=== PATIENT | male | born 1955 | race Caucasian/White ===

== ENCOUNTER 2016-10-30 21:07 | Emergency (ER) | payer OTHER ==
[~2016-10-30] VITALS: Ht 180.3 cm; Wt 86.7 kg
[~2016-10-30 21:07] MED LIST: BLOOD PRESSURE PO; CIPR1TAB11 PO; CYAN100T PO; GABA1CAP4 PO; IBUP-1050 PO; NXM/40 PO; PROM25TA9 PO; XNX25 PO
[2016-10-30 21:10] VITALS: Ht 180.3 cm; Wt 86.7 kg
[2016-10-30] MEDS ORDERED: SODIUM CHLORIDE 0.9% 1000ML 1,000 ML IV STA ×2 (21:24)
[2016-10-30] MEDS ORDERED: PROMETHAZINE HCL INJ 25 MG in SODIUM CHLORIDE 0.9% 50ML 50 ML IV STA (21:24)
[2016-10-30 21:53] VITALS: O2SAT 98
[2016-10-30] MEDS ORDERED: NRV/5 PO (22:06)
[2016-10-30] MEDS ORDERED: METR1TAB4 PO (22:09)
[2016-10-30] MEDS ORDERED: ASCO-63 PO (22:11)
[2016-10-30] MEDS ORDERED: LACTTAB7 PO (22:11)
[2016-10-30 22:12] LABS: URINE APPEARANCE CLEAR (CLEAR); URINE BILIRUBIN NEG (NEG); URINE COLOR YELLOW; URINE NITRITE NEG (NEG); URINE PH 6.5 (4.5-7.5); URINE SPECIFIC GRAVITY 1.015 (1.000-1.030); UROBILINOGEN NEG (NEG); ZZUR CULT IF INDIC CLEAN CATCH NO
[2016-10-30 22:13] LABS: MANUAL MICROSCOPIC REQUIRED? NO; REVIEW REQ? NO
[2016-10-30 22:19] LABS: BASO % 1.1 %; BASO ABS # 0.11 K/uL (0-0.2); COMPLETE YES; HEMATOCRIT 42.2 % (42-52); IG% 0.3 %; LYMPH % 19.4 %; MEAN CELL VOLUME 90.6 fL (80-100); MEAN CORPUSCULAR HGB CONC 35.3 g/dl (32-36); MONO % 9.7 %; NEUT % 68.5 %; PLATELET COUNT 212 K/uL (130-400); RED BLOOD COUNT 4.66 M/uL (4.7-6.1); WHITE BLOOD COUNT 9.79 K/uL (4.8-10.8)
[2016-10-30 22:36] LABS: BUN/CREATININE RATIO 10.8 (10-20); CALCIUM 9.3 mg/dl (8.5-10.1); CREATININE 1.1 mg/dl (0.60-1.40); POTASSIUM 3.7 mmol/L (3.5-5.1)
[2016-10-30] MEDS ORDERED: CIPROFLOXACIN 400MG / 200ML D5W IV STA (22:51)
--- NOTE | 2016-10-30 23:33 | EMERGENCY ROOM VISIT NOTE ---
History First contact with patient: 21:21 Chief Complaint: HEMATURIA Stated Complaint: HEMATURIA History of Present Illness The patient is a 61 year old male who presents to the Emergency Room with complaints of hematuria for the past day has had urinary symptoms for the past week and bladder and flank discomfort. No history of UTIs. He's had kidney stones before but this does not feel the same. Patient smokes marijuana. No tobacco. Patient complains a subjective fever and chills. Patient denies chest pain, dyspnea, vomiting, diarrhea, testicular pain, penile pain, rectal pain. Patient also complains of some nausea. Review of Systems See HPI for pertinent positives & negatives. A total of 10 systems reviewed and were otherwise negative. Past Medical/Surgical History Medical Problems: (1) Diverticulitis (2) Hemorrhoids (3) Rectal fissure Surgical Problems: (1) History of bowel resection (2) S/P appendectomy (3) S/P cholecystectomy Family History Cancer Kidney disease Social History Smoking Status: Never Smoker Alcohol Use: occasionally Drug Use: marijuana Marital Status: Housing Status: lives with significant other Occupation Status: disabled Current/Historical Medications Scheduled Amlodipine Besylate (Amlodipine Besylate), 5 MG PO DAILY Ascorbic Acid (Vitamin C), 1 TAB PO DAILY Cyanocobalamin (Vitamin B-12), Unknown Dose PO DAILY Esomeprazole Magnesium (Nexium), 40 MG PO DAILY Lactobacillus (Acidophilus), 1 TAB PO DAILY Scheduled PRN Alprazolam (Alprazolam), 0.25 MG PO BID PRN for Anxiety Ciprofloxacin Tab (Cipro), 500 MG PO BID PRN for GI Upset Metronidazole (Flagyl), 250 MG PO BID PRN for GI Upset Promethazine Hcl (Phenergan), 25 MG PO Q4H PRN for Nausea Physical Exam Vital Signs Date Time Temp Pulse Resp B/P (MAP) Pulse Ox O2 Delivery O2 Flow Rate FiO2 10/30/16 22:07 61 18 96 10/30/16 22:04 58 10/30/16 22:02 160/79 10/30/16 22:02 59 20 160/79 97 Room Air 10/30/16 21:53 98 Room Air 10/30/16 21:10 36.7 74 20 159/96 98 Room Air Physical Exam VITALS: Vitals are noted on the nurse's note and reviewed by myself. Vital signs hypertensive GENERAL: Pleasant male, in no acute distress, nondiaphoretic appearing older than stated age SKIN: The skin was without rashes, erythema, edema, or bruising. There is no tenting of the skin. Capillary reflex less than 2 seconds. HEAD: Normocephalic atraumatic. EARS: External auditory canals clear, tympanic membranes pearly lópez without erythema or effusion bilaterally. EYES: Pupils equal round and reactive to light and accommodation. Conjunctivae without injection, sclerae without icterus. Extraocular movements intact. NOSE: Patent, turbinates without inflammation or discharge. MOUTH: Mucous membranes mildly dry. Pharynx without erythema or exudate. Uvula midline. Airway patent. Tongue does not deviate. NECK: Supple without nuchal rigidity. No lymphadenopathy. No thyromegaly. Cervical spine is nontender. No JVD. HEART: Regular rate and rhythm without murmurs gallops or rubs. LUNGS: Clear to auscultation bilaterally without wheezes, rales or rhonchi. No dullness to percussion. No retractions or accessory muscle use. ABDOMEN: Positive bowel sounds x 4. Normal tympanic percussion. Soft, minimal discomfort superpubic area, no CVA tenderness, without masses or organomegaly. Powers sign negative. No guarding or rebound tenderness. MUSCULOSKELETAL: No muscle atrophy, erythema, or edema noted. NEURO: Patient was alert and oriented to person place and time. Normal sensation to light and sharp touch. No focal neurological deficits. Medical Decision & Procedures Laboratory Results 10/30/16 22:10 Red Blood Count 4.66, Mean Corpuscular Volume 90.6, Mean Corpuscular Hemoglobin 32.0, Mean Corpuscular Hemoglobin Concent 35.3, Mean Platelet Volume 10.0, Neutrophils (%) (Auto) 68.5, Lymphocytes (%) (Auto) 19.4, Monocytes (%) (Auto) 9.7, Eosinophils (%) (Auto) 1.0, Basophils (%) (Auto) 1.1, Neutrophils # (Auto) 6.70, Lymphocytes # (Auto) 1.90, Monocytes # (Auto) 0.95, Eosinophils # (Auto) 0.10, Basophils # (Auto) 0.11 10/30/16 22:10 Test 10/30/16 22:00 10/30/16 22:10 Urine Color YELLOW Urine Appearance CLEAR (CLEAR) Urine pH 6.5 (4.5-7.5) Urine Specific [place] 1.015 (1.000-1.030) Urine Protein NEG (NEG) Urine Glucose (UA) NEG (NEG) Urine Ketones NEG (NEG) Urine Occult Blood 2+ (NEG) Urine Nitrite NEG (NEG) Urine Bilirubin NEG (NEG) Urine Urobilinogen NEG (NEG) Urine Leukocyte Esterase TRACE (NEG) Urine WBC (Auto) 1-5 /hpf (0-5) Urine RBC (Auto) >30 /hpf (0-4) Urine Hyaline Casts (Auto) 0 /lpf (0-5) Urine Epithelial Cells (Auto) 5-10 /lpf (0-5) Urine Bacteria (Auto) NEG (NEG) White Blood Count 9.79 K/uL (4.8-10.8) Red Blood Count 4.66 M/uL (4.7-6.1) Hemoglobin 14.9 g/dL (14.0-18.0) Hematocrit 42.2 % (42-52) Mean Corpuscular Volume 90.6 fL (80-100) Mean Corpuscular Hemoglobin 32.0 pg (25-34) Mean Corpuscular Hemoglobin Concent 35.3 g/dl (32-36) Platelet Count 212 K/uL (130-400) Mean Platelet Volume 10.0 fL (7.4-10.4) Neutrophils (%) (Auto) 68.5 % Lymphocytes (%) (Auto) 19.4 % Monocytes (%) (Auto) 9.7 % Eosinophils (%) (Auto) 1.0 % Basophils (%) (Auto) 1.1 % Neutrophils # (Auto) 6.70 K/uL (1.4-6.5) Lymphocytes # (Auto) 1.90 K/uL (1.2-3.4) Monocytes # (Auto) 0.95 K/uL (0.11-0.59) Eosinophils # (Auto) 0.10 K/uL (0-0.5) Basophils # (Auto) 0.11 K/uL (0-0.2) RDW Standard Deviation 42.6 fL (36.4-46.3) RDW Coefficient of Variation 12.8 % (11.5-14.5) Immature Granulocyte % (Auto) 0.3 % Immature Granulocyte # (Auto) 0.03 K/uL (0.00-0.02) Prothrombin Time 11.0 SECONDS (9.0-12.0) Prothromb Time International Ratio 1.0 (0.9-1.1) Activated Partial Thromboplast Time 26.2 SECONDS (21.0-31.0) Partial Thromboplastin Ratio 1.0 Anion Gap 6.0 mmol/L (3-11) Est Creatinine Clear Calc Drug Dose 75.1 ml/min Estimated GFR () 83.5 Estimated GFR (Non- 72.1 BUN/Creatinine Ratio 10.8 (10-20) Calcium Level 9.3 mg/dl (8.5-10.1) Total Bilirubin 0.7 mg/dl (0.2-1) Direct Bilirubin 0.2 mg/dl (0-0.2) Aspartate Amino Transf (AST/SGOT) 14 U/L (15-37) Alanine Aminotransferase (ALT/SGPT) 19 U/L (12-78) Alkaline Phosphatase 62 U/L (45-117) Total Creatine Kinase 80 U/L (39-308) Total Protein 6.8 gm/dl (6.4-8.2) Albumin 3.9 gm/dl (3.4-5.0) Lipase 162 U/L (73-393) Medications Administered Medications (Trade) Dose Ordered Sig/Jorge Route Start Time Stop Time Status Last Admin Dose Admin Sodium Chloride 1,000 ml @ 999 mls/hr Q1H1M STAT IV 10/30/16 21:24 10/30/16 22:24 DC 10/30/16 22:04 999 MLS/HR Sodium Chloride 1,000 ml @ 125 mls/hr Q8H STAT IV 10/30/16 21:24 10/31/16 05:23 10/30/16 22:04 125 MLS/HR Promethazine HCl 25 mg/Sodium Chloride 51 ml @ 204 mls/hr NOW STAT IV 10/30/16 21:24 10/30/16 21:38 DC 10/30/16 22:04 204 MLS/HR Ciprofloxacin/ Dextrose (Cipro / D5W) 400 mg NOW STAT IV 10/30/16 22:51 10/30/16 22:52 DC 10/30/16 23:32 400 MG ED Course Prior records/ancillary studies reviewed. Triage Nursing notes reviewed. Additional history obtained from family The patient's history was concerning for hematuria with lower discomfort to his abdominal. Differential diagnosis: Etiologies such as bladder polyps, diverticulitis, PUD, biliary pathology, UTI , pancreatitis, obstruction, mesenteric ischemia, aortic pathology, infections, inflammatory bowel disease, renal colic, as well as others were entertained. Physical examination findings: As above. ER treatment provided: NSS, Phenergan On reassessment the patient felt better. Diagnostics interpreted by me: The labs revealed stable H&H. Hematuria on urinalysis with white blood cells present and sent for culture Imaging studies: US RENAL: Nonobstructing within the right kidney. Simple cyst right kidney. Otherwise, the kidneys are unremarkable. No hydronephrosis. Bilateral ureteral jets are visualized. Radiologist: Milad Riggs MD Exam and history seem consistent with possible urine infection with hematuria. Patient was advised to take antibiotics as directed and follow-up urology in a few days or here in the ER sooner for back pain, fevers, abdominal pain, severe pain, worsening signs or symptoms or as needed. Patient did not have an acute abdomen on exam. He is well-appearing. No leukocytosis. Stable H&H. By the evaluation outlined above emergent etiologies such as diverticulitis, PUD, biliary pathology, pancreatitis, obstruction, mesenteric ischemia, aortic pathology, inflammatory bowel disease, renal colic, as well as others were deemed relatively unlikely. The pt informed about the findings as listed above. All questions were answered and pleased with the treatment. Return instructions were outlined and the patient was discharged in stable condition. Outpatient prescription management: Cipro Referral: The patient was referred back to their primary care physician and urology for follow-up in 2 to 3 days for a recheck of the current condition. case reviewed with my Attending. Medical Decision As above Medication Reconcilliation Current Medication List: was personally reviewed by me Blood Pressure Screening Patient's blood pressure: Elevated blood pressure Blood pressure disposition: Elevated BP felt to be situational Impression Primary Impression: UTI (urinary tract infection) Additional Impression: Hematuria Departure Information Dispostion Home / Self-Care Condition GOOD Referrals Chloe Flores C.R.N.P. (PCP) Patient Instructions My [facility] Additional Instructions Ciprofloxacin(Cipro) 500mg: Take one pill twice daily for 7 days for your urine infection. All antibiotics can cause diarrhea. If this occurs and you feel worse or it does not resolve in 1-2 days follow up with your doctor or return to the Emergency Department as this could be signs of serious underlying problems. If you experience any pain in your tendons or any tendon injury return to the ER for re-evaluation. Any medication can cause an allergic reaction, stop the pills immediately and return to the ER for rash, hives, breathing difficulties, or swelling. Acetaminophen(Tylenol) may be used for fever or pain. Use 1000mg every six hours as needed. Avoid using more than 3000mg in a 24 hour period. Rest and drink plenty of fluids as tolerated. Slow sips of water or sports drinks are recommended instead of large amounts all at once. Continue current medications. Once your stomach is settled start with a clear liquid diet (jello, soup broth, etc.) and then advance as tolerated. You should avoid full, heavy meals for about 24 hrs from the time your symptoms resolved. Return to the ER immediately for worsening or persistent abdominal/back pain, vomiting, fevers, worsening of your condition, or as needed. Follow up with urology within 2-3 days for a recheck of the current condition. Call for an appointment. Problem Qualifiers Primary Impression: UTI (urinary tract infection) Urinary tract infection type: acute cystitis Hematuria presence: with hematuria Qualified Codes: N30.01 - Acute cystitis with hematuria Additional Impression: Hematuria Hematuria type: unspecified type Qualified Codes: R31.9 - Hematuria, unspecified
[2016-10-30] MEDS ORDERED: CIPR1TAB10 PO (23:35)
--- NOTE | 2016-10-30 23:40 | EMERGENCY ROOM VISIT NOTE ---
ED Visit Note First contact with patient: 21:36 Agree with the physician or assistant's evaluation of this patient. Patient's ultrasound was negative, patient has hematuria will be treated with an antibiotic and referred to urology for further evaluation. We did discuss the findings with the patient at bedside at 2340 Problem List Medical Problems: (1) Diverticulitis Status: Resolved (2) Hemorrhoids Status: Resolved (3) Rectal fissure Status: Resolved Surgical Problems: (1) History of bowel resection Status: Resolved (2) S/P appendectomy Status: Resolved (3) S/P cholecystectomy Status: Resolved Current/Historical Medications Scheduled Amlodipine Besylate (Amlodipine Besylate), 5 MG PO DAILY Ascorbic Acid (Vitamin C), 1 TAB PO DAILY Ciprofloxacin Hcl (Cipro), 500 MG PO BID Cyanocobalamin (Vitamin B-12), Unknown Dose PO DAILY Esomeprazole Magnesium (Nexium), 40 MG PO DAILY Lactobacillus (Acidophilus), 1 TAB PO DAILY Scheduled PRN Alprazolam (Alprazolam), 0.25 MG PO BID PRN for Anxiety Ciprofloxacin Tab (Cipro), 500 MG PO BID PRN for GI Upset Metronidazole (Flagyl), 250 MG PO BID PRN for GI Upset Promethazine Hcl (Phenergan), 25 MG PO Q4H PRN for Nausea Allergies Coded Allergies: Latex1 -Allergic Contact Dermititis (Verified Allergy, Mild, REDNESS, ) Vital Signs Date Time Temp Pulse Resp B/P (MAP) Pulse Ox O2 Delivery O2 Flow Rate FiO2 10/30/16 22:07 61 18 96 10/30/16 22:04 58 10/30/16 22:02 160/79 10/30/16 22:02 59 20 160/79 97 Room Air 10/30/16 21:53 98 Room Air 10/30/16 21:10 36.7 74 20 159/96 98 Room Air Laboratory Results 10/30/16 22:10 Red Blood Count 4.66, Mean Corpuscular Volume 90.6, Mean Corpuscular Hemoglobin 32.0, Mean Corpuscular Hemoglobin Concent 35.3, Mean Platelet Volume 10.0, Neutrophils (%) (Auto) 68.5, Lymphocytes (%) (Auto) 19.4, Monocytes (%) (Auto) 9.7, Eosinophils (%) (Auto) 1.0, Basophils (%) (Auto) 1.1, Neutrophils # (Auto) 6.70, Lymphocytes # (Auto) 1.90, Monocytes # (Auto) 0.95, Eosinophils # (Auto) 0.10, Basophils # (Auto) 0.11 10/30/16 22:10 Test 10/30/16 22:00 10/30/16 22:10 Urine Color YELLOW Urine Appearance CLEAR (CLEAR) Urine pH 6.5 (4.5-7.5) Urine Specific [place] 1.015 (1.000-1.030) Urine Protein NEG (NEG) Urine Glucose (UA) NEG (NEG) Urine Ketones NEG (NEG) Urine Occult Blood 2+ (NEG) Urine Nitrite NEG (NEG) Urine Bilirubin NEG (NEG) Urine Urobilinogen NEG (NEG) Urine Leukocyte Esterase TRACE (NEG) Urine WBC (Auto) 1-5 /hpf (0-5) Urine RBC (Auto) >30 /hpf (0-4) Urine Hyaline Casts (Auto) 0 /lpf (0-5) Urine Epithelial Cells (Auto) 5-10 /lpf (0-5) Urine Bacteria (Auto) NEG (NEG) White Blood Count 9.79 K/uL (4.8-10.8) Red Blood Count 4.66 M/uL (4.7-6.1) Hemoglobin 14.9 g/dL (14.0-18.0) Hematocrit 42.2 % (42-52) Mean Corpuscular Volume 90.6 fL (80-100) Mean Corpuscular Hemoglobin 32.0 pg (25-34) Mean Corpuscular Hemoglobin Concent 35.3 g/dl (32-36) Platelet Count 212 K/uL (130-400) Mean Platelet Volume 10.0 fL (7.4-10.4) Neutrophils (%) (Auto) 68.5 % Lymphocytes (%) (Auto) 19.4 % Monocytes (%) (Auto) 9.7 % Eosinophils (%) (Auto) 1.0 % Basophils (%) (Auto) 1.1 % Neutrophils # (Auto) 6.70 K/uL (1.4-6.5) Lymphocytes # (Auto) 1.90 K/uL (1.2-3.4) Monocytes # (Auto) 0.95 K/uL (0.11-0.59) Eosinophils # (Auto) 0.10 K/uL (0-0.5) Basophils # (Auto) 0.11 K/uL (0-0.2) RDW Standard Deviation 42.6 fL (36.4-46.3) RDW Coefficient of Variation 12.8 % (11.5-14.5) Immature Granulocyte % (Auto) 0.3 % Immature Granulocyte # (Auto) 0.03 K/uL (0.00-0.02) Prothrombin Time 11.0 SECONDS (9.0-12.0) Prothromb Time International Ratio 1.0 (0.9-1.1) Activated Partial Thromboplast Time 26.2 SECONDS (21.0-31.0) Partial Thromboplastin Ratio 1.0 Anion Gap 6.0 mmol/L (3-11) Est Creatinine Clear Calc Drug Dose 75.1 ml/min Estimated GFR () 83.5 Estimated GFR (Non- 72.1 BUN/Creatinine Ratio 10.8 (10-20) Calcium Level 9.3 mg/dl (8.5-10.1) Total Bilirubin 0.7 mg/dl (0.2-1) Direct Bilirubin 0.2 mg/dl (0-0.2) Aspartate Amino Transf (AST/SGOT) 14 U/L (15-37) Alanine Aminotransferase (ALT/SGPT) 19 U/L (12-78) Alkaline Phosphatase 62 U/L (45-117) Total Creatine Kinase 80 U/L (39-308) Total Protein 6.8 gm/dl (6.4-8.2) Albumin 3.9 gm/dl (3.4-5.0) Lipase 162 U/L (73-393) Medications Administered Medications (Trade) Dose Ordered Sig/Jorge Route Start Time Stop Time Status Last Admin Dose Admin Sodium Chloride 1,000 ml @ 999 mls/hr Q1H1M STAT IV 10/30/16 21:24 10/30/16 22:24 DC 10/30/16 22:04 999 MLS/HR Sodium Chloride 1,000 ml @ 125 mls/hr Q8H STAT IV 10/30/16 21:24 10/31/16 05:23 10/30/16 22:04 125 MLS/HR Promethazine HCl 25 mg/Sodium Chloride 51 ml @ 204 mls/hr NOW STAT IV 10/30/16 21:24 10/30/16 21:38 DC 10/30/16 22:04 204 MLS/HR Ciprofloxacin/ Dextrose (Cipro / D5W) 400 mg NOW STAT IV 10/30/16 22:51 10/30/16 22:52 DC 10/30/16 23:32 400 MG Departure Information Impression Primary Impression: UTI (urinary tract infection) Additional Impression: Hematuria Dispostion Home / Self-Care Condition GOOD Prescriptions Ciprofloxacin Hcl (CIPRO) 500 Mg Tab 500 MG PO BID for 7 Days, #14 TAB Prov: Shruthi Sommers .DARLING 10/30/16 Referrals Chloe Flores C.R.N.P. (PCP) Aron Valenzuela MD Forms WORK / SCHOOL INSTRUCTIONS, HOME CARE DOCUMENTATION FORM, IMPORTANT VISIT INFORMATION Patient Instructions Hematuria, UTI, My [facility] Additional Instructions Ciprofloxacin(Cipro) 500mg: Take one pill twice daily for 7 days for your urine infection. All antibiotics can cause diarrhea. If this occurs and you feel worse or it does not resolve in 1-2 days follow up with your doctor or return to the Emergency Department as this could be signs of serious underlying problems. If you experience any pain in your tendons or any tendon injury return to the ER for re-evaluation. Any medication can cause an allergic reaction, stop the pills immediately and return to the ER for rash, hives, breathing difficulties, or swelling. Acetaminophen(Tylenol) may be used for fever or pain. Use 1000mg every six hours as needed. Avoid using more than 3000mg in a 24 hour period. Rest and drink plenty of fluids as tolerated. Slow sips of water or sports drinks are recommended instead of large amounts all at once. Continue current medications. Once your stomach is settled start with a clear liquid diet (jello, soup broth, etc.) and then advance as tolerated. You should avoid full, heavy meals for about 24 hrs from the time your symptoms resolved. Return to the ER immediately for worsening or persistent abdominal/back pain, vomiting, fevers, worsening of your condition, or as needed. Follow up with urology within 2-3 days for a recheck of the current condition. Call for an appointment. Problem Qualifiers
[2016-10-30] MEDS ORDERED: ONDANSETRON HOME PACK 4MG OD TAB PO ONE (23:45)
[2016-10-30] MEDS ORDERED: CIPROFLOXACIN 500MG HOME PACK PO ONE (23:45)
[2016-10-30 23:52] VITALS: BP 160/79; PULSE 61; TEMP 36.7; O2SAT 96
--- NOTE | 2016-10-31 07:10 | DIAGNOSTIC IMAGING REPORT ---
RENAL ULTRASOUND HISTORY: HEMATURIA, FLANK PAIN COMPARISON: Abdomen and pelvis CT 07/08/2015. FINDINGS: Right kidney: 10.6 cm. No hydronephrosis. Normal corticomedullary differentiation and cortical thickness. A 1.3 cm interpolar stone. A 1.5 cm lower pole cyst. A 1.1 cm interpolar cyst. Left kidney: 10.8 cm. No hydronephrosis. Normal corticomedullary differentiation and cortical thickness. Bladder: No bladder wall thickening. The bilateral ureteral jets were identified. IMPRESSION: Stable right-sided nephrolithiasis. No hydronephrosis. Stable right renal cysts. Electronically signed by: Gurvinder Dickey M.D. 10/31/2016 7:08 AM Dictated Date/Time: 10/31/2016 7:06 AM
== END 2016-10-30 23:52 | disposition home or self-care (01) ==
LOC: C.EDB 21:08 → C.EDC 23:52
DX: N39.0 Urinary tract infection, site not specified (principal); R31.9 Hematuria, unspecified; K57.92 Diverticulitis of intestine, part unspecified, without perforation or abscess without bleeding; Z90.49 Acquired absence of other specified parts of digestive tract; Z98.890 Other specified postprocedural states; Z80.9 Family history of malignant neoplasm, unspecified; Z84.1 Family history of disorders of kidney and ureter

== ENCOUNTER 2016-11-05 07:08 | Emergency (ER) | payer OTHER ==
[~2016-11-05] VITALS: Ht 180.3 cm; Wt 87.4 kg
[~2016-11-05 07:08] MED LIST changes: +ASCO-63 PO; -BLOOD PRESSURE PO; +CIPR1TAB10 PO; -GABA1CAP4 PO; -IBUP-1050 PO; +LACTTAB7 PO; +METR1TAB4 PO; +NRV/5 PO
[2016-11-05 07:12] VITALS: TEMP 36.4; Ht 180.3 cm; Wt 87.4 kg
[2016-11-05] MEDS ORDERED: MoRPHine SULFATE 4 MG/ML 1 ML CARP\\VIAL IV STA (07:37)
[2016-11-05] MEDS ORDERED: SODIUM CHLORIDE 0.9% 1000ML 1,000 ML IV STA (07:37)
[2016-11-05] MEDS ORDERED: ONDANSETRON INJ 2 MG/ML 2 ML VIAL IV STA (07:37)
[2016-11-05 07:57] LABS: BASO % 1.6 %; BASO ABS # 0.13 K/uL (0-0.2); COMPLETE YES; EOS % 2.1 %; HEMATOCRIT 43.9 % (42-52); IG% 0.2 %; LYMPH ABS # 2.27 K/uL (1.2-3.4); MEAN CELL VOLUME 87.5 fL (80-100); MEAN CORPUSCULAR HEMOGLOBIN 32.1 pg (25-34); MEAN CORPUSCULAR HGB CONC 36.7 g/dl (32-36); MEAN PLATELET VOLUME 10.4 fL (7.4-10.4); MONO % 14.9 %; NEUT % 53.2 %; PLATELET COUNT 248 K/uL (130-400); RED BLOOD COUNT 5.02 M/uL (4.7-6.1)
--- NOTE | 2016-11-05 08:21 | DIAGNOSTIC IMAGING REPORT ---
ABD/PELVIS WITHOUT FOR STONE CT DOSE: 1448.43 mGy.cm HISTORY: Pain 07/08/2015 TECHNIQUE: Multiaxial CT images of the abdomen and pelvis were performed without the use of intravenous and oral contrast according to the standard department stone protocol. A dose lowering technique was utilized adhering to the principles of ALARA. COMPARISON STUDY: 07/08/2015 FINDINGS: Lung bases are clear. Liver spleen and pancreas are unremarkable. Prior cholecystectomy. The adrenal glands are normal. 2 5 mm nonobstructing calcifications mid pole right kidney. Small cyst lower aspect right kidney unchanged in the prior study. No evidence for an obstructing urinary tract calculus. The bowel pattern is nonobstructive. Findings of chronic sigmoid diverticulosis. No evidence for acute diverticulitis. Lipoma anterior to the right hip unchanged in the prior study. This is considered a benign finding. IMPRESSION: 1. No acute process the abdomen or pelvis. 2. 2 nonobstructing right renal calcifications. 3. Chronic sigmoid diverticulosis. 4. No evidence for acute diverticulitis. The above report was generated using voice recognition software. It may contain grammatical, syntax or spelling errors. Electronically signed by: Eric Mendez M.D. 11/05/2016 8:20 AM Dictated Date/Time: 11/05/2016 8:14 AM
[2016-11-05 08:23] LABS: MANUAL MICROSCOPIC REQUIRED? NO; REVIEW REQ? NO; URINE APPEARANCE CLEAR (CLEAR); URINE BILIRUBIN NEG (NEG); URINE COLOR YELLOW; URINE EPITHELIAL CELL AUTO >30 /lpf (0-5); URINE NITRITE NEG (NEG); URINE SPECIFIC GRAVITY 1.015 (1.000-1.030); UROBILINOGEN NEG (NEG)
[2016-11-05 08:54] LABS: ALB/GLOB RATIO 1.3 (0.9-2); ALKALINE PHOSPHATASE 60 U/L (45-117); ALT/SGPT 29 U/L (12-78); AMYLASE 44 U/L (25-115); BLOOD UREA NITROGEN 7 mg/dl (7-18); BUN/CREATININE RATIO 5.8 (10-20); CALCIUM 9.3 mg/dl (8.5-10.1); CARBON DIOXIDE 19 mmol/L (21-32); CHLORIDE 108 mmol/L (98-107); GLUCOSE 98 mg/dl (70-99); SODIUM 139 mmol/L (136-145)
[2016-11-05] MEDS ORDERED: ONDA4TAB65 PO (09:15)
[2016-11-05 09:34] VITALS: BP 135/89; PULSE 67; O2SAT 97
--- NOTE | 2016-11-05 18:30 | EMERGENCY ROOM VISIT NOTE ---
History First contact with patient: 07:20 Chief Complaint: ABDOMINAL PAIN Stated Complaint: ABD PAIN Nursing Triage Summary: pt states,"I am very very sick. I was in on sunday for nausea and blood in my urine. they said I had a UTI and Tahmina been taking Cipro.." patient c/o increased nausea, bilateral flank pain that radiates to abdomen. History of Present Illness The patient is a 61 year old white male who presents to the Emergency Room with complaints of caused abdominal pain and bilateral flank pain as been present since Sunday. Patient was evaluated here on Sunday and thought to have a UTI. He was placed on Cipro and sent home. He states the pain has not improved. He did have hematuria on Sunday and this has resolved. He has been very nauseated but denies any vomiting. No fevers or chills. No diarrhea. Normal bowel movements. He does have a history of diverticulitis and is wondering if this has flared. No abdominal trauma. His accompanies him today. No other treatment. He states he has been trying to eat but really has lost his appetite. Review of Systems REVIEW OF SYSTEM: HEENT: No dizziness, visual problems, hearing loss, or tinnitus. There is no difficulty swallowing and no oral lesions are present. PULMONARY: No cough, shortness of breath, sputum production or hemoptysis. CARDIOVASCULAR: No chest pain, palpitations, shortness of breath or peripheral edema. GASTROINTESTINAL: No diarrhea, constipation or vomiting. Positive nausea and abdominal pain. GENITOURINARY: No dysuria, frequency, urgency or nocturia. NEUROLOGIC: No weakness, muscle tenderness, epilepsy or history of neurological problems. MUSCULOSKELETAL: No history of joint tenderness/swelling. No history of arthritis or arthralgias. SKIN: No rashes or lesions. PSYCHIATRIC: No history of depression or mental illness. ENDOCRINE: No history of diabetes, thyroid disorders, or abnormal hair growth. Past Medical/Surgical History Medical Problems: (1) Diverticulitis (2) Hemorrhoids (3) Rectal fissure Surgical Problems: (1) History of bowel resection (2) S/P appendectomy (3) S/P cholecystectomy Family History Cancer Kidney disease Social History Smoking Status: Never Smoker Smokeless Tobacco Use: No Alcohol Use: occasionally Drug Use: marijuana Marital Status: Housing Status: lives with significant other Occupation Status: disabled Current/Historical Medications Scheduled Amlodipine Besylate (Amlodipine Besylate), 5 MG PO DAILY Ascorbic Acid (Vitamin C), 1 TAB PO DAILY Ciprofloxacin Hcl (Cipro), 500 MG PO BID Cyanocobalamin (Vitamin B-12), 500 MCG PO DAILY Esomeprazole Magnesium (Nexium), 40 MG PO DAILY Lactobacillus (Acidophilus), 1 TAB PO DAILY Scheduled PRN Alprazolam (Alprazolam), 0.25 MG PO BID PRN for Anxiety Ciprofloxacin Tab (Cipro), 500 MG PO BID PRN for GI Upset Metronidazole (Flagyl), 250 MG PO BID PRN for GI Upset Ondansetron Hcl (Zofran), 1 TAB PO Q6H PRN for Nausea or Vomiting Promethazine Hcl (Phenergan), 25 MG PO Q4H PRN for Nausea Physical Exam Vital Signs Date Time Temp Pulse Resp B/P (MAP) Pulse Ox O2 Delivery O2 Flow Rate FiO2 11/05/16 09:34 67 18 135/89 97 11/05/16 08:43 64 16 93/73 99 Room Air 11/05/16 07:12 36.4 84 22 141/91 100 Room Air Physical Exam Gen.: Well developed, well-nourished, middle-aged white male, in obvious discomfort. No acute distress. Sitting on the bed. Alert and oriented. Skin:Warm and dry with good turgor. No rashes or lesions. No ecchymosis or erythema. The patient is not diaphoretic. No abrasions. Heart: Heart RRR. No MGR. Peripheral pulses are 2+. Lungs: Lungs are clear to auscultation. No crackles rhonchi or wheezing. Good air movement. The patient is able to take a deep breath. Abdomen: Abdomen was inspected, auscultated, and palpated. Multiple scars. Bowel sounds present x 4. Soft, diffuse tenderness to palpation. No hepato- splenomegaly. No masses noted. No rebound, negative Powers sign. No specific pain over McBurney's point. Bilateral CVA tenderness. Musculoskeletal: Gross motor function to the upper and lower extremities is intact and unremarkable. Medical Decision & Procedures ER Provider Diagnostic Interpretation: CT scan imaging of the abdomen and pelvis was obtained today to rule out ureterolithiasis. This was read by radiology as positive for nonobstructing right intrarenal stones. No ureterolithiasis. No hydronephrosis. Chronic sigmoid diverticulosis. No evidence for diverticulitis, obstruction, or intra- abdominal mass.. No acute process the abdomen or pelvis. Laboratory Results 11/05/16 07:45 Red Blood Count 5.02, Mean Corpuscular Volume 87.5, Mean Corpuscular Hemoglobin 32.1, Mean Corpuscular Hemoglobin Concent 36.7, Mean Platelet Volume 10.4, Neutrophils (%) (Auto) 53.2, Lymphocytes (%) (Auto) 28.0, Monocytes (%) (Auto) 14.9, Eosinophils (%) (Auto) 2.1, Basophils (%) (Auto) 1.6, Neutrophils # (Auto ) 4.30, Lymphocytes # (Auto) 2.27, Monocytes # (Auto) 1.21, Eosinophils # (Auto ) 0.17, Basophils # (Auto) 0.13 11/05/16 07:45 Test 11/05/16 07:45 White Blood Count 8.10 K/uL (4.8-10.8) Red Blood Count 5.02 M/uL (4.7-6.1) Hemoglobin 16.1 g/dL (14.0-18.0) Hematocrit 43.9 % (42-52) Mean Corpuscular Volume 87.5 fL (80-100) Mean Corpuscular Hemoglobin 32.1 pg (25-34) Mean Corpuscular Hemoglobin Concent 36.7 g/dl (32-36) Platelet Count 248 K/uL (130-400) Mean Platelet Volume 10.4 fL (7.4-10.4) Neutrophils (%) (Auto) 53.2 % Lymphocytes (%) (Auto) 28.0 % Monocytes (%) (Auto) 14.9 % Eosinophils (%) (Auto) 2.1 % Basophils (%) (Auto) 1.6 % Neutrophils # (Auto) 4.30 K/uL (1.4-6.5) Lymphocytes # (Auto) 2.27 K/uL (1.2-3.4) Monocytes # (Auto) 1.21 K/uL (0.11-0.59) Eosinophils # (Auto) 0.17 K/uL (0-0.5) Basophils # (Auto) 0.13 K/uL (0-0.2) RDW Standard Deviation 40.7 fL (36.4-46.3) RDW Coefficient of Variation 12.7 % (11.5-14.5) Immature Granulocyte % (Auto) 0.2 % Immature Granulocyte # (Auto) 0.02 K/uL (0.00-0.02) Urine Color YELLOW Urine Appearance CLEAR (CLEAR) Urine pH 6.0 (4.5-7.5) Urine Specific [place] 1.015 (1.000-1.030) Urine Protein NEG (NEG) Urine Glucose (UA) NEG (NEG) Urine Ketones 1+ (NEG) Urine Occult Blood NEG (NEG) Urine Nitrite NEG (NEG) Urine Bilirubin NEG (NEG) Urine Urobilinogen NEG (NEG) Urine Leukocyte Esterase TRACE (NEG) Urine WBC (Auto) 1-5 /hpf (0-5) Urine RBC (Auto) 0-4 /hpf (0-4) Urine Hyaline Casts (Auto) 10-30 /lpf (0-5) Urine Epithelial Cells (Auto) >30 /lpf (0-5) Urine Bacteria (Auto) NEG (NEG) Anion Gap 12.0 mmol/L (3-11) Est Creatinine Clear Calc Drug Dose 68.8 ml/min Estimated GFR () 75.2 Estimated GFR (Non- 64.9 BUN/Creatinine Ratio 5.8 (10-20) Calcium Level 9.3 mg/dl (8.5-10.1) Total Bilirubin 1.1 mg/dl (0.2-1) Aspartate Amino Transf (AST/SGOT) U/L (15-37) Alanine Aminotransferase (ALT/SGPT) 29 U/L (12-78) Alkaline Phosphatase 60 U/L (45-117) Total Protein 7.7 gm/dl (6.4-8.2) Albumin 4.3 gm/dl (3.4-5.0) Globulin 3.4 gm/dl (2.5-4.0) Albumin/Globulin Ratio 1.3 (0.9-2) Amylase Level 44 U/L (25-115) Lipase 212 U/L (73-393) CBC, chem panel, amylase, lipase, and UA were obtained. They're unremarkable. Urine was sent for culture and sensitivity. Medications Administered Medications (Trade) Dose Ordered Sig/Jorge Route Start Time Stop Time Status Last Admin Dose Admin Sodium Chloride 1,000 ml @ 999 mls/hr Q1H1M STAT IV 11/05/16 07:37 11/05/16 08:37 DC 11/05/16 07:59 999 MLS/HR Ondansetron HCl (Zofran Inj) 4 mg NOW STAT IV 11/05/16 07:37 11/05/16 07:39 DC 11/05/16 07:57 4 MG Morphine Sulfate (MoRPHine SULFATE INJ) 4 mg NOW STAT IV 11/05/16 07:37 11/05/16 07:39 DC 11/05/16 07:57 4 MG 4 mg IV, Zofran 4 mg IV, 1 L normal sterile saline IV bolus ED Course Patient and his were educated regarding today's findings. Conservative care measures were discussed. IV was established. Labs were obtained. He was hydrated with 1 L normal sterile saline. Patient was given morphine 4 mg IV and Zofran 4 mg IV his pain and nausea. These both improved. He was given a prescription for Zofran 4 mg to be used at home. He already has a prescription for Phenergan states it was not effective. Follow-up with his PCP to discuss any further evaluation. Maintain hydration. He was previously placed on Cipro and Flagyl due to a possible UTI. Cultures were negative. He may stop the Flagyl and Cipro. He'll be notified if his new urine cultures grow anything. The Flagyl may have been contributing to his nausea. Return to the ED for any other concerns. Medical Decision Possibility of kidney stone, nephritis, bowel obstruction, diverticulitis, and hernia were considered among others. Medication Reconcilliation Current Medication List: was personally reviewed by ak Blood Pressure Screening Patient's blood pressure: Normal blood pressure Impression Primary Impression: Abdominal pain in male Additional Impression: Bilateral flank pain Departure Information Prescriptions Ondansetron Hcl (ZOFRAN) 4 Mg Tab 1 TAB PO Q6H Y for Nausea or Vomiting, #12 TAB Prov: Chidi Yu,P.A. 11/05/16 Referrals Chloe Flores C.R.N.P. (PCP) Patient Instructions My [facility] Problem Qualifiers
== END 2016-11-05 09:35 | disposition home or self-care (01) ==
LOC: C.EDB 07:08
DX: R10.9 Unspecified abdominal pain (principal); K57.92 Diverticulitis of intestine, part unspecified, without perforation or abscess without bleeding; F12.90 Cannabis use, unspecified, uncomplicated

== ENCOUNTER 2016-11-08 18:01 | Emergency (ER) | payer OTHER ==
[~2016-11-08] VITALS: Ht 180.3 cm; Wt 93.0 kg
[~2016-11-08 18:01] MED LIST changes: -CIPR1TAB10 PO; +ONDA4TAB65 PO
[2016-11-08 18:09] VITALS: TEMP 36.7; Ht 180.3 cm; Wt 93.0 kg
[2016-11-08] MEDS ORDERED: ONDANSETRON INJ 2 MG/ML 2 ML VIAL IV STA (18:40)
[2016-11-08] MEDS ORDERED: SODIUM CHLORIDE 0.9% 1000ML 1,000 ML IV STA (18:40)
[2016-11-08] MEDS ORDERED: GI COCKTAIL PO STA (18:40)
[2016-11-08] MEDS ORDERED: SUCRALFATE 1 GM TAB PO STA (18:40)
[2016-11-08] MEDS ORDERED: FAMOTIDINE 20 MG TAB PO STA (18:40)
--- NOTE | 2016-11-08 18:40 | EMERGENCY ROOM VISIT NOTE ---
History Report prepared by Hannah: Rachele Oliveira Under the Supervision of: Dr. Juliocesar Perry M.D. First contact with patient: 18:26 Chief Complaint: NAUSEA Stated Complaint: NAUSEA Nursing Triage Summary: pt to the ED with c/o nausea and LLQ pain History of Present Illness The patient is a 61 year old male who presents to the Emergency Room with complaints of constant nausea beginning 9 days ago. The patient states that he has been seen here 3 times in the last 9 days for similar symptoms. The patient states that 9 days ago he had hematuria and was seen here and had an ultrasound that was normal. He reports that he was not feeling better and came back in a few days later and got a CT scan that was also normal. The patient notes that he has a history of diverticulitis and was started on Cipro and Flagyl but was told to stop taking it. He notes that he saw his PCP was given Zofran that has not relieved his symptoms. The patient complains of LLQ cramping, weight loss, and lack of appetite. He denies any bloody stool and diarrhea. He notes that he has a history of hypertension and colon resection. The patient states that he was feeling better this morning and did not take his Zofran but began feeling nauseous again this afternoon. Source of History: patient Onset: 9 days ago Position: other (global) Quality: other (nausea) Timing: constant Associated Symptoms: No diarrhea Note: The patient complains of LLQ cramping, weight loss, and lack of appetite. Review of Systems See HPI for pertinent positives & negatives. A total of 10 systems reviewed and were otherwise negative. Past Medical & Surgical Medical Problems: (1) Diverticulitis (2) Hemorrhoids (3) Rectal fissure Surgical Problems: (1) History of bowel resection (2) S/P appendectomy (3) S/P cholecystectomy Family History Cancer Kidney disease Social History Smoking Status: Never Smoker Smokeless Tobacco Use: No Alcohol Use: none Drug Use: marijuana Marital Status: Housing Status: lives with significant other Occupation Status: disabled Current/Historical Medications Scheduled Ascorbic Acid (Vitamin C), 1 TAB PO DAILY Cyanocobalamin (Vitamin B-12), 500 MCG PO DAILY Esomeprazole Magnesium (Nexium), 40 MG PO DAILY Lactobacillus (Acidophilus), 1 TAB PO DAILY Scheduled PRN Alprazolam (Alprazolam), 0.25 MG PO BID PRN for Anxiety Amlodipine Besylate (Amlodipine Besylate), 5 MG PO DAILY PRN for Ciprofloxacin Tab (Cipro), 500 MG PO BID PRN for GI Upset Metoclopramide (Reglan), 10 MG PO Q6H PRN for Nausea Metronidazole (Flagyl), 250 MG PO BID PRN for GI Upset Ondansetron Hcl (Zofran), 1 TAB PO Q6H PRN for Nausea or Vomiting Promethazine Hcl (Phenergan), 25 MG PO Q4H PRN for Nausea Allergies Coded Allergies: Latex1 -Allergic Contact Dermititis (Verified Allergy, Mild, REDNESS, 11/08) Physical Exam Vital Signs Date Time Temp Pulse Resp B/P (MAP) Pulse Ox O2 Delivery O2 Flow Rate FiO2 11/08/16 22:47 65 18 140/101 97 11/08/16 21:26 71 20 117/81 97 Room Air 11/08/16 19:39 61 16 144/89 98 Room Air 11/08/16 19:22 65 11/08/16 18:56 Room Air 11/08/16 18:56 96 Room Air 11/08/16 18:09 36.7 71 18 145/96 99 Room Air Physical Exam GENERAL: Patient is a healthy-appearing well-nourished male HEAD: Normocephalic atraumatic EYES: Ocular movements intact pupils equal and react to light OROPHARYNX mucous membranes are moist no exudates present no erythema or edema present NECK: Supple no nuchal rigidity CHEST: Good equal expansion LUNGS: Clear and equal to auscultation CARDIAC: Normal S1 and S2 ABDOMEN: Soft nontender no guarding, old surgical scar that has healed well BACK: No CVA tenderness EXTREMITIES: No pain upon palpation normal muscle strength in all groups no clubbing cyanosis or edema NEURO: Patient is following commands and answering questions appropriately. Alert and oriented x3 Cranial Nerves 2-12 grossly intact Medical Decision & Procedures ER Provider Diagnostic Interpretation: Radiology results as stated below per my review and radiologist interpretation: CHEST ONE VIEW PORTABLE FINDINGS: The bones soft tissues and hemidiaphragms are normal. The cardiomediastinal silhouette is normal. The lungs are clear. The pulmonary vasculature is normal. IMPRESSION: Negative chest. The above report was generated using voice recognition software. It may contain grammatical, syntax or spelling errors. Electronically signed by: Eric Mendez M.D. 11/08/2016 7:29 PM Dictated Date/Time: 11/08/2016 7:29 PM ABD/PELVIS IV AND ORAL CONT FINDINGS: Lung bases are clear. Patient status post cholecystectomy. Liver is uniform throughout. Spleen is unremarkable. Pancreas is within normal limits. There is nonobstructing right renal calcification. There is a small right renal cyst. There is no evidence for an obstructing urinary tract calculus. Mild bladder wall thickening. Findings of scattered colonic diverticulosis. There is no evidence for acute diverticulitis. Lipoma anterior to the right hip is unchanged. IMPRESSION: 1. Mild chronic colonic diverticulosis. Area 2. Mild fatty infiltration of liver. 3. No acute process the abdomen or pelvis. 4. Mild bladder wall thickening. The above report was generated using voice recognition software. It may contain grammatical, syntax or spelling errors. Electronically signed by: Eric Mendez M.D. 11/08/2016 9:30 PM Dictated Date/Time: 11/08/2016 9:25 PM Laboratory Results 11/08/16 19:08 Red Blood Count 4.68, Mean Corpuscular Volume 89.5, Mean Corpuscular Hemoglobin 31.2, Mean Corpuscular Hemoglobin Concent 34.8, Mean Platelet Volume 10.6, Neutrophils (%) (Auto) 57.3, Lymphocytes (%) (Auto) 28.9, Monocytes (%) (Auto) 10.6, Eosinophils (%) (Auto) 1.5, Basophils (%) (Auto) 1.4, Neutrophils # (Auto ) 5.49, Lymphocytes # (Auto) 2.77, Monocytes # (Auto) 1.01, Eosinophils # (Auto ) 0.14, Basophils # (Auto) 0.13 11/08/16 19:08 Test 11/08/16 19:05 11/08/16 19:08 Urine Color YELLOW Urine Appearance CLEAR (CLEAR) Urine pH 6.5 (4.5-7.5) Urine Specific [place] 1.012 (1.000-1.030) Urine Protein NEG (NEG) Urine Glucose (UA) NEG (NEG) Urine Ketones TRACE (NEG) Urine Occult Blood NEG (NEG) Urine Nitrite NEG (NEG) Urine Bilirubin NEG (NEG) Urine Urobilinogen NEG (NEG) Urine Leukocyte Esterase NEG (NEG) Lyme Disease IgG Antibody NEG (NEG) Lyme Disease IgM Antibody NEG (NEG) Monoscreen NEG (NEG) White Blood Count 9.57 K/uL (4.8-10.8) Red Blood Count 4.68 M/uL (4.7-6.1) Hemoglobin 14.6 g/dL (14.0-18.0) Hematocrit 41.9 % (42-52) Mean Corpuscular Volume 89.5 fL (80-100) Mean Corpuscular Hemoglobin 31.2 pg (25-34) Mean Corpuscular Hemoglobin Concent 34.8 g/dl (32-36) Platelet Count 273 K/uL (130-400) Mean Platelet Volume 10.6 fL (7.4-10.4) Neutrophils (%) (Auto) 57.3 % Lymphocytes (%) (Auto) 28.9 % Monocytes (%) (Auto) 10.6 % Eosinophils (%) (Auto) 1.5 % Basophils (%) (Auto) 1.4 % Neutrophils # (Auto) 5.49 K/uL (1.4-6.5) Lymphocytes # (Auto) 2.77 K/uL (1.2-3.4) Monocytes # (Auto) 1.01 K/uL (0.11-0.59) Eosinophils # (Auto) 0.14 K/uL (0-0.5) Basophils # (Auto) 0.13 K/uL (0-0.2) RDW Standard Deviation 40.9 fL (36.4-46.3) RDW Coefficient of Variation 12.7 % (11.5-14.5) Immature Granulocyte % (Auto) 0.3 % Immature Granulocyte # (Auto) 0.03 K/uL (0.00-0.02) Anion Gap 12.0 mmol/L (3-11) Est Creatinine Clear Calc Drug Dose 75.3 ml/min Estimated GFR () 75.2 Estimated GFR (Non- 64.9 BUN/Creatinine Ratio 6.8 (10-20) Calcium Level 9.4 mg/dl (8.5-10.1) Total Bilirubin 0.7 mg/dl (0.2-1) Direct Bilirubin 0.2 mg/dl (0-0.2) Aspartate Amino Transf (AST/SGOT) 21 U/L (15-37) Alanine Aminotransferase (ALT/SGPT) 30 U/L (12-78) Alkaline Phosphatase 57 U/L (45-117) Total Creatine Kinase 95 U/L (39-308) Creatine Kinase MB 1.0 ng/ml (0.5-3.6) Creatine Kinase MB Ratio 1.1 (0-3.0) Troponin I < 0.015 ng/ml (0-0.045) Total Protein 7.1 gm/dl (6.4-8.2) Albumin 4.1 gm/dl (3.4-5.0) Lipase 261 U/L (73-393) Labs reviewed by ED physician. Medications Administered Medications (Trade) Dose Ordered Sig/Jorge Route Start Time Stop Time Status Last Admin Dose Admin Miscellaneous Medication (Gi Cocktail) 24 ml NOW STAT PO 11/08/16 18:40 11/08/16 18:43 DC 11/08/16 19:34 24 ML Famotidine (Pepcid Tab) 20 mg NOW STAT PO 11/08/16 18:40 11/08/16 18:43 DC 11/08/16 19:33 20 MG Sucralfate (Carafate Tab) 1 gm NOW STAT PO 11/08/16 18:40 11/08/16 18:43 DC 11/08/16 19:33 1 GM Sodium Chloride 1,000 ml @ 999 mls/hr Q1H1M STAT IV 11/08/16 18:40 11/08/16 19:40 DC 11/08/16 19:33 999 MLS/HR Ondansetron HCl (Zofran Inj) 4 mg NOW STAT IV 11/08/16 18:40 11/08/16 18:43 DC 11/08/16 19:33 4 MG Lidocaine HCl (Viscous Lidocaine 2% Soln) 20 ml STK-MED ONCE .ROUTE 11/08/16 19:28 11/08/16 19:29 DC 11/08/16 19:34 10 ML Al Hydroxide/Mg Hydroxide (Maalox Susp) 30 ml STK-MED ONCE .ROUTE 11/08/16 19:28 11/08/16 19:29 DC 11/08/16 19:34 30 ML Potassium Chloride (Klor-Con M10) 40 meq NOW STAT PO 11/08/16 20:12 11/08/16 20:13 DC 11/08/16 20:12 40 MEQ Metoclopramide HCl (Reglan Inj) 10 mg NOW STAT IV 11/08/16 20:44 11/08/16 20:45 DC 11/08/16 21:08 10 MG Potassium Chloride (Klor-Con M10) 40 meq NOW STAT PO 11/08/16 20:44 11/08/16 20:45 DC 11/08/16 21:31 40 MEQ ECG Indication: nausea Rate (beats per minute): 57 Rhythm: sinus bradycardia Findings: no acute ischemic change, no ectopy ED Course 1825: Past medical records reviewed. The patient was evaluated in room C10. A complete history and physical examination was performed. 1839: Zofran Inj 4mg IV, Sodium Chloride 1000 ml @ 999 mls/hr IV, Carafate Tab 1gm PO, Pepcid Tab 20mg PO, GI Cocktail 24ml PO. 2011: Potassium Chloride 40meq PO. 2043: Potassium Chloride 40meq PO, Reglan Inj 10mg IV. 2213: I reevaluated the patient. He notes that he got a scope done in 2009 and 2014 for very similar symptoms. 6: Upon reexamination the patient is doing well. I discussed results and treatment plan with the patient. He verbalizes agreement and understanding. The patient is ready for discharge. Medical Decision Differential diagnosis: Etiologies such as appendicitis, diverticulitis, PUD, biliary pathology, UTI, pancreatitis, obstruction, mesenteric ischemia, aortic pathology, infections, inflammatory bowel disease, renal colic, as well as others were entertained. This is a 61-year-old male who presents emergency department complaining of epigastric nausea. The patient has been seen twice in the emergency department over the past several days for hematuria as well as continued abdominal pain. He has a benign abdominal examination. Serial abdominal examinations were performed on the patient while he was in the emergency department and at no time the patient exhibited a surgical abdomen. In addition the patient was also given a GI cocktail Pepcid and Carafate with much improvement in his symptoms. The patient was sent for CAT scan abdomen and pelvis with contrast however he has a normal CBC normal renal profile normal liver profile normal lipase. In addition the patient also has a normal CAT scan of the abdomen and pelvis. Upon further talking with the patient he has had 2 episodes like this in the past that resulted in him being scoped. For this I recommended that the patient have a clear liquid diet as well as 5 mL some Maalox before every meal and at bedtime. I also recommended that the fall outpatient follow-up with Dr. mi his medical coding auditor. Patient was in agreement with the treatment plan. Medication Reconcilliation Current Medication List: was personally reviewed by me Blood Pressure Screening Patient's blood pressure: Elevated blood pressure Blood pressure disposition: Elevated BP felt to be situational Impression Primary Impression: Hypokalemia Additional Impression: Nausea Scribe Attestation The scribe's documentation has been prepared under my direction and personally reviewed by me in its entirety. I confirm that the note above accurately reflects all work, treatment, procedures, and medical decision making performed by me. Departure Information Dispostion Home / Self-Care Prescriptions Metoclopramide (Reglan) 10 Mg Tab 10 MG PO Q6H Y for Nausea, #6 TAB Prov: Juliocesar Perry MD 11/08/16 Referrals Chloe Flores C.R.N.P. (PCP) Forms HOME CARE DOCUMENTATION FORM, IMPORTANT VISIT INFORMATION Patient Instructions Diet Clear Liquid Dc, ED Nausea Vomiting, Hypokalemia Dc, My [facility] Additional Instructions Follow up with DR Mi's office Take 5 ml Maalox before every meal and at bedtime Clear liquid diet next 48 hours You have been examined and treated today on an emergency basis only. This is not a substitute for, or an effort to provide, complete comprehensive medical care. It is impossible to recognize and treat all injuries or illnesses in a single emergency department visit. It is therefore important that you follow up closely with Dr Flores. Call as soon as possible for an appointment. Thank you for your time and consideration. I look forward to speaking with you again soon. Please don't hesitate to call us if you have any questions. Problem Qualifiers
[2016-11-08] MEDS ORDERED: OPTIRAY 320 IV PRN (18:45)
[2016-11-08 18:56] VITALS: O2SAT 96
[2016-11-08] MEDS ORDERED: LIDOCAINE HCL 2% VISC SOLN 20 ML UDC ONE (19:28)
[2016-11-08] MEDS ORDERED: ALUMINUM/MAGNESIUM SUSP 30 ML UDC ONE (19:28)
--- NOTE | 2016-11-08 19:31 | DIAGNOSTIC IMAGING REPORT ---
CHEST ONE VIEW PORTABLE CLINICAL HISTORY: CHEST PAIN dyspnea COMPARISON STUDY: 05/19/2014 FINDINGS: The bones soft tissues and hemidiaphragms are normal. The cardiomediastinal silhouette is normal. The lungs are clear. The pulmonary vasculature is normal. IMPRESSION: Negative chest. The above report was generated using voice recognition software. It may contain grammatical, syntax or spelling errors. Electronically signed by: Eric Mendez M.D. 11/08/2016 7:29 PM Dictated Date/Time: 11/08/2016 7:29 PM
[2016-11-08 19:34] LABS: URINE APPEARANCE CLEAR (CLEAR); URINE BILIRUBIN NEG (NEG); URINE COLOR YELLOW; URINE NITRITE NEG (NEG); URINE PH 6.5 (4.5-7.5); URINE SPECIFIC GRAVITY 1.012 (1.000-1.030); UROBILINOGEN NEG (NEG); ZZUR CULT IF INDIC CLEAN CATCH NO
[2016-11-08 19:34] LABS: BASO % 1.4 %; BASO ABS # 0.13 K/uL (0-0.2); COMPLETE YES; EOS % 1.5 %; HEMATOCRIT 41.9 % (42-52); IG% 0.3 %; LYMPH % 28.9 %; LYMPH ABS # 2.77 K/uL (1.2-3.4); MEAN CELL VOLUME 89.5 fL (80-100); MEAN CORPUSCULAR HEMOGLOBIN 31.2 pg (25-34); MEAN CORPUSCULAR HGB CONC 34.8 g/dl (32-36); MEAN PLATELET VOLUME 10.6 fL (7.4-10.4); MONO % 10.6 %; NEUT % 57.3 %; PLATELET COUNT 273 K/uL (130-400); RED BLOOD COUNT 4.68 M/uL (4.7-6.1); WHITE BLOOD COUNT 9.57 K/uL (4.8-10.8)
[2016-11-08 20:02] LABS: ALT/SGPT 30 U/L (12-78); BLOOD UREA NITROGEN 8 mg/dl (7-18); BUN/CREATININE RATIO 6.8 (10-20); CALCIUM 9.4 mg/dl (8.5-10.1); CARBON DIOXIDE 23 mmol/L (21-32); CHLORIDE 106 mmol/L (98-107); GLUCOSE 82 mg/dl (70-99); SODIUM 141 mmol/L (136-145)
[2016-11-08 20:07] LABS: ALKALINE PHOSPHATASE 57 U/L (45-117); AST/SGOT 21 U/L (15-37); CKMB/CK RATIO 1.1 (0-3.0)
[2016-11-08] MEDS ORDERED: POTASSIUM CHLORIDE 10 MEQ TABCR PO STA ×2 (20:12→20:44)
[2016-11-08 20:24] LABS: MANUAL MICROSCOPIC REQUIRED? NO; REVIEW REQ? NO
[2016-11-08] MEDS ORDERED: METOCLOPRAMIDE HCL INJ 5 MG/ML 2 ML VIAL IV STA (20:44)
--- NOTE | 2016-11-08 21:31 | DIAGNOSTIC IMAGING REPORT ---
ABD/PELVIS IV AND ORAL CONT CT DOSE: 536.96 mGy.cm HISTORY: Pain Pt c/o diffuse abd pain, hx of diverticulitis TECHNIQUE: Multiaxial CT images of the abdomen and pelvis were performed following the use of intravenous and oral contrast. A dose lowering technique was utilized adhering to the principles of ALARA. COMPARISON STUDY: 11/05/2016 FINDINGS: Lung bases are clear. Patient status post cholecystectomy. Liver is uniform throughout. Spleen is unremarkable. Pancreas is within normal limits. There is nonobstructing right renal calcification. There is a small right renal cyst. There is no evidence for an obstructing urinary tract calculus. Mild bladder wall thickening. Findings of scattered colonic diverticulosis. There is no evidence for acute diverticulitis. Lipoma anterior to the right hip is unchanged. IMPRESSION: 1. Mild chronic colonic diverticulosis. Area 2. Mild fatty infiltration of liver. 3. No acute process the abdomen or pelvis. 4. Mild bladder wall thickening. The above report was generated using voice recognition software. It may contain grammatical, syntax or spelling errors. Electronically signed by: Eric Mendez M.D. 11/08/2016 9:30 PM Dictated Date/Time: 11/08/2016 9:25 PM
[2016-11-08 22:03] LABS: LYME DISEASE AB IGG NEG (NEG); LYME DISEASE AB IGM NEG (NEG)
[2016-11-08] MEDS ORDERED: METO-157 PO (22:23)
[2016-11-08 22:47] VITALS: BP 140/101; PULSE 65; O2SAT 97
[2016-11-12 17:33] LABS: EBV EARLY ANTIGEN AB <9.00 U/ML
== END 2016-11-08 22:48 | disposition home or self-care (01) ==
LOC: C.EDB 18:02 → C.EDC 22:48
DX: E87.6 Hypokalemia (principal); R11.0 Nausea; K57.92 Diverticulitis of intestine, part unspecified, without perforation or abscess without bleeding; F12.90 Cannabis use, unspecified, uncomplicated

== ENCOUNTER → 2016-11-15 | Day surgery (SDC) | payer OTHER ==
[~2016-11-15] VITALS: Ht 180.3 cm; Wt 90.0 kg
[~2016-11-15] MED LIST changes: +ATROPINE SULFATE 0.1 MG/ML 5ML SYR IV PRN; +EpHEDrine SULFATE INJ 50 MG/ML AMP IV PRN; +LIDOCAINE HCL 2% 2 ML VIAL (20MG/ML) ONE; +METO-157 PO; +PROPOFOL IV EMULSION 10 MG/ML 20 ML VIAL IV ONE
[2016-11-15 15:13] VITALS: Ht 180.3 cm; Wt 90.0 kg
--- NOTE | 2016-11-15 15:17 | Endo History and Physical ---
History & Physical Date of Service: Nov 15, 2016. Chief Complaint: Abdominal pain and weight loss Referring Physician: Chloe Flores History of Present Illness 61 yo CM who presents for EGD and Colonoscopy secondary to abdominal pain and weight loss. Past Medical History Atrial Fibrillation, Anxiety, Other Past Surgical History Hx Cardiac Surgery: No Hx Internal Defibrillator: No Hx Pacemaker: No Hx Abdominal Surgery: Yes (Colon resection, Appendectomy, colycystectomy, Rectal fissure surgery, hemm) Hx Post-Op Nausea and Vomiting: No Hx Cancer Surgery: No Hx Thoracic Surgery: No Hx Orthopedic: No Hx Urinary Tract Surgery: No Social History Smoking Status: Never Smoker Hx Substance Use: No Hx Alcohol Use: Yes (Occassionally) Allergies Coded Allergies: Latex1 -Allergic Contact Dermititis (Verified Allergy, Mild, REDNESS, 11/08) Current Medications Reported Home Medications Medications Dose Route/Sig Max Daily Dose Days Date Category Reglan (Metoclopramide HCl) 10 Mg Tab 10 Mg PO Q6H PRN 11/08/16 Rx Zofran (Ondansetron Hcl) 4 Mg Tab 1 Tab PO Q6H PRN 11/05/16 Rx Acidophilus (Lactobacillus) 1 Tab Tab 1 Tab PO DAILY 10/30/16 Reported Vitamin C (Ascorbic Acid) 500 Mg Tab 1 Tab PO DAILY 10/30/16 Reported Flagyl (Metronidazole) 250 Mg Tab 250 Mg PO BID PRN 10/30/16 Reported Amlodipine Besylate 5 Mg Tab 5 Mg PO DAILY PRN 10/30/16 Reported Phenergan (Promethazine HCl) 25 Mg Tab 25 Mg PO Q4H PRN 07/08/15 Reported Nexium (Esomeprazole Magnesium) 40 Mg Capcr 40 Mg PO DAILY 05/11/15 Reported Vitamin B-12 (Cyanocobalamin) 100 Mcg Tab 500 Mcg PO DAILY 05/11/15 Reported Cipro (Ciprofloxacin) 250 Mg Tab 500 Mg PO BID PRN 05/26/14 Reported Alprazolam 0.25 Mg Tab 0.25 Mg PO BID PRN 05/19/14 Reported Vital Signs Weight (Kilograms): 90 Height (Feet): 5 Height (Inches): 11 Physical Exam General Appearance: WD/WN, no apparent distress Respiratory/Chest: Auscultation: breath sounds normal Cardiovascular: Heart Auscultation: RRR Abdomen: Bowel Sounds: normal Inspection & Palpation: soft, non-distended, no tenderness, guarding & rebound Assessment and Plan Assessment: 61 yo CM who presents for EGD and Colonoscopy secondary to abdominal pain and weight loss. Plan: Proceed with colonoscopy.
--- NOTE | 2016-11-15 16:39 | Anesthesiology Progress Note ---
Anesthesia Post Op Note Date & Time Nov 15, 2016 at 16:39 Vital Signs Pain Intensity: 7 Vital Signs Past 12 Hours Date Time Temp Pulse Resp B/P (MAP) Pulse Ox O2 Delivery O2 Flow Rate FiO2 11/15/16 15:18 36.6 100 20 140/94 (109) 97 Room Air Notes Mental Status: alert / awake / arousable, participated in evaluation Pt Amnestic to Procedure: Yes Nausea / Vomiting: adequately controlled Pain: adequately controlled Airway Patency, RR, SpO2: stable & adequate BP & HR: stable & adequate Hydration State: stable & adequate Anesthetic Complications: no major complications apparent
--- NOTE | 2016-11-15 16:52 | GI REPORT ---
Procedure Date: 11/15/2016 3:55 PM Procedure: Upper GI endoscopy Indications: Generalized abdominal pain, Weight loss Medicines: Monitored Anesthesia Care Complications: No immediate complications. Estimated Blood Loss: Estimated blood loss: none. Procedure: Pre-Anesthesia Assessment: - Prior to the procedure, a History and Physical was performed, and patient medications and allergies were reviewed. The patient's tolerance of previous anesthesia was also reviewed. The risks and benefits of the procedure and the sedation options and risks were discussed with the patient. All questions were answered, and informed consent was obtained. Prior Anticoagulants: The patient has taken no previous anticoagulant or antiplatelet agents. ASA Grade Assessment: III - A patient with severe systemic disease. After reviewing the risks and benefits, the patient was deemed in satisfactory condition to undergo the procedure. After obtaining informed consent, the endoscope was passed under direct vision. Throughout the procedure, the patient's blood pressure, pulse, and oxygen saturations were monitored continuously. The On-site loaner was introduced through the mouth, and advanced to the second part of duodenum. The upper GI endoscopy was accomplished without difficulty. The patient tolerated the procedure well. Findings: The esophagus was normal. A small hiatus hernia was present. Biopsies were taken with a cold forceps in the gastric antrum for Helicobacter pylori testing. The examined duodenum was normal. Biopsies for histology were taken with a cold forceps for evaluation of celiac disease. Impression: - Normal esophagus. - Small hiatus hernia. - Normal examined duodenum. Biopsied. - Biopsies were taken with a cold forceps for Helicobacter pylori testing. Recommendation: - Resume previous diet. - Continue present medications. - Await pathology results. - Return to GI office as previously scheduled. Saqib Henao DO 11/15/2016 4:51:33 PM This report has been signed electronically. Note Initiated On: 11/15/2016 3:55 PM I attest to the content of the Intraoperative Record and orders documented therein, exceptions below
--- NOTE | 2016-11-15 16:59 | GI REPORT ---
Procedure Date: 11/15/2016 4:00 PM Procedure: Colonoscopy Indications: Generalized abdominal pain, Weight loss Medicines: Monitored Anesthesia Care Complications: No immediate complications. Estimated Blood Loss: Estimated blood loss: none. Procedure: Pre-Anesthesia Assessment: - Prior to the procedure, a History and Physical was performed, and patient medications and allergies were reviewed. The patient's tolerance of previous anesthesia was also reviewed. The risks and benefits of the procedure and the sedation options and risks were discussed with the patient. All questions were answered, and informed consent was obtained. Prior Anticoagulants: The patient has taken no previous anticoagulant or antiplatelet agents. ASA Grade Assessment: III - A patient with severe systemic disease. After reviewing the risks and benefits, the patient was deemed in satisfactory condition to undergo the procedure. After I obtained informed consent, the scope was passed under direct vision. Throughout the procedure, the patient's blood pressure, pulse, and oxygen saturations were monitored continuously. The scope was introduced through the anus and advanced to the terminal ileum. The colonoscopy was performed without difficulty. The patient tolerated the procedure well. The quality of the bowel preparation was good. The terminal ileum, ileocecal valve, appendiceal orifice, and rectum were photographed. Findings: Multiple small-mouthed diverticula were found in the sigmoid colon. Two sessile polyps were found in the rectum. The polyps were 3 to 7 mm in size. These polyps were removed with a hot snare. Resection and retrieval were complete. Non-bleeding internal hemorrhoids were found during retroflexion. The hemorrhoids were small. Several random biopsies were obtained with cold forceps for histology in the entire colon. Impression: - Diverticulosis in the sigmoid colon. - Two 3 to 7 mm polyps in the rectum, removed with a hot snare. Resected and retrieved. - Non-bleeding internal hemorrhoids. - Several random biopsies were obtained in the entire colon. Recommendation: - Resume previous diet. - Continue present medications. - Repeat colonoscopy for surveillance based on pathology results. - Return to primary care physician as previously scheduled. Saqib Henao DO 11/15/2016 4:58:26 PM This report has been signed electronically. Note Initiated On: 11/15/2016 4:00 PM I attest to the content of the Intraoperative Record and orders documented therein, exceptions below
[2016-11-15 17:09] VITALS: BP 131/96; PULSE 84; O2SAT 99
--- NOTE | 2016-11-15 17:11 | Discharge Instructions ---
Endoscopy Patient Instructions Date / Procedure(s) Performed Nov 15, 2016. Colonoscopy, EGD Allergy Information Coded Allergies: Latex1 -Allergic Contact Dermititis (Verified Allergy, Mild, REDNESS, 11/08) Discharge Date / Findings Nov 15, 2016. EGD: Biopsies of stomach, Biopsies of Duodenum, Hiatal hernia Colonoscopy: Colon polyps, Diverticulosis, Internal hemorrhoids, and Random colon biopsies Medication Instructions OK to resume all medications today as prescribed Reported Home Medications Medications Dose Route/Sig Max Daily Dose Days Date Category Reglan (Metoclopramide HCl) 10 Mg Tab 10 Mg PO Q6H PRN 11/08/16 Rx Zofran (Ondansetron Hcl) 4 Mg Tab 1 Tab PO Q6H PRN 11/05/16 Rx Acidophilus (Lactobacillus) 1 Tab Tab 1 Tab PO DAILY 10/30/16 Reported Vitamin C (Ascorbic Acid) 500 Mg Tab 1 Tab PO DAILY 10/30/16 Reported Flagyl (Metronidazole) 250 Mg Tab 250 Mg PO BID PRN 10/30/16 Reported Amlodipine Besylate 5 Mg Tab 5 Mg PO DAILY PRN 10/30/16 Reported Phenergan (Promethazine HCl) 25 Mg Tab 25 Mg PO Q4H PRN 07/08/15 Reported Nexium (Esomeprazole Magnesium) 40 Mg Capcr 40 Mg PO DAILY 05/11/15 Reported Vitamin B-12 (Cyanocobalamin) 100 Mcg Tab 500 Mcg PO DAILY 05/11/15 Reported Cipro (Ciprofloxacin) 250 Mg Tab 500 Mg PO BID PRN 05/26/14 Reported Alprazolam 0.25 Mg Tab 0.25 Mg PO BID PRN 05/19/14 Reported Provider Instructions Activity Restrictions - No exercising or heavy lifting for 24 hours. - Do not drink alcohol the day of the procedure. - Do not drive a car or operate machinery until the day after the procedure. - Do not make any important decisions or sign important papers in 24 hours after the procedure. Following Day: - Return to full activity which may include returning to work/school. Diet Start your diet with liquids and light foods (jello, soup, juice, toast). Then eat your usual diet if not nauseated. Treatment For Common After Affects For mild abdominal pain, bloating, or excessive gas: - Rest - Eat lightly - Lie on right side Follow-Up Information Follow-up with Chloe COATES as scheduled Anesthesia Information What You Should Know You have had a procedure that required some medicine to reduce anxiety and discomfort. This treatment is called moderate sedation. After receiving the treatment, you may be sleepy, but you will be able to breathe on your own. The effects of the treatment may last for several hours. Follow these instructions along with Activity/Diet recommendations noted above: * Do NOT do anything where dizziness or clumsiness would be dangerous. * Rest quietly at home today, then you can be up and about tomorrow. * Have a responsible person stay with you the rest of today. * You may have had an I.V. today. If so, you may take the dressing off later today. Recommendations Call your doctor if: * Trouble breathing * Continuous vomiting for more than 24 hours * Temperature above 101 degrees * Severe abdominal pain or bloating * Pain not relieved by pain medicine ordered * There is increased drainage or redness from any incision * A large amount of rectal bleeding greater than 2-3 tablespoons. (If you had a polyp/s removed or have hemorrhoids, a small amount of blood - from the rectum is to be expected.) * You have any unanswered questions or concerns. IN THE EVENT OF A SERIOUS EMERGENCY, GO TO THE NEAREST EMERGENCY ROOM Your discharge instructions were prepared by provider Saqib Henao. Patient Instructions Signature Page Eric Scanlon Patient (or Guardian) Signature/Date: I have read and understand the instructions given to me by my caregivers. Caregiver/RN/Doctor Signature/Date: The above-named patient and/or guardian has received patient instructions on this date. + Original Patient Signature Page (only) stays with chart. Please make copy for patient.
== END | disposition home or self-care (01) ==
LOC: C.GI 14:51
PROVIDERS: ATTEND Internal Medicine
DX: D12.8 Benign neoplasm of rectum (principal); K57.30 Diverticulosis of large intestine without perforation or abscess without bleeding; K64.8 Other hemorrhoids; K44.9 Diaphragmatic hernia without obstruction or gangrene; R63.4 Abnormal weight loss; R10.84 Generalized abdominal pain; I48.91 Unspecified atrial fibrillation; F41.9 Anxiety disorder, unspecified; Z79.899 Other long term (current) drug therapy

== ENCOUNTER → 2017-03-21 | Outpatient (CLI) | payer OTHER ==
[~2017-03-21] MED LIST changes: -ATROPINE SULFATE 0.1 MG/ML 5ML SYR IV PRN; -EpHEDrine SULFATE INJ 50 MG/ML AMP IV PRN; -LIDOCAINE HCL 2% 2 ML VIAL (20MG/ML) ONE; -ONDA4TAB65 PO; -PROPOFOL IV EMULSION 10 MG/ML 20 ML VIAL IV ONE
--- NOTE | 2017-03-21 12:59 | DIAGNOSTIC IMAGING REPORT ---
GASTRIC EMPTYING HISTORY: Nausea. Bloating. R11.0 [id number] COMPARISON: None. TECHNIQUE: Following the oral administration of 1.1 mCi of technetium 99m sulfur colloid in egg sandwich and 8 ounces of water, static abdominal images are obtained anteriorly and posteriorly at 0 minutes, 1 hour, 2 hour, and 4 hour time intervals. Gastric emptying was calculated utilizing the geometric mean method. FINDINGS: There is approximately 55 % activity remaining at the 1 hour time interval (normal is less than 90%), 3 % remaining at the 2 hour time interval (normal is less than 60%), and 0 % activity remaining at the 4 hour time interval (normal is less than 10%). IMPRESSION: No evidence for delayed gastric emptying. Normal study The above report was generated using voice recognition software. It may contain grammatical, syntax or spelling errors. Electronically signed by: Eric Mendez M.D. 03/21/2017 12:58 PM Dictated Date/Time: 03/21/2017 12:57 PM
== END | disposition home or self-care (01) ==
LOC: C.NUCL 08:05
PROVIDERS: ATTEND Registered Nurse
DX: R11.0 Nausea (principal)

== ENCOUNTER → 2017-04-17 | Outpatient (CLI) | payer OTHER ==
[2017-04-17 12:36] LABS: BASO % 2.1 %; BASO ABS # 0.14 K/uL (0-0.2); EOS % 2.5 %; EOS ABS # 0.17 K/uL (0-0.5); HEMATOCRIT 40.9 % (42-52); HEMOGLOBIN 13.8 g/dL (14.0-18.0); IG# 0.02 K/uL (0.00-0.02); LYMPH % 22.7 %; LYMPH ABS # 1.54 K/uL (1.2-3.4); MEAN CELL VOLUME 93.2 fL (80-100); MEAN CORPUSCULAR HEMOGLOBIN 31.4 pg (25-34); MEAN CORPUSCULAR HGB CONC 33.7 g/dl (32-36); MEAN PLATELET VOLUME 10.7 fL (7.4-10.4); MONO % 11.5 %; MONO ABS # 0.78 K/uL (0.11-0.59); NEUT % 60.9 %; NEUT ABS # 4.12 K/uL (1.4-6.5); PLATELET COUNT 258 K/uL (130-400); RED CELL DISTRIBUTION WIDTH CV 13.4 % (11.5-14.5); RED CELL DISTRIBUTION WIDTH SD 45.9 fL (36.4-46.3); WHITE BLOOD COUNT 6.77 K/uL (4.8-10.8)
[2017-04-17 14:48] LABS: BLOOD UREA NITROGEN 13 mg/dl (7-18); CARBON DIOXIDE 29 mmol/L (21-32); GLUCOSE 83 mg/dl (70-99); POTASSIUM 4.2 mmol/L (3.5-5.1); SODIUM 141 mmol/L (136-145)
[2017-04-17 14:49] LABS: TRANSFERRIN 245 mg/dl (200-360)
== END | disposition home or self-care (01) ==
LOC: C.LABMFLN 09:02
PROVIDERS: ATTEND Family Medicine
DX: D64.9 Anemia, unspecified (principal); I10 Essential (primary) hypertension

== ENCOUNTER → 2017-04-23 | Outpatient (CLI) | payer OTHER ==
[~2017-04-23] MED LIST changes: +GADAVIST IV PRN
--- NOTE | 2017-04-23 09:11 | DIAGNOSTIC IMAGING REPORT ---
BRAIN COMBO HISTORY: 62 years-old Male R11.0 [id number] Hypertension. Chronic nodular with hypertension COMPARISON: None available TECHNIQUE: Multiplanar multisequence MRI of the brain was obtained both with and without the use of 9.5 mL Gadavist FINDINGS: The large boeyl-bi-uhip cyber threat analyst localizer images demonstrate no gross abnormality. The midline structures including the corpus callosum, brainstem, optic chiasm, infundibulum, pituitary and pineal glands are unremarkable on the sagittal T1 series. 13 mm T1 and T2 hyperintense lesion of the frontal calvarium at the midline as seen on image 12 series 3 suggests an arachnoid granulation. There is no evidence of restricted diffusion to suggest acute infarction. There are a few scattered punctate nonspecific foci of T2/FLAIR prolongation within the subcortical white matter of the cerebral hemispheres bilaterally, notably within the frontal and parietal lobes suggesting sequela of chronic microvascular ischemic changes. No acute intracranial hemorrhage, midline shift, abnormal extra-axial collections, hydrocephalus or intracranial mass. There is no abnormal intra-axial or extra-axial enhancement identified. The major flow voids at the level of the skull base appear to be patent. Orbits are symmetric and within normal limits. Mild ethmoid sinus disease. Mastoid air cells are clear. Scalp and soft tissues are within normal limits. IMPRESSION: 1. No acute intracranial abnormality identified. No abnormal enhancement. 2. Probable mild chronic microvascular ischemic changes. 3. Mild ethmoid sinus disease. The above report was generated using voice recognition software. It may contain grammatical, syntax or spelling errors. Electronically signed by: Asif Moreira M.D. 04/23/2017 9:09 AM Dictated Date/Time: 04/23/2017 8:55 AM
== END | disposition home or self-care (01) ==
LOC: C.MRI 08:00
PROVIDERS: ATTEND Family Medicine
DX: I10 Essential (primary) hypertension (principal); R11.0 Nausea; J32.2 Chronic ethmoidal sinusitis

== ENCOUNTER 2017-05-10 09:17 | Emergency (ER) | payer OTHER ==
[~2017-05-10] VITALS: Ht 180.3 cm; Wt 89.4 kg
[~2017-05-10 09:17] MED LIST changes: -GADAVIST IV PRN
[2017-05-10 09:20] VITALS: TEMP 36.5; Ht 180.3 cm; Wt 89.4 kg
[2017-05-10] MEDS ORDERED: SODIUM CHLORIDE 0.9% 1000ML 2,000 ML IV STA (09:55)
[2017-05-10] MEDS ORDERED: GUAIFENESIN 600 MG TABCR PO STA (09:55)
[2017-05-10] MEDS ORDERED: METOCLOPRAMIDE HCL INJ 5 MG/ML 2 ML VIAL IV STA (09:55)
[2017-05-10] MEDS ORDERED: FAMOTIDINE 20 MG TAB PO ONE (10:15)
[2017-05-10 10:27] LABS: BASO % 1.7 %; BASO ABS # 0.13 K/uL (0-0.2); EOS % 1.2 %; EOS ABS # 0.09 K/uL (0-0.5); HEMOGLOBIN 15.8 g/dL (14.0-18.0); IG# 0.01 K/uL (0.00-0.02); LYMPH % 20.6 %; LYMPH ABS # 1.61 K/uL (1.2-3.4); MEAN CELL VOLUME 90.1 fL (80-100); MEAN CORPUSCULAR HEMOGLOBIN 33.1 pg (25-34); MEAN CORPUSCULAR HGB CONC 36.7 g/dl (32-36); MEAN PLATELET VOLUME 10.5 fL (7.4-10.4); MONO % 9.5 %; MONO ABS # 0.74 K/uL (0.11-0.59); NEUT % 66.9 %; NEUT ABS # 5.23 K/uL (1.4-6.5); PLATELET COUNT 269 K/uL (130-400); RED CELL DISTRIBUTION WIDTH CV 12.8 % (11.5-14.5); RED CELL DISTRIBUTION WIDTH SD 41.9 fL (36.4-46.3); WHITE BLOOD COUNT 7.81 K/uL (4.8-10.8)
--- NOTE | 2017-05-10 10:43 | EMERGENCY ROOM VISIT NOTE ---
History Report prepared by Hannah: Yessenia Velasquez Under the Supervision of: Dr. Issac Bolden M.D. First contact with patient: 09:50 Chief Complaint: NAUSEA Stated Complaint: NAUSEA HEADACHE Nursing Triage Summary: Nausea and headaches. Runny stools. Takes xanax at night to help with sleeping and nausea. History of Present Illness The patient is a 62 year old male who presents to the Emergency Room with complaints of constant nausea starting several months ago. The patient has been through testing which has all been negative. He does not have gastroparesis and a recent brain MRI was not concerning for stroke. The patient was started on Augmentin for a sinus infection recently. He stopped taking the Augmentin because it was making him more nauseous. He has had some central headaches for which he has been taking Tylenol. His stools have been loose. He has had some blood at the end of his stools which he attributes to his hemorrhoids. He has been unable to eat well and has lost some weight. He denies any fever. He notes that he takes Xanax at night to help him sleep. He takes Nexium in the morning which does not help his symptoms. He does not smoke or drink. He has not been taking decongestants. He has a history of appendectomy, cholecystectomy, and colon resection for diverticulitis. Source of History: patient Onset: several months ago Position: other (constitutional) Quality: other (nausea) Timing: constant Associated Symptoms: + headache, No fevers Note: Pt reports loose stool. Review of Systems See HPI for pertinent positives and negatives. A total of ten systems were reviewed and were otherwise negative. Past Medical & Surgical Medical Problems: (1) Diverticulitis (2) Hemorrhoids (3) Rectal fissure Surgical Problems: (1) History of bowel resection (2) S/P appendectomy (3) S/P cholecystectomy Family History Cancer Kidney disease Social History Smoking Status: Never Smoker Alcohol Use: none Marital Status: Housing Status: lives with significant other Occupation Status: disabled Current/Historical Medications Scheduled Amlodipine Besylate (Amlodipine Besylate), 5 MG PO DAILY Ascorbic Acid (Vitamin C), 1 TAB PO DAILY Cyanocobalamin (Vitamin B-12), 500 MCG PO DAILY Esomeprazole Magnesium (Nexium), 40 MG PO DAILY Lactobacillus (Acidophilus), 1 TAB PO DAILY Scheduled PRN Alprazolam (Alprazolam), 0.25 MG PO BID PRN for Anxiety Ciprofloxacin Tab (Cipro), 500 MG PO BID PRN for GI Upset Metronidazole (Flagyl), 250 MG PO BID PRN for GI Upset Promethazine Hcl (Phenergan), 25 MG PO Q4H PRN for Nausea Allergies Coded Allergies: Latex1 -Allergic Contact Dermititis (Verified Allergy, Mild, REDNESS, 05/10) Physical Exam Vital Signs Date Time Temp Pulse Resp B/P (MAP) Pulse Ox O2 Delivery O2 Flow Rate FiO2 05/10/17 13:17 72 20 132/72 98 05/10/17 12:15 74 16 140/84 96 Room Air 05/10/17 09:20 36.5 89 17 156/93 98 Room Air Physical Exam GENERAL: Awake, alert, fatigued-appearing but otherwise well appearing, in no distress HENT: Normocephalic, atraumatic. Dry mucous membranes. EYES: Normal conjunctiva. Sclera non-icteric. NECK: Supple. No nuchal rigidity. FROM. No JVD. RESPIRATORY: Clear to auscultation. CARDIAC: Regular rate, normal rhythm. Extremities warm and well perfused. Pulses equal. ABDOMEN: Soft, non-distended. No tenderness to palpation. No rebound or guarding. No masses. RECTAL: Deferred. MUSCULOSKELETAL: Chest examination reveals no tenderness. The back is symmetrical on inspection without obvious abnormality. There is no CVA tenderness to palpation. No joint edema. LOWER EXTREMITIES: Calves are equal size bilaterally and non-tender. No edema. No discoloration. NEURO: Normal sensorium. No sensory or motor deficits noted. SKIN: No rash or jaundice noted. Medical Decision & Procedures ER Provider Diagnostic Interpretation: Radiology results as stated below per my review and radiologist interpretation: CHEST ONE VIEW PORTABLE CLINICAL HISTORY: Abdominal pain. Nausea. COMPARISON STUDY: Chest radiograph November 09, 2015. FINDINGS: Lung volumes are normal. No pneumothorax or pleural effusion is noted. There is no consolidation or evidence for pulmonary edema. Cardiomediastinal silhouette is unremarkable. IMPRESSION: No acute cardiopulmonary findings. Electronically signed by: Oscar Alberts M.D. 05/10/2017 10:46 AM Dictated Date/Time: 05/10/2017 10:45 AM Laboratory Results 05/10/17 10:15 Red Blood Count 4.77, Mean Corpuscular Volume 90.1, Mean Corpuscular Hemoglobin 33.1, Mean Corpuscular Hemoglobin Concent 36.7, Mean Platelet Volume 10.5, Neutrophils (%) (Auto) 66.9, Lymphocytes (%) (Auto) 20.6, Monocytes (%) (Auto) 9.5, Eosinophils (%) (Auto) 1.2, Basophils (%) (Auto) 1.7, Neutrophils # (Auto) 5.23, Lymphocytes # (Auto) 1.61, Monocytes # (Auto) 0.74, Eosinophils # (Auto) 0.09, Basophils # (Auto) 0.13 05/10/17 10:15 Test 05/10/17 10:15 05/10/17 11:00 White Blood Count 7.81 K/uL (4.8-10.8) Red Blood Count 4.77 M/uL (4.7-6.1) Hemoglobin 15.8 g/dL (14.0-18.0) Hematocrit 43.0 % (42-52) Mean Corpuscular Volume 90.1 fL (80-100) Mean Corpuscular Hemoglobin 33.1 pg (25-34) Mean Corpuscular Hemoglobin Concent 36.7 g/dl (32-36) Platelet Count 269 K/uL (130-400) Mean Platelet Volume 10.5 fL (7.4-10.4) Neutrophils (%) (Auto) 66.9 % Lymphocytes (%) (Auto) 20.6 % Monocytes (%) (Auto) 9.5 % Eosinophils (%) (Auto) 1.2 % Basophils (%) (Auto) 1.7 % Neutrophils # (Auto) 5.23 K/uL (1.4-6.5) Lymphocytes # (Auto) 1.61 K/uL (1.2-3.4) Monocytes # (Auto) 0.74 K/uL (0.11-0.59) Eosinophils # (Auto) 0.09 K/uL (0-0.5) Basophils # (Auto) 0.13 K/uL (0-0.2) RDW Standard Deviation 41.9 fL (36.4-46.3) RDW Coefficient of Variation 12.8 % (11.5-14.5) Immature Granulocyte % (Auto) 0.1 % Immature Granulocyte # (Auto) 0.01 K/uL (0.00-0.02) Anion Gap 7.0 mmol/L (3-11) Est Creatinine Clear Calc Drug Dose 57.8 ml/min Estimated GFR () 61.4 Estimated GFR (Non- 53.0 BUN/Creatinine Ratio 7.7 (10-20) Calcium Level 9.3 mg/dl (8.5-10.1) Magnesium Level 2.1 mg/dl (1.8-2.4) Total Bilirubin 0.8 mg/dl (0.2-1) Direct Bilirubin 0.2 mg/dl (0-0.2) Aspartate Amino Transf (AST/SGOT) 13 U/L (15-37) Alanine Aminotransferase (ALT/SGPT) 22 U/L (12-78) Alkaline Phosphatase 73 U/L (45-117) Total Protein 7.7 gm/dl (6.4-8.2) Albumin 4.3 gm/dl (3.4-5.0) Lipase 203 U/L (73-393) Urine Color YELLOW Urine Appearance CLEAR (CLEAR) Urine pH 7.0 (4.5-7.5) Urine Specific [place] 1.006 (1.000-1.030) Urine Protein NEG (NEG) Urine Glucose (UA) NEG (NEG) Urine Ketones NEG (NEG) Urine Occult Blood NEG (NEG) Urine Nitrite NEG (NEG) Urine Bilirubin NEG (NEG) Urine Urobilinogen NEG (NEG) Urine Leukocyte Esterase NEG (NEG) Influenza Type A Antigen Neg for Influ A (NEG) Influenza Type B Antigen Neg for Influ B (NEG) Laboratory results reviewed by me Medications Administered Medications (Trade) Dose Ordered Sig/Jorge Route Start Time Stop Time Status Last Admin Dose Admin Sodium Chloride 2,000 ml @ 999 mls/hr Q2H1M STAT IV 05/10/17 09:55 05/10/17 11:55 DC 05/10/17 10:30 999 MLS/HR Metoclopramide HCl (Reglan Inj) 10 mg NOW STAT IV 05/10/17 09:55 05/10/17 10:02 DC 05/10/17 10:30 10 MG Guaifenesin (Mucinex Contr Rel Tab) 600 mg NOW STAT PO 05/10/17 09:55 05/10/17 10:02 DC 05/10/17 10:30 600 MG Famotidine (Pepcid Tab) 20 mg NOW ONCE PO 05/10/17 10:15 05/10/17 10:16 DC 05/10/17 10:30 20 MG ECG Per My Interpretation Indication: nausea Rate (beats per minute): 67 Rhythm: normal sinus Findings: no acute ischemic change, left axis deviation ED Course 0953: The patient was evaluated in room B12B. A complete history and physical exam was performed. 1234: I reevaluated the patient. Discussed results and discharge instructions: He verbalized understanding and agreement. The patient is ready for discharge. Medical Decision I reviewed the patient's past medical history, medications, and the nursing notes as described above. Differential diagnosis: Etiologies such as appendicitis, diverticulitis, PUD, biliary pathology, UTI, pancreatitis, obstruction, mesenteric ischemia, aortic pathology, infections, inflammatory bowel disease, renal colic, as well as others were entertained. The patient is a 62-year-old gentleman with a long-standing history over the past 6 months of persistent nausea of unclear etiology status post numerous to diagnostic testing including gastric emptying study followed by GI who presents emergency department with a persistence of his nausea per hpi. Arrival the patient is fatigued appearing but otherwise well-appearing, no acute distress, afebrile stable vital signs. Abdomen soft nontender nondistended. Cr 1.4 up from 1.2 c/w mild dehydration. Labs otherwise unremarkable. Patient feeling improved after IVF, Reglan, and Pepcid although still with mild residual nausea. Given that this has been ongoing for the past 6 months with multiple negative w/us unlikely to have emergent process at this time. Findings and plan for follow-up reviewed with patient. Patient agreeable and d/c'd per discharge instructions. Medication Reconcilliation Current Medication List: was personally reviewed by me Blood Pressure Screening Patient's blood pressure: Elevated blood pressure Blood pressure disposition: Elevated BP felt to be situational Impression Primary Impression: Nausea Additional Impression: Dehydration Scribe Attestation The scribe's documentation has been prepared under my direction and personally reviewed by me in its entirety. I confirm that the note above accurately reflects all work, treatment, procedures, and medical decision making performed by me. Departure Information Dispostion Home / Self-Care Referrals Fuad Mace M.D. (PCP) Patient Instructions ED Dehydration, ED Nausea Vomiting, My [facility] Additional Instructions Please follow up with your primary care physician in the next 1-3 days for re- evaluation. The cause of your chronic nausea continues to be unclear at this time. Your also found to be slightly dehydrated. Otherwise, your exam, EKG, chest xray, and lab results did not show signs of an emergent condition at this time. Continue your current medications. [place] of Nexium twice daily per your doctors recommendations. Drink plenty of fluids to ensure hydration. Return to the emergency department for worsening symptoms as described in the accompanying instructions. Problem Qualifiers
[2017-05-10 10:44] LABS: ALBUMIN 4.3 gm/dl (3.4-5.0); CALCIUM 9.3 mg/dl (8.5-10.1); CREATININE 1.41 mg/dl (0.60-1.40); POTASSIUM 3.9 mmol/L (3.5-5.1)
[2017-05-10 10:46] LABS: TOTAL PROTEIN 7.7 gm/dl (6.4-8.2)
--- NOTE | 2017-05-10 10:47 | DIAGNOSTIC IMAGING REPORT ---
CHEST ONE VIEW PORTABLE CLINICAL HISTORY: Abdominal pain. Nausea. COMPARISON STUDY: Chest radiograph November 09, 2015. FINDINGS: Lung volumes are normal. No pneumothorax or pleural effusion is noted. There is no consolidation or evidence for pulmonary edema. Cardiomediastinal silhouette is unremarkable. IMPRESSION: No acute cardiopulmonary findings. Electronically signed by: Oscar Alberts M.D. 05/10/2017 10:46 AM Dictated Date/Time: 05/10/2017 10:45 AM
[2017-05-10 11:43] LABS: INFLUENZA B ANTIGEN Neg for Influ B (NEG)
[2017-05-10 13:17] VITALS: BP 132/72; PULSE 72; O2SAT 98
== END 2017-05-10 13:20 | disposition home or self-care (01) ==
LOC: C.EDB 09:18
DX: R11.0 Nausea (principal); E86.0 Dehydration; Z90.49 Acquired absence of other specified parts of digestive tract; Z87.19 Personal history of other diseases of the digestive system; Z84.1 Family history of disorders of kidney and ureter; Z91.040 Latex allergy status

== ENCOUNTER 2017-05-23 09:52 | Emergency (ER) | payer OTHER ==
[~2017-05-23] VITALS: Ht 177.8 cm; Wt 87.5 kg
[~2017-05-23 09:52] MED LIST changes: -METO-157 PO
[2017-05-23 09:59] VITALS: TEMP 36.6; Ht 177.8 cm; Wt 87.5 kg
--- NOTE | 2017-05-23 10:30 | EMERGENCY ROOM VISIT NOTE ---
History Report prepared by Hannah: Ag Blas Under the Supervision of: Dr. Rain Robbins D.O. First contact with patient: 10:15 Chief Complaint: NAUSEA Stated Complaint: NAUSEA, BLOODY STOOLS History of Present Illness The patient is a 62 year old male with a history of diverticulitis and a colon resection who presents to the Emergency Room with complaints of persistent nausea that started 6 months ago. He states that the nausea has pretty much been constant, but may "loosen up a bit" with his Phenergan. The patient notes that he has been here "so many times" for this, and has been seeing many specialists. The patient states that he has "every test possible", and had an MRI of his brain recently. He says that he was told that he may have problems with acute sinusitis, so he has an appointment to see a specialist for that. He adds that he has been seen by Dr. Henao of gastroenterology, and has had all the gastric testing done. The patient says that he had an endoscopy done a couple months ago which was negative. He states that he has been starting to get some headaches recently, which is new. The patient says he has been trying many medications, including Pantoprazole and acid reducers, with no relief. He adds that he has had to take Xanax to sleep but it has not been working as well as usual, so he was prescribed Ambien 2 days ago, which has made him more nauseous. The patient says that for the past 3 days, his stools have been loose. He states that it has been bloody "at the end", and there has been blood on the toilet paper after he wipe. He notes a history of hemorrhoids, and thinks that is what he has been having. He notes no notable family history of gastric issues. Pt seen here last week and had nml labs and xrays. Pt with multiple prior CT's. Source of History: patient, spouse/significant other Onset: 6 months ago Position: other (global) Symptom Intensity: has had "every test possible", all have been negative Quality: other (nausea) Timing: constant, other (persistent) Associated Symptoms: + headache Note: Associated symptoms: Loose stools. Blood at end of bowel movements. Review of Systems See HPI for pertinent positives & negatives. A total of 10 systems reviewed and were otherwise negative. Past Medical & Surgical Medical Problems: (1) Diverticulitis (2) Hemorrhoids (3) Rectal fissure Surgical Problems: (1) History of bowel resection (2) S/P appendectomy (3) S/P cholecystectomy Family History Cancer Kidney disease Social History Smoking Status: Never Smoker Alcohol Use: none Marital Status: Housing Status: lives with significant other Occupation Status: disabled Current/Historical Medications Scheduled Alprazolam (Xanax), 0.5 MG PO DAILY Amlodipine Besylate (Amlodipine Besylate), 5 MG PO DAILY Ascorbic Acid (Vitamin C), 1 TAB PO DAILY Cyanocobalamin (Vitamin B-12), 500 MCG PO DAILY Lactobacillus (Acidophilus), 1 TAB PO DAILY Zolpidem Tartrate (Zolpidem Tartrate), 5 MG PO HS Scheduled PRN Ciprofloxacin Tab (Cipro), 500 MG PO BID PRN for GI Upset Metronidazole (Flagyl), 250 MG PO BID PRN for GI Upset Promethazine Hcl (Phenergan), 25 MG PO Q4H PRN for Nausea Allergies Coded Allergies: Latex1 -Allergic Contact Dermititis (Verified Allergy, Mild, REDNESS, 05/10) Physical Exam Vital Signs Date Time Temp Pulse Resp B/P (MAP) Pulse Ox O2 Delivery O2 Flow Rate FiO2 05/23/17 11:55 64 20 120/74 98 05/23/17 09:59 36.6 74 20 134/88 100 Room Air Physical Exam GENERAL: alert, anxious appearing, well nourished, no distress, non-toxic EYE EXAM: normal conjunctiva, PERRL and EOM's grossly intact OROPHARYNX: no exudate, no erythema, lips, buccal mucosa, and tongue normal and mucous membranes are moist NECK: supple, no nuchal rigidity, no adenopathy, non-tender LUNGS: Clear to auscultation. Normal chest wall mechanics HEART: no murmurs, S1 normal and S2 normal ABDOMEN: abdomen soft, some mild central abdominal tenderness, normo-active bowel sounds, no masses, no rebound or guarding. BACK: Back is symmetrical on inspection and there is no deformity, no midline tenderness, no CVA tenderness. SKIN: no rashes and no bruising UPPER EXTREMITIES: upper extremities are grossly normal. LOWER EXTREMITIES: No pitting edema. RECTAL: Hemorrhoids on exam. Guaiac negative. No obvious bleeding. No anal fissure. NEURO EXAM: Normal sensorium, cranial nerves II-XII grossly intact, normal speech, no gross weakness of arms, no gross weakness of legs. Medical Decision & Procedures Laboratory Results 05/23/17 10:45 Red Blood Count 4.73, Mean Corpuscular Volume 90.3, Mean Corpuscular Hemoglobin 31.7, Mean Corpuscular Hemoglobin Concent 35.1, Mean Platelet Volume 10.3, Neutrophils (%) (Auto) 56.8, Lymphocytes (%) (Auto) 26.2, Monocytes (%) (Auto) 13.4, Eosinophils (%) (Auto) 1.7, Basophils (%) (Auto) 1.7, Neutrophils # (Auto ) 3.27, Lymphocytes # (Auto) 1.51, Monocytes # (Auto) 0.77, Eosinophils # (Auto ) 0.10, Basophils # (Auto) 0.10 05/23/17 10:45 Test 05/23/17 10:45 05/23/17 10:55 White Blood Count 5.76 K/uL (4.8-10.8) Red Blood Count 4.73 M/uL (4.7-6.1) Hemoglobin 15.0 g/dL (14.0-18.0) Hematocrit 42.7 % (42-52) Mean Corpuscular Volume 90.3 fL (80-100) Mean Corpuscular Hemoglobin 31.7 pg (25-34) Mean Corpuscular Hemoglobin Concent 35.1 g/dl (32-36) Platelet Count 250 K/uL (130-400) Mean Platelet Volume 10.3 fL (7.4-10.4) Neutrophils (%) (Auto) 56.8 % Lymphocytes (%) (Auto) 26.2 % Monocytes (%) (Auto) 13.4 % Eosinophils (%) (Auto) 1.7 % Basophils (%) (Auto) 1.7 % Neutrophils # (Auto) 3.27 K/uL (1.4-6.5) Lymphocytes # (Auto) 1.51 K/uL (1.2-3.4) Monocytes # (Auto) 0.77 K/uL (0.11-0.59) Eosinophils # (Auto) 0.10 K/uL (0-0.5) Basophils # (Auto) 0.10 K/uL (0-0.2) RDW Standard Deviation 42.9 fL (36.4-46.3) RDW Coefficient of Variation 13.0 % (11.5-14.5) Immature Granulocyte % (Auto) 0.2 % Immature Granulocyte # (Auto) 0.01 K/uL (0.00-0.02) Prothrombin Time 10.7 SECONDS (9.0-12.0) Prothromb Time International Ratio 1.0 (0.9-1.1) Anion Gap 7.0 mmol/L (3-11) Est Creatinine Clear Calc Drug Dose 62.8 ml/min Estimated GFR () 70.4 Estimated GFR (Non- 60.7 BUN/Creatinine Ratio 7.4 (10-20) Calcium Level 9.1 mg/dl (8.5-10.1) Magnesium Level 2.3 mg/dl (1.8-2.4) Total Bilirubin 0.9 mg/dl (0.2-1) Aspartate Amino Transf (AST/SGOT) 13 U/L (15-37) Alanine Aminotransferase (ALT/SGPT) 23 U/L (12-78) Alkaline Phosphatase 67 U/L (45-117) Troponin I < 0.015 ng/ml (0-0.045) Total Protein 7.3 gm/dl (6.4-8.2) Albumin 4.1 gm/dl (3.4-5.0) Globulin 3.2 gm/dl (2.5-4.0) Albumin/Globulin Ratio 1.3 (0.9-2) Lipase 270 U/L (73-393) Lactic Acid Level 1.5 mmol/L (0.4-2.0) Laboratory results per my review. ECG Per My Interpretation Indication: nausea Rate (beats per minute): 67 Rhythm: normal sinus Findings: RBBB (appearance of), no acute ischemic change, left axis deviation ED Course 1017: The patient was evaluated in room C11B. A complete history and physical exam was performed. 1146: Upon reevaluation, the patient is resting. I discussed the findings and the treatment plan with the patient. He verbalizes agreement and understanding. He was discharged home. Medical Decision Differential diagnoses includes but is not limited to gastritis, peptic ulcer disease, GERD, gallbladder disease, pancreatitis, small bowel obstruction, acute coronary syndrome, pericarditis, ischemic bowel, irritable bowel disease, irritable bowel syndrome, appendicitis, diverticulitis, malignancy, hernia, urinary tract infection, torsion, perforation, trauma, infectious. Extensive bedside discussion regarding pt's chronic condition and prior extensive work up. On review of EMR, pt with recent CT a/p, swallow study, egd/ colo. Pt already seeing GI and has PCP appt scheduled to discuss additional GI evaluation or further specialist referral again. Pt offered nausea and pain medication, he declined. States he is comfortable using his phenergan at home. Discussed close monitoring of his diet. Discussed sx to watch/return for, f/ u with GI, he verbalized understanding and was agreeable with plan. Pt without any obvious distress, VS stable throughout, I do not suspect new acute pathology. Pt with frustration regarding his ongoing condition, and likely component of underlying anxiety. Medication Reconcilliation Current Medication List: was personally reviewed by me Blood Pressure Screening Patient's blood pressure: Elevated blood pressure Blood pressure disposition: Elevated BP felt to be situational Impression Primary Impression: Nausea Scribe Attestation The scribe's documentation has been prepared under my direction and personally reviewed by me in its entirety. I confirm that the note above accurately reflects all work, treatment, procedures, and medical decision making performed by me. Departure Information Dispostion Home / Self-Care Referrals Fuad Mace M.D. (PCP) Patient Instructions My [facility] Additional Instructions Please call and follow-up with your family doctor and discuss with him continued follow-up with your GI specialist. You may continue your nausea medication at home as prescribed. Please try to stay well-hydrated. Please avoid acidic food and drink in your diet. If you have any worsening pain, vomiting, develop fevers, increased blood in your stools beyond what you have previously experience with hemorrhoids, noticed black stools, jer diarrhea, difficulty urinating, or you have any other concerns, please return the emergency room. Please discuss with your family doctor other medications to help you sleep. In the interim you may try [id number] agents such as melatonin or valerian root. These take according to the bottle instructions.
[2017-05-23] MEDS ORDERED: ZOLP5TAB6 PO (10:35)
[2017-05-23] MEDS ORDERED: ALPR-411 PO (10:35)
[2017-05-23 11:07] LABS: BASO % 1.7 %; EOS % 1.7 %; HEMATOCRIT 42.7 % (42-52); IG# 0.01 K/uL (0.00-0.02); LYMPH % 26.2 %; LYMPH ABS # 1.51 K/uL (1.2-3.4); MEAN CELL VOLUME 90.3 fL (80-100); MEAN CORPUSCULAR HEMOGLOBIN 31.7 pg (25-34); MEAN CORPUSCULAR HGB CONC 35.1 g/dl (32-36); MEAN PLATELET VOLUME 10.3 fL (7.4-10.4); MONO % 13.4 %; MONO ABS # 0.77 K/uL (0.11-0.59); NEUT % 56.8 %; NEUT ABS # 3.27 K/uL (1.4-6.5); PLATELET COUNT 250 K/uL (130-400); RED CELL DISTRIBUTION WIDTH SD 42.9 fL (36.4-46.3); WHITE BLOOD COUNT 5.76 K/uL (4.8-10.8)
[2017-05-23 11:24] LABS: ALBUMIN 4.1 gm/dl (3.4-5.0); ALT/SGPT 23 U/L (12-78); AST/SGOT 13 U/L (15-37); BLOOD UREA NITROGEN 9 mg/dl (7-18); CALCIUM 9.1 mg/dl (8.5-10.1); CARBON DIOXIDE 26 mmol/L (21-32); CREATININE 1.26 mg/dl (0.60-1.40); GLUCOSE 92 mg/dl (70-99); LIPASE 270 U/L (73-393); POTASSIUM 4.3 mmol/L (3.5-5.1); SODIUM 140 mmol/L (136-145)
[2017-05-23 11:29] LABS: ALKALINE PHOSPHATASE 67 U/L (45-117); TOTAL PROTEIN 7.3 gm/dl (6.4-8.2)
[2017-05-23 11:55] VITALS: BP 120/74; PULSE 64; O2SAT 98
== END 2017-05-23 12:18 | disposition home or self-care (01) ==
LOC: C.EDB 09:53 → C.EDC 12:18
DX: R11.0 Nausea (principal); K57.92 Diverticulitis of intestine, part unspecified, without perforation or abscess without bleeding; K64.9 Unspecified hemorrhoids; Z80.9 Family history of malignant neoplasm, unspecified; Z84.1 Family history of disorders of kidney and ureter; Z79.899 Other long term (current) drug therapy; Z91.048 Other nonmedicinal substance allergy status

== ENCOUNTER 2017-05-31 12:17 | Emergency (ER) | payer OTHER ==
[~2017-05-31] VITALS: Ht 180.3 cm; Wt 87.1 kg
[~2017-05-31 12:17] MED LIST changes: +ALPR-411 PO; -NXM/40 PO; -XNX25 PO; +ZOLP5TAB6 PO
[2017-05-31 12:26] VITALS: TEMP 36.6; Ht 180.3 cm; Wt 87.1 kg
[2017-05-31] MEDS ORDERED: SODIUM CHLORIDE 0.9% 1000ML 1,000 ML IV STA (12:41)
[2017-05-31] MEDS ORDERED: PROCHLORPERAZINE 5 MG/ML 2 ML VIAL IV STA (12:41)
[2017-05-31] MEDS ORDERED: KETOROLAC TROMETHAMINE 30 MG/ML VIAL IV STA (12:41)
[2017-05-31] MEDS ORDERED: DICYCLOMINE HCL 10 MG/ML 2 ML AMP IM ONE (12:45)
--- NOTE | 2017-05-31 12:53 | EMERGENCY ROOM VISIT NOTE ---
History Report prepared by Hannah: Cm Hill Under the Supervision of: Dr. Milton Harman M.D. First contact with patient: 12:29 Chief Complaint: DIARRHEA Stated Complaint: NAUSEA,HEADACHES,DIARRHEA FOR 6 DAYS Nursing Triage Summary: triage note: pt reports nausea and diarrhea x 6 days. pt reports "i have had this problem and i can't take it anymore they are trying to get me to see a specialist in [place]." History of Present Illness The patient is a 62 year old white male with a past medical history of diverticulitis, hemorrhoids, rectal fissure, bowel resection, appendectomy, and cholecystectomy who presents to the Emergency Room with complaints of worsening diarrhea and abdominal pain that he has been experiencing 6 months. The patient states that his symptoms have acutely worsened in the past 5 days. Over the past 5 days his diarrhea worsened from loose stool to water. He notes that his abdominal pain is causing him to loose sleep, and he notes that he is nauseated all day. The patient has taken Phenergan, which minimally improves his symptoms. Recently he has developed persistent headaches. He has not vomited, and he denies any associated cough, fevers, or chills. The patient did use Amoxicillin recently for a sinus infection. Source of History: patient Onset: 6 months, worsening for 5 days Position: abdomen Quality: other (diarrhea) Timing: worsening Associated Symptoms: + headache, + nausea, No vomiting Review of Systems See HPI for pertinent positives and negatives. A total of ten systems were reviewed and were otherwise negative. Past Medical & Surgical Medical Problems: (1) Diverticulitis (2) Hemorrhoids (3) Rectal fissure Surgical Problems: (1) History of bowel resection (2) S/P appendectomy (3) S/P cholecystectomy Family History Cancer Kidney disease Social History Smoking Status: Never Smoker Alcohol Use: none Marital Status: Housing Status: lives with significant other Occupation Status: disabled Current/Historical Medications Scheduled Alprazolam (Xanax), 0.5 MG PO DAILY Amlodipine Besylate (Amlodipine Besylate), 5 MG PO DAILY Ascorbic Acid (Vitamin C), 1 TAB PO DAILY Cyanocobalamin (Vitamin B-12), 500 MCG PO DAILY Lactobacillus (Acidophilus), 1 TAB PO DAILY Zolpidem Tartrate (Zolpidem Tartrate), 5 MG PO HS Scheduled PRN Ciprofloxacin Tab (Cipro), 500 MG PO BID PRN for GI Upset Metronidazole (Flagyl), 250 MG PO BID PRN for GI Upset Promethazine Hcl (Phenergan), 25 MG PO Q4H PRN for Nausea Allergies Coded Allergies: Latex1 -Allergic Contact Dermititis (Verified Allergy, Mild, REDNESS, ) Physical Exam Vital Signs Date Time Temp Pulse Resp B/P (MAP) Pulse Ox O2 Delivery O2 Flow Rate FiO2 05/31/17 15:59 67 18 137/85 98 Room Air 05/31/17 14:25 66 18 128/71 98 Room Air 05/31/17 12:26 36.6 79 18 138/95 98 Room Air Physical Exam GENERAL: Awake, alert, well-appearing, NAD HENT: Normocephalic, atraumatic. EYES: Normal conjunctiva. Sclera non-icteric. NECK: Supple. No nuchal rigidity. FROM. RESPIRATORY: CTAB, no rhonchi, wheezing, crackles CARDIAC: RRR, no MRG ABDOMEN: Soft, NTND, Hyperactive bowel sounds. Mild diffuse discomfort, non- surgical abdomen. MSK: No chest wall TTP, no LE edema NEURO: GCS 15, CN 2-12 intact, moves all 4s on command SKIN: No rash or jaundice noted. Medical Decision & Procedures ER Provider Diagnostic Interpretation: Radiology results as stated below per my review and radiologist interpretation: CT SCAN OF THE ABDOMEN AND PELVIS WITH IV CONTRAST CLINICAL HISTORY: Generalized abdominal pain. Nausea and diarrhea. COMPARISON STUDY: Abdominal CT dated 11/08/2016. TECHNIQUE: Following the IV administration of 93 cc of Optiray 320, CT scan of the abdomen and pelvis is performed from the lung bases to the proximal femora. Images are reviewed in the axial, sagittal, and coronal planes. IV contrast was administered without complication. A dose lowering technique was utilized adhering to the principles of ALARA. CT DOSE: 487.34 mGy.cm FINDINGS: Lung bases: The heart is normal in size and without pericardial effusion. Coronary artery calcifications are suggested. A small left-sided pericardial cyst is noted and measures approximately 4.5 x 1.5 cm. The lung bases are clear. Liver: The contrast-enhanced liver is normal in size, contour, and attenuation. There is mild central intrahepatic biliary ductal dilatation. The hepatic veins and portal veins are patent. Gallbladder: Surgically absent noting clips in the gallbladder fossa. Spleen: Normal in size and attenuation. Pancreas: Unremarkable. Adrenal glands: Unremarkable. Kidneys: The contrast enhanced kidneys demonstrate mild cortical atrophy and are without hydronephrosis. The kidneys enhance symmetrically. A 1.9 cm cyst is noted in the right lower pole. An additional subcentimeter cortical hypodensity in the right kidney also likely represents a cyst but is too small for definitive characterization. There are least 2 nonobstructing calculi in the interpolar right kidney measuring up to 8 mm. Abdominal vasculature: The abdominal aorta is normal in course and caliber noting moderate atherosclerotic calcification. Bowel: There is mild to moderate colonic diverticulosis without CT evidence of acute diverticulitis. No bowel obstruction is seen. The appendix is not identified and reported surgically absent. Peritoneum: There is no intraperitoneal free air or abdominal ascites. There is a small fat-containing umbilical hernia. Lymphadenopathy: None. Pelvic viscera: The prostate gland is enlarged and heterogeneous, measuring 5.4 cm in transverse diameter. There is median lobe hypertrophy. The bladder wall is thickened and trabeculated consistent with chronic outlet obstruction. Tiny bladder diverticula are noted. A large lipoma is noted in the right anterior thigh musculature. Skeletal structures: There is mild lumbosacral spondylosis, greatest at L5-S1. No lytic or blastic lesions are seen. IMPRESSION: 1. There are no acute infectious or inflammatory findings in the abdomen or pelvis. 2. Mild to moderate colonic diverticulosis without CT evidence of acute diverticulitis. 3. Nonobstructing right renal calculi. 4. Prostatomegaly with evidence of chronic bladder outlet obstruction. 5. Additional findings as above. Electronically signed by: Geovany Mcknight M.D. 05/31/2017 4:00 PM Dictated Date/Time: 05/31/2017 3:54 PM Laboratory Results 05/31/17 13:00 Red Blood Count 4.92, Mean Corpuscular Volume 89.0, Mean Corpuscular Hemoglobin 31.7, Mean Corpuscular Hemoglobin Concent 35.6, Mean Platelet Volume 10.4, Neutrophils (%) (Auto) 66.0, Lymphocytes (%) (Auto) 19.7, Monocytes (%) (Auto) 11.3, Eosinophils (%) (Auto) 1.5, Basophils (%) (Auto) 1.2, Neutrophils # (Auto ) 5.81, Lymphocytes # (Auto) 1.74, Monocytes # (Auto) 1.00, Eosinophils # (Auto ) 0.13, Basophils # (Auto) 0.11 05/31/17 13:00 Test 05/31/17 13:00 White Blood Count 8.82 K/uL (4.8-10.8) Red Blood Count 4.92 M/uL (4.7-6.1) Hemoglobin 15.6 g/dL (14.0-18.0) Hematocrit 43.8 % (42-52) Mean Corpuscular Volume 89.0 fL (80-100) Mean Corpuscular Hemoglobin 31.7 pg (25-34) Mean Corpuscular Hemoglobin Concent 35.6 g/dl (32-36) Platelet Count 281 K/uL (130-400) Mean Platelet Volume 10.4 fL (7.4-10.4) Neutrophils (%) (Auto) 66.0 % Lymphocytes (%) (Auto) 19.7 % Monocytes (%) (Auto) 11.3 % Eosinophils (%) (Auto) 1.5 % Basophils (%) (Auto) 1.2 % Neutrophils # (Auto) 5.81 K/uL (1.4-6.5) Lymphocytes # (Auto) 1.74 K/uL (1.2-3.4) Monocytes # (Auto) 1.00 K/uL (0.11-0.59) Eosinophils # (Auto) 0.13 K/uL (0-0.5) Basophils # (Auto) 0.11 K/uL (0-0.2) RDW Standard Deviation 41.4 fL (36.4-46.3) RDW Coefficient of Variation 12.8 % (11.5-14.5) Immature Granulocyte % (Auto) 0.3 % Immature Granulocyte # (Auto) 0.03 K/uL (0.00-0.02) Urine Color YELLOW Urine Appearance CLEAR (CLEAR) Urine pH 6.0 (4.5-7.5) Urine Specific Gilbert 1.009 (1.000-1.030) Urine Protein NEG (NEG) Urine Glucose (UA) NEG (NEG) Urine Ketones NEG (NEG) Urine Occult Blood NEG (NEG) Urine Nitrite NEG (NEG) Urine Bilirubin NEG (NEG) Urine Urobilinogen NEG (NEG) Urine Leukocyte Esterase NEG (NEG) Anion Gap 8.0 mmol/L (3-11) Est Creatinine Clear Calc Drug Dose 59.5 ml/min Estimated GFR () 63.6 Estimated GFR (Non- 54.9 BUN/Creatinine Ratio 10.7 (10-20) Calcium Level 9.2 mg/dl (8.5-10.1) Phosphorus Level 3.2 mg/dl (2.5-4.9) Magnesium Level 2.1 mg/dl (1.8-2.4) Total Bilirubin 0.8 mg/dl (0.2-1) Direct Bilirubin 0.2 mg/dl (0-0.2) Aspartate Amino Transf (AST/SGOT) 13 U/L (15-37) Alanine Aminotransferase (ALT/SGPT) 24 U/L (12-78) Alkaline Phosphatase 68 U/L (45-117) Total Protein 7.4 gm/dl (6.4-8.2) Albumin 4.2 gm/dl (3.4-5.0) Lipase 1324 U/L (73-393) Laboratory results reviewed by me Medications Administered Medications (Trade) Dose Ordered Sig/Jorge Route Start Time Stop Time Status Last Admin Dose Admin Sodium Chloride 1,000 ml @ 999 mls/hr Q1H1M STAT IV 05/31/17 12:41 05/31/17 13:41 DC 05/31/17 13:01 999 MLS/HR Dicyclomine HCl (Bentyl Inj) 20 mg NOW ONCE IM 05/31/17 12:45 05/31/17 12:46 DC 05/31/17 13:01 20 MG Ketorolac Tromethamine (Toradol Inj) 30 mg NOW STAT IV 05/31/17 12:41 05/31/17 12:45 DC 05/31/17 13:02 30 MG Prochlorperazine Edisylate (Compazine Inj) 10 mg NOW STAT IV 05/31/17 12:41 05/31/17 12:45 DC 05/31/17 13:02 10 MG ED Course 1232: The patient was evaluated in room B4B. A complete history and physical exam was performed. 1241: Ordered Compazine 10 mg IV, Toradol 30 mg IV, Sodium Chloride 1000 mL @ 999 mL/hr IV. 1245: Ordered Bentyl 20 mg IM. 1413: I checked on the patient at this time. He is not having any abdominal discomfort. 1640: I reevaluated the patient. Discussed results and discharge instructions: He verbalized understanding and agreement. The patient is ready for discharge. Medical Decision Nursing notes reviewed. Ancillary studies and prior records reviewed. The patient is a 62 year old white male with a past medical history of diverticulitis, hemorrhoids, rectal fissure, bowel resection, appendectomy, and cholecystectomy who presents to the Emergency Room with complaints of worsening diarrhea and abdominal pain that he has been experiencing 6 months. Differential diagnosis: Etiologies such as diverticulitis, PUD, biliary pathology, UTI, pancreatitis, obstruction, mesenteric ischemia, aortic pathology, infections, inflammatory bowel disease, renal colic, as well as others were entertained. Patient was seen and evaluated the bedside. Patient does have a known history of prior diverticulosis and diverticulitis status post colonic resection. Patient has had a prior cholecystectomy and appendectomy. Patient has complained of some worsening nausea with associated loose watery stools. Patient denies any recent travel or sick contacts. Patient did recently take a course of amoxicillin for sinusitis. Patient states that this is been ongoing since October. The patient has not had a CT scan since October. Patient has had a fairly recent colonoscopy he states with Dr. Henao which did not show any overt abnormalities. Patient otherwise is fairly well-appearing does have questionably hyperactive bowel sounds on exam. Patient has a nonfocal abdominal exam only mild discomfort but is nonsurgical. Patient did have blood work completed stool studies, IV fluids pain medications and antiemetics, and a CT of the abdomen pelvis with IV and oral contrast for further evaluation. Patient's blood work showed normal white blood cell count. No anemia noted. Patient had no elevations in LFTs. Kidney function normal. Patient did have elevated lipase greater than 3 times the normal limit. However, the patient really does not have any epigastric or abdominal pain. The patient has been able tolerate p.o. Patient denies any heavy drinking, hyperlipidemia, recent trauma or instrumentation. Patient was told that he may just need to have this checked in the future but do not believe he needs to stay especially as there are no notable findings on the CT scan. Patient was feeling improved and was given the same medications which he was given here as an outpatient. Patient was told also to follow-up as he does have a concerning skin growth on his lower lip which may be melanoma. Patient was given strict follow-up, discharge, and return precautions. All questions were answered. Patient was deemed suitable for outpatient follow-up at this time. Patient agreed with the plan of care and was safely discharged home. Medication Reconcilliation Current Medication List: was personally reviewed by me Blood Pressure Screening Patient's blood pressure: Normal blood pressure Impression Primary Impression: Abdominal pain Additional Impressions: Nausea Elevated lipase Skin growth Scribe Attestation The scribe's documentation has been prepared under my direction and personally reviewed by me in its entirety. I confirm that the note above accurately reflects all work, treatment, procedures, and medical decision making performed by me. Departure Information Dispostion Home / Self-Care Prescriptions Prochlorperazine Maleate (COMPAZINE) 10 Mg Tab 1 TAB PO Q6 for Nausea for 7 Days, #30 TAB 3 Refills Prov: Milton Harman M.D. 05/31/17 Dicyclomine Hcl (BENTYL) 10 Mg Cap 10 MG PO TID for 7 Days, #21 CAP Prov: Milton Harman M.D. 05/31/17 Referrals Fuad Mace M.D. (PCP) Patient Instructions My [facility], Nausea Vomit Control Additional Instructions Please return to the emergency department if you have worsening or recurrent symptoms not amenable to at-home treatment. Please call for a follow-up appointment with her primary care physician. Please take your medications as prescribed. If you have other concerns and/or complaints please feel free to also call your primary care physician's office or return the ED for further evaluation, management, and treatment. You may take 600 mg Ibuprofen every 6 hours as needed for pain with food for no more than 2 consecutive days. You may take tylenol 1000 mg every 6 hours as needed for pain. You may take motrin and tylenol separately or at the same time. Take your medications as prescribed. Do not take the compazine and phenergan at the same time. Please make sure to have the growth on your lip examined by your PCP and a possible dermatology referral if needed. You have been examined and treated today on an emergency basis only. This is not a substitute for, or an effort to provide, complete comprehensive medical care. It is impossible to recognize and treat all injuries or illnesses in a single emergency department visit. It is therefore important that you follow up closely with [facility], your PCP, and/or your specialist(s). Call as soon as possible for an appointment. Thank you for your time and consideration. I look forward to speaking with you again soon. Please don't hesitate to call us if you have any questions. Problem Qualifiers Primary Impression: Abdominal pain Abdominal location: unspecified location Qualified Codes: R10.9 - Unspecified abdominal pain
[2017-05-31] MEDS ORDERED: OPTIRAY 320 IV PRN (13:00)
[2017-05-31 13:22] LABS: BASO % 1.2 %; BASO ABS # 0.11 K/uL (0-0.2); EOS % 1.5 %; EOS ABS # 0.13 K/uL (0-0.5); HEMATOCRIT 43.8 % (42-52); HEMOGLOBIN 15.6 g/dL (14.0-18.0); IG# 0.03 K/uL (0.00-0.02); LYMPH % 19.7 %; LYMPH ABS # 1.74 K/uL (1.2-3.4); MEAN CORPUSCULAR HEMOGLOBIN 31.7 pg (25-34); MEAN CORPUSCULAR HGB CONC 35.6 g/dl (32-36); MEAN PLATELET VOLUME 10.4 fL (7.4-10.4); MONO % 11.3 %; NEUT ABS # 5.81 K/uL (1.4-6.5); PLATELET COUNT 281 K/uL (130-400); RED CELL DISTRIBUTION WIDTH CV 12.8 % (11.5-14.5); RED CELL DISTRIBUTION WIDTH SD 41.4 fL (36.4-46.3); WHITE BLOOD COUNT 8.82 K/uL (4.8-10.8)
[2017-05-31 13:39] LABS: ALBUMIN 4.2 gm/dl (3.4-5.0); CALCIUM 9.2 mg/dl (8.5-10.1); CREATININE 1.37 mg/dl (0.60-1.40); POTASSIUM 3.8 mmol/L (3.5-5.1)
[2017-05-31 13:42] LABS: PHOSPHORUS 3.2 mg/dl (2.5-4.9); TOTAL PROTEIN 7.4 gm/dl (6.4-8.2)
--- NOTE | 2017-05-31 16:01 | DIAGNOSTIC IMAGING REPORT ---
CT SCAN OF THE ABDOMEN AND PELVIS WITH IV CONTRAST CLINICAL HISTORY: Generalized abdominal pain. Nausea and diarrhea. COMPARISON STUDY: Abdominal CT dated 11/08/2016. TECHNIQUE: Following the IV administration of 93 cc of Optiray 320, CT scan of the abdomen and pelvis is performed from the lung bases to the proximal femora. Images are reviewed in the axial, sagittal, and coronal planes. IV contrast was administered without complication. A dose lowering technique was utilized adhering to the principles of ALARA. CT DOSE: 487.34 mGy.cm FINDINGS: Lung bases: The heart is normal in size and without pericardial effusion. Coronary artery calcifications are suggested. A small left-sided pericardial cyst is noted and measures approximately 4.5 x 1.5 cm. The lung bases are clear. Liver: The contrast-enhanced liver is normal in size, contour, and attenuation. There is mild central intrahepatic biliary ductal dilatation. The hepatic veins and portal veins are patent. Gallbladder: Surgically absent noting clips in the gallbladder fossa. Spleen: Normal in size and attenuation. Pancreas: Unremarkable. Adrenal glands: Unremarkable. Kidneys: The contrast enhanced kidneys demonstrate mild cortical atrophy and are without hydronephrosis. The kidneys enhance symmetrically. A 1.9 cm cyst is noted in the right lower pole. An additional subcentimeter cortical hypodensity in the right kidney also likely represents a cyst but is too small for definitive characterization. There are least 2 nonobstructing calculi in the interpolar right kidney measuring up to 8 mm. Abdominal vasculature: The abdominal aorta is normal in course and caliber noting moderate atherosclerotic calcification. Bowel: There is mild to moderate colonic diverticulosis without CT evidence of acute diverticulitis. No bowel obstruction is seen. The appendix is not identified and reported surgically absent. Peritoneum: There is no intraperitoneal free air or abdominal ascites. There is a small fat-containing umbilical hernia. Lymphadenopathy: None. Pelvic viscera: The prostate gland is enlarged and heterogeneous, measuring 5.4 cm in transverse diameter. There is median lobe hypertrophy. The bladder wall is thickened and trabeculated consistent with chronic outlet obstruction. Tiny bladder diverticula are noted. A large lipoma is noted in the right anterior thigh musculature. Skeletal structures: There is mild lumbosacral spondylosis, greatest at L5-S1. No lytic or blastic lesions are seen. IMPRESSION: 1. There are no acute infectious or inflammatory findings in the abdomen or pelvis. 2. Mild to moderate colonic diverticulosis without CT evidence of acute diverticulitis. 3. Nonobstructing right renal calculi. 4. Prostatomegaly with evidence of chronic bladder outlet obstruction. 5. Additional findings as above. Electronically signed by: Geovany Mcknight M.D. 05/31/2017 4:00 PM Dictated Date/Time: 05/31/2017 3:54 PM
[2017-05-31] MEDS ORDERED: DICY10CA55 PO (16:53)
[2017-05-31] MEDS ORDERED: PROC1TAB5 PO (16:53)
[2017-05-31 17:04] VITALS: BP 119/70; PULSE 67; O2SAT 98
== END 2017-05-31 17:15 | disposition home or self-care (01) ==
LOC: C.EDB 12:19
DX: R10.84 Generalized abdominal pain (principal); R11.0 Nausea; R74.8 Abnormal levels of other serum enzymes; D37.01 Neoplasm of uncertain behavior of lip; R19.7 Diarrhea, unspecified; K57.92 Diverticulitis of intestine, part unspecified, without perforation or abscess without bleeding; K64.9 Unspecified hemorrhoids; K60.2 Anal fissure, unspecified; Z90.49 Acquired absence of other specified parts of digestive tract; Z90.89 Acquired absence of other organs; Z91.040 Latex allergy status; Z84.1 Family history of disorders of kidney and ureter

== ENCOUNTER → 2017-07-19 | Day surgery (SDC) | payer OTHER ==
[2017-07-18 10:16] VITALS: BMI 26.0
[~2017-07-19] VITALS: Ht 180.3 cm; Wt 86.4 kg
[~2017-07-19] MED LIST changes: -ASCO-63 PO; -CIPR1TAB11 PO; -CYAN100T PO; +FLUT0.15 NAE; -LACTTAB7 PO; +LIDOCAINE HCL 2% 2 ML VIAL (20MG/ML) ONE; -METR1TAB4 PO; +PROPOFOL IV EMULSION 10 MG/ML 20 ML VIAL ONE; +SODIUM CHLORIDE 0.9% 500ML 500 ML IV ONE; -ZOLP5TAB6 PO
[2017-07-19 13:45] VITALS: Ht 180.3 cm; Wt 86.4 kg
[2017-07-19 13:47] VITALS: TEMP 37
--- NOTE | 2017-07-19 14:01 | Endo History and Physical ---
History & Physical Date of Service: July 19, 2017. Chief Complaint: DYSHAGIA, ABD PAIN Referring Physician: DR. PRADO History of Present Illness dysphagia Past Medical History Atrial Fibrillation, Anxiety, Other Past Surgical History Hx Cardiac Surgery: No Hx Internal Defibrillator: No Hx Pacemaker: No Hx Abdominal Surgery: Yes (APPY, ALIREZA, COLON RESECTION) Hx of Implantable Prosthesis: No Hx Post-Op Nausea and Vomiting: No Hx Cancer Surgery: No Hx Thoracic Surgery: No Hx Orthopedic: No Hx Urinary Tract Surgery: No Family History None Social History Smoking Status: Never Smoker Hx Substance Use: No Hx Alcohol Use: No Allergies Coded Allergies: Latex1 -Allergic Contact Dermititis (Verified Allergy, Mild, REDNESS, 07/18) NO KNOWN DRUG ALLERGIES (Verified Allergy, Unknown, ., 07/18/17) Current Medications Reported Home Medications Medications Dose Route/Sig Max Daily Dose Days Date Category Flonase Allergy Relief (Fluticasone Propionate (Nasal)) 50 Mcg/Act Spr 1 [place] BEULAH DIRECTED 07/18/17 Reported Phenergan (Promethazine HCl) 25 Mg Tab 25 Mg PO Q4H PRN 07/18/17 Reported Xanax (Alprazolam) 0.5 Mg Tab 1-2 Tab PO HS 05/23/17 Reported Amlodipine Besylate 5 Mg Tab 5 Mg PO QAM 10/30/16 Reported Vital Signs Weight (Kilograms): 86.36 Height (Feet): 5 Height (Inches): 11 Date Time Temp Pulse Resp B/P (MAP) Pulse Ox O2 Delivery O2 Flow Rate FiO2 07/19/17 13:47 37.0 72 16 129/86 (100) 98 Room Air Physical Exam General Appearance: WD/WN, no apparent distress Respiratory/Chest: Auscultation: breath sounds normal Cardiovascular: Heart Auscultation: RRR Abdomen: Bowel Sounds: normal Inspection & Palpation: soft, non-distended, no tenderness, guarding & rebound Assessment and Plan EGD with possible bx/dilation
--- NOTE | 2017-07-19 15:00 | Anesthesiology Progress Note ---
Anesthesia Post Op Note Date & Time July 19, 2017 at 14:59 Vital Signs Pain Intensity: 0 Vital Signs Past 12 Hours Date Time Temp Pulse Resp B/P (MAP) Pulse Ox O2 Delivery O2 Flow Rate FiO2 07/19/17 14:52 73 18 109/72 (84) 97 Room Air 07/19/17 14:37 77 18 89/63 (72) 96 Room Air 07/19/17 13:47 37.0 72 16 129/86 (100) 98 Room Air Notes Mental Status: alert / awake / arousable, participated in evaluation Pt Amnestic to Procedure: Yes Nausea / Vomiting: adequately controlled Pain: adequately controlled Airway Patency, RR, SpO2: stable & adequate BP & HR: stable & adequate Hydration State: stable & adequate Anesthetic Complications: no major complications apparent
[2017-07-19 15:07] VITALS: BP 112/67; PULSE 72; O2SAT 98
--- NOTE | 2017-07-19 15:12 | Discharge Instructions ---
Endoscopy Patient Instructions Date / Procedure(s) Performed July 19, 2017. EGD Allergy Information Coded Allergies: Latex1 -Allergic Contact Dermititis (Verified Allergy, Mild, REDNESS, 07/19) NO KNOWN DRUG ALLERGIES (Verified Allergy, Unknown, ., 07/19/17) Discharge Date / Findings July 19, 2017. duodenitis; esophagitis Medication Instructions Restart Stopped Medication(s): Reported Home Medications Medications Dose Route/Sig Max Daily Dose Days Date Category Flonase Allergy Relief (Fluticasone Propionate (Nasal)) 50 Mcg/Act Spr 1 [place] BEULAH DIRECTED 07/18/17 Reported Phenergan (Promethazine HCl) 25 Mg Tab 25 Mg PO Q4H PRN 07/18/17 Reported Xanax (Alprazolam) 0.5 Mg Tab 1-2 Tab PO HS 05/23/17 Reported Amlodipine Besylate 5 Mg Tab 5 Mg PO QAM 10/30/16 Reported Prilosec 40mg daily Reported Home Medications Medications Dose Route/Sig Max Daily Dose Days Date Category Flonase Allergy Relief (Fluticasone Propionate (Nasal)) 50 Mcg/Act Spr 1 [place] BEULAH DIRECTED 07/18/17 Reported Phenergan (Promethazine HCl) 25 Mg Tab 25 Mg PO Q4H PRN 07/18/17 Reported Xanax (Alprazolam) 0.5 Mg Tab 1-2 Tab PO HS 05/23/17 Reported Amlodipine Besylate 5 Mg Tab 5 Mg PO QAM 10/30/16 Reported Prilosec 40mg daily Provider Instructions Activity Restrictions - No exercising or heavy lifting for 24 hours. - Do not drink alcohol the day of the procedure. - Do not drive a car or operate machinery until the day after the procedure. - Do not make any important decisions or sign important papers in 24 hours after the procedure. Following Day: - Return to full activity which may include returning to work/school. Diet Start your diet with liquids and light foods (jello, soup, juice, toast). Then eat your usual diet if not nauseated. Treatment For Common After Affects For mild abdominal pain, bloating, or excessive gas: - Rest - Eat lightly - Lie on right side Follow-Up Information Follow-up with DR. PRADO as scheduled Anesthesia Information What You Should Know You have had a procedure that required some medicine to reduce anxiety and discomfort. This treatment is called moderate sedation. After receiving the treatment, you may be sleepy, but you will be able to breathe on your own. The effects of the treatment may last for several hours. Follow these instructions along with Activity/Diet recommendations noted above: * Do NOT do anything where dizziness or clumsiness would be dangerous. * Rest quietly at home today, then you can be up and about tomorrow. * Have a responsible person stay with you the rest of today. * You may have had an I.V. today. If so, you may take the dressing off later today. Recommendations Call your doctor if: * Trouble breathing * Continuous vomiting for more than 24 hours * Temperature above 101 degrees * Severe abdominal pain or bloating * Pain not relieved by pain medicine ordered * There is increased drainage or redness from any incision * A large amount of rectal bleeding greater than 2-3 tablespoons. (If you had a polyp/s removed or have hemorrhoids, a small amount of blood - from the rectum is to be expected.) * You have any unanswered questions or concerns. IN THE EVENT OF A SERIOUS EMERGENCY, GO TO THE NEAREST EMERGENCY ROOM Your discharge instructions were prepared by provider Loki Kim. Patient Instructions Signature Page Eric Scanlon Patient (or Guardian) Signature/Date: I have read and understand the instructions given to me by my caregivers. Caregiver/RN/Doctor Signature/Date: The above-named patient and/or guardian has received patient instructions on this date. + Original Patient Signature Page (only) stays with chart. Please make copy for patient.
--- NOTE | 2017-07-19 17:52 | GI REPORT ---
Patient Name: Eric Scanlon Procedure Date: 07/19/2017 2:11 PM Date of : 1955 Admit Type: Outpatient Age: 62 Gender: Male Attending MD: Loki Kim MD Procedure: Upper GI endoscopy Providers: Loki Kim MD Referring MD: Js Colindres MD, Fuad Mace MD Indications: Esophageal dysphagia, Nausea Medicines: Propofol per Anesthesia Complications: No immediate complications. Estimated blood loss: Minimal. Estimated Blood Loss: Estimated blood loss was minimal. Procedure: Pre-Anesthesia Assessment: - Prior to the procedure, a History and Physical was performed, and patient medications and allergies were reviewed. The patient's tolerance of previous anesthesia was also reviewed. The risks and benefits of the procedure and the sedation options and risks were discussed with the patient. All questions were answered, and informed consent was obtained. Prior Anticoagulants: The patient has taken no previous anticoagulant or antiplatelet agents. ASA Grade Assessment: II - A patient with mild systemic disease. After reviewing the risks and benefits, the patient was deemed in satisfactory condition to undergo the procedure. After obtaining informed consent, the endoscope was passed under direct vision. Throughout the procedure, the patient's blood pressure, pulse, and oxygen saturations were monitored continuously. The scope was introduced through the mouth, and advanced to the second part of duodenum. The upper GI endoscopy was accomplished without difficulty. The patient tolerated the procedure well. Findings: The upper third of the esophagus and middle third of the esophagus were normal. Biopsies were taken with a cold forceps for histology. Verification of patient identification for the specimen was done by the physician and crystal growing technician using the patient's name and medical record number. LA Grade B (one or more mucosal breaks greater than 5 mm, not extending between the tops of two mucosal folds) esophagitis with no bleeding was found 38 to 40 cm from the incisors. Patchy mildly erythematous mucosa without bleeding was found in the gastric antrum. Biopsies were taken with a cold forceps for histology. Estimated blood loss was minimal. Verification of patient identification for the specimen was done by the physician and crystal growing technician using the patient's name and medical record number. Patchy moderate inflammation characterized by congestion (edema), erosions and erythema was found in the duodenal bulb and in the second portion of the duodenum. Biopsies were taken with a cold forceps for histology. Estimated blood loss was minimal. Verification of patient identification for the specimen was done by the physician and crystal growing technician using the patient's name and medical record number. The cardia and gastric fundus were normal on retroflexion. Retained gastric contents are not identified on this exam. The Z-line was regular and was found 40 cm from the incisors. Impression: - Normal upper third of esophagus and middle third of esophagus. Biopsied. - LA Grade B reflux esophagitis. - Erythematous mucosa in the antrum. Biopsied. - Duodenitis. Biopsied. - Z-line regular, 40 cm from the incisors. Recommendation: - Discharge patient to home (ambulatory). - Resume regular diet. - Use Prilosec (omeprazole) 40 mg PO daily. - No aspirin, ibuprofen, naproxen, or other non-steroidal anti-inflammatory drugs. - Return to GI clinic with Dr colindres as previously scheduled. MD Loki Lynne MD 07/19/2017 5:51:28 PM This report has been signed electronically. Note Initiated On: 07/19/2017 2:11 PM Number of Addenda: 0 I attest to the content of the Intraoperative Record and orders documented therein, exceptions below {[id number]}
== END | disposition home or self-care (01) ==
LOC: C.GI 13:24
PROVIDERS: ATTEND Internal Medicine Gastroenterology
DX: R13.10 Dysphagia, unspecified (principal); K29.80 Duodenitis without bleeding; K21.0 Gastro-esophageal reflux disease with esophagitis; K31.89 Other diseases of stomach and duodenum; I48.91 Unspecified atrial fibrillation; I10 Essential (primary) hypertension; Z90.89 Acquired absence of other organs; Z90.49 Acquired absence of other specified parts of digestive tract; Z91.040 Latex allergy status; Z79.899 Other long term (current) drug therapy

== ENCOUNTER 2021-12-01 06:53 | Inpatient (IN) ==
--- NOTE | 2021-11-29 08:24 | Anesthesiology Consultation ---
Date of Service November 29, 2021 Assessment & Plan (1) Encounter for pre-operative examination: Chart Review Chart Review: Acceptable Risk for Surgery and Patient NOT seen in Pre Admission Testing Consults Requested none History Surgery Operation Date: 12/01/21 11:45 Proposed Procedures p Robotic Possible Hand Assisted Laparoscopic Nephrectomy, Partial Left - Shemar Castillo DO Height/Weight Height: 5 ft 11 in Weight: 81.647 kg Allergies Allergy/AdvReac Type Severity Reaction Status Date / Time latex Allergy Mild REDNESS Verified 11/28/21 10:44 Medications Home Medications Medication Instructions Recorded Confirmed Last Taken acetaminophen 500 mg tablet 1,000 mg PO Q6H PRN Pain 03/07/20 11/28/21 04/08/20 doxepin 10 mg capsule 10 mg PO .COMPLEX #60 caps 12/14/20 11/28/21 Unknown duloxetine 20 mg capsule,delayed 20 mg PO DAILY #30 caps 06/02/21 11/28/21 Unknown release (Cymbalta) promethazine 25 mg tablet 25 mg PO Q6H PRN Nausea #30 tabs 09/16/21 11/28/21 Unknown tamsulosin 0.4 mg capsule (Flomax) 0.4 mg PO DAILY #30 caps 11/21/21 11/28/21 Unknown amlodipine 5 mg tablet (Norvasc) 5 mg PO QAM 11/28/21 11/28/21 Unknown dexlansoprazole 60 mg 60 mg PO QAM 11/28/21 11/28/21 Unknown capsule,biphase delayed release (Dexilant) famotidine 20 mg tablet (Pepcid) 20 mg PO DAILY PRN Acid Reflux 11/28/21 11/28/21 Unknown oxybutynin chloride 5 mg 5 mg PO QAM 11/28/21 11/28/21 Unknown tablet,extended release 24 hr Past Medical History Medical History Acid reflux Actinic keratosis Anemia BPH with obstruction/lower urinary tract symptoms Depression with anxiety Diverticular disease Duodenitis Elevated PSA Hiatal hernia History of anesthesia reaction r/t airway - awaking-"DIFFICULTY REMOVING AIRWAY" X 1 History of COVID-14 June 2021 > not hospitalized > had stomach issues Hypertension Insomnia Irritable bowel syndrome Kidney stone at present Nausea CHRONIC Nephrolithiasis Panic disorder without agoraphobia Pericardial cyst just monitoring Peripheral neuropathy Vitamin B12 deficiency Past Family History Family History Grandmother (Paternal) Family history of diabetes mellitus Uncle Family history of diabetes mellitus Other No family history of adverse response to anesthesia Past Surgical History Surgical History History of arthroscopic knee surgery right History of bowel resection d/t diverticulitis - [facility] - 2002 History of colonoscopy History of esophagogastroduodenoscopy (EGD) History of hemorrhoidectomy History of rectal fissure X 2 REPAIR Hx of appendectomy Hx of cholecystectomy Social History Smoking Status: Never smoker Do You Dip or Chew Tobacco: No (quit several yrs ago) Hx Alcohol Use: No Hx Substance Use: Yes substance use type: marijuana Substance Use Type Other:: marijuana use few times per week > advised npo status Testing Electrocardiogram Date: 11/25/21 DICTATED BY:Aristeo Diamond MD Test Reason : Blood Pressure : / mmHG Vent. Rate : 058 BPM Atrial Rate : 058 BPM P-R Int : 156 ms QRS Dur : 100 ms QT Int : 418 ms P-R-T Axes : 076 -26 054 degrees QTc Int : 410 ms Sinus bradycardia Otherwise normal ECG When compared with ECG of 23-NOV-2021 06:42, Nonspecific T wave abnormality no longer evident in Anterior leads Confirmed by Aristeo Diamond ([id number]) on 11/25/2021 10:35:44 PM Referred By: Shemar Castillo Confirmed By:Aristeo Diamond Signed By: 11/25/21 [id number] Dictated:11/25/21 1518 Transcribed: Compensation Intern: The status of this report isSigned. Chest X-Ray Date: 11/25/21 TWO VIEW CHEST CLINICAL HISTORY: Preoperative examination. Nephrolithiasis. FINDINGS: PA and lateral chest radiographs are compared to study dated 05/10/2017 and correlated with chest CT dated 09/27/2015. The cardiomediastinal silhouette is unremarkable. The lungs and pleural spaces are clear. There is no pneumothorax. The bony thorax appears intact. Cholecystectomy clips are noted in the right upper quadrant. IMPRESSION: No active disease in the chest. ACT 112: Negative or not required by law. Electronically signed by: Geovany Mcknight M.D. 11/25/2021 3:29 PM Dictated:11/25/21 1528 Echocardiogram Date: 04/22/20 EF: 70 LV Function: normal Valvular Disease: + no significant valvular disease
[~2021-12-01 06:53] MED LIST changes: -ALPR-411 PO; -FLUT0.15 NAE; -LIDOCAINE HCL 2% 2 ML VIAL (20MG/ML) ONE; +LR 15ML/HR IV SCH; -NRV/5 PO; -PROM25TA9 PO; -PROPOFOL IV EMULSION 10 MG/ML 20 ML VIAL ONE; -SODIUM CHLORIDE 0.9% 500ML 500 ML IV ONE; +ceFAZolin 2000MG 2,000 MG/15 ML SYR IV SCH
[2021-12-01] MEDS ORDERED: fentaNYL citrate 100 MCG/2 ML VIAL ONE (07:07)
[2021-12-01] MEDS ORDERED: MIDAZOLAM HCL 1 MG/ML 2ML VIAL ONE (07:07)
--- NOTE | 2021-12-01 07:15 | History & Physical Bridge Note ---
Date of Service December 01, 2021 History & Physical Bridge Note I have examined the patient, reviewed the History & Physical and in the interval since the performance of the History & Physical I have noted the following changes of clinical significance: no changes noted Patient still dealing with exacerbation of chronic nausea. Small right sided stone with right flank and abdominal pain. 1.7 cm enhancing mass of left kidney with suspicion for malignancy. Plan for Left Partial Nephrectomy Robot assisted laparoscopic with possible hand assist.
[2021-12-01] MEDS ORDERED: HYDROmorphone INJ 2 MG/ML SYR/VIAL IV PRN (07:59)
[2021-12-01] MEDS ORDERED: ePHEDrine sulfate 50 MG/ML AMP IV PRN (07:59)
[2021-12-01] MEDS ORDERED: ONDANSETRON INJ 2 MG/ML 2 ML VIAL IV PRN (07:59)
[2021-12-01] MEDS ORDERED: ATROPINE SULFATE 0.1 MG/ML 10ML SYR IV PRN (07:59)
[2021-12-01] MEDS ORDERED: BUPIVACAINE 0.5 % 5 MG/1 ML MPF 30ML VIAL ONE (08:04)
[2021-12-01] MEDS ORDERED: HYDROmorphone INJ 2 MG/ML SYR/VIAL ONE (09:21)
[2021-12-01] MEDS ORDERED: ePHEDrine sulfate 50 MG/ML SYR ONE (09:25)
[2021-12-01] MEDS ORDERED: ONDANSETRON INJ 2 MG/ML 2 ML VIAL ONE ×2 (09:25→11:59)
[2021-12-01] MEDS ORDERED: PHENYLEPHRINE 100MCG/ML 5ML SYR ONE (09:25)
[2021-12-01] MEDS ORDERED: NEOSTIGMINE METHYLSULFATE 1 MG/ML 10ML VIAL ONE (09:25)
[2021-12-01] MEDS ORDERED: GLYCOPYRROLATE 0.2 MG/ML VIAL ONE (09:25)
[2021-12-01] MEDS ORDERED: DEXAMETHASONE SOD INJ 4 MG/ML VIAL ONE (09:25)
[2021-12-01] MEDS ORDERED: ROCURONIUM BROMIDE 10 MG/ML 5 ML VIAL IV ONE ×6 (09:25→11:44)
[2021-12-01] MEDS ORDERED: LARYING-O-JET KIT (LTA) ONE (09:25)
[2021-12-01] MEDS ORDERED: PROPOFOL IV EMULSION 10 MG/ML 20 ML VIAL IV ONE (09:25)
[2021-12-01] MEDS ORDERED: LIDOCAINE 2% MPF LOCAL 5 ML VIAL INFIL ONE (09:25)
[2021-12-01] MEDS ORDERED: LABETALOL HCL IV 5 MG/ML 20ML IV ONE (09:49)
[2021-12-01] MEDS ORDERED: FLOSEAL HEMOSTATIC MATRIX 10ML TOP ONE (11:21)
[2021-12-01] MEDS ORDERED: SURGICEL ABSORB HEMOSTAT 2IN X 14IN TOP ONE (11:22)
[2021-12-01] MEDS ORDERED: TISSEEL FIBRIN SEALANT 4ML TOP ONE (11:23)
--- NOTE | 2021-12-01 11:25 | Operative Report ---
PG Post Operative Report Pre & Post Diagnosis Operation Date: 12/01/21 08:15 Pre-Op Diagnosis: Left renal mass Post-Op Diagnosis: Left renal mass I identified the patient and participated in the time-out.: Yes Procedure Operation Date: 12/01/21 08:15 Actual Procedures p Robotic Assisted Laparoscopic Partial Nephrectomy, Left. Extensive lysis of adhesions.(Left) - Shemar Castillo, Surgeon Shemar Castillo, II, DO Media Analyst Tata Palencia. Pieter Welch MD Estimated Blood Loss 50 Findings Consistent with Post-Op Diagnosis Upper pole renal mass on left with enhancement on CT. Severe adhesions from midline and left lateral side wall. Specimens Renal mass. Drains 18 Fr Hampton catheter. Anesthesia Type General Complications none Disposition Disposition: Recovery Room Indications Patient with enhancing left renal mass. Risk and benefits were discussed at length. Patient elected to undergo robotic assisted laparoscopic partial nephrectomy. Description of Procedure The patient was brought to the operative suite and placed under general endotracheal intubation anesthesia in the supine position. The patient was transferred to the lateral position with the operative side up. At this point, the patient prepped and draped in the usual sterile fashion and a timeout was completed. Preoperative antibiotics of Ancef 2 grams had been given. ILIANA's and SCD's were placed on the patient's lower extremities. A catheter was placed using sterile technique. With the time out completed the patient was flexed and the skin was marked. The lateral camera port site was anesthetized. A small incision was made into the skin and subcutaneous tissues. A Varess needle was selected and placed. The needle was easily moved and it was irrigated and aspirated without any issues or concerns for placement. Insufflation commenced. Once insufflated, A camera port was placed. The cavity was insufflated to 12-15 mmHG. A laparoscopic camera was placed and the abdominal cavity inspected. No bleeding, injury, or other concerning features were noted. At this point, the skin was marked for port placement and 8mm working ports were placed. The skin was anesthetized down to fascia and an approx 1cm incision was made to place the 2 x 8mm ports. Two senior office support assistant sosa ports were also placed in similar fashion under direct visualization. The robot was positioned and docked. The camera was placed and all trocars were positioned under direct visualization. Patient will have been noted to have numerous scars on the abdomen. A large amount of adhesions were noted along the anterior wall as well as a number of adhesions along the lateral wall on the left. In order to place the majority of the ports a lysis of adhesion was completed. During each individual port placement care was taken to first clear the area for the port to be placed. Extensive lysis of adhesion was completed using mainly blunt dissection as well as some occasional sharp dissection and limited cautery as much as possible. In the pelvic region there was a massive amount of adhesions with largely omentum. A small area of the colon did appear to be somewhat adhered to the abdominal wall. Care was taken to slowly dissect through this area with care taken to monitor the bowel throughout the entire process. No areas of major issues or problems. Adhesions were largely able to be removed without major issue and no considerable bleeding. Greater than 30 minutes was spent in the dissection and lysis of adhesions through this process. JAXON Dodd was integral in port placement, camera utilization, and docking procedure. She remained in sterile attire and then proceeded to assist the remainder of the case. Dr. Welch was readily available for assistance during barrera portions of the proceeding procedure. Dr. Welch assumed the video production assistant role for the major portion of mass removal, vessel clamping, and closure of the kidney. At this point, I transitioned to the robotic console. The colon was mobilized medially to expose the retroperitoneum and the area assessed. Adhesions were freed to allow mobilization. A small amount of additional adhesions were noted from the colon and were freed. These were dissected with blunt technique. Cautery was used to assist dissection and control bleeding. The retroperitoneal fat was assessed. The ureter and gonadal vein were identified. The ureter was isolated and dissection was taken superiorly. This was followed to the renal pelvis. The Renal Artery and Vein were then cleaned and exposed. Clamp placement was assessed and good access was achieved. The perirenal fat anterior to the kidney was then dissected. The mass and surrounding tissues were exposed. The kidney was then further mobilized. The ultrasound probe was placed and the mass further examined. The edges were marked. The Vessels were assessed a final time. 2 x Bulldog clamps were placed on the artery and 1 x Bulldog clamp on the vein. The kidney appropriately blanched. The previously marked margins were used to start the incision into the kidney. The mass was completely excised without evidence of penetrating into the capsule of the mass. The base of resection bed was assessed and small vessels were cauterized. The collecting system did appear to be opened in a small area. A barbed suture was selected and the nephrotomy closed. Care was taken to close the collecting system opening. 3-0 Vicryl sutures were then used to close the edges of the elliptical opening. A total of 3 vicryl sutures were used to close and bolster the edges. At this point, the bulldog clamps were removed. Warm ischemia time, in total, was 12 minutes and 5 seconds. The kidney was full assessed after removal of clamps. No bleeding or other major areas of concern. Weck and Hemolock clips were used to bolster and tightened to approximate the edges. Surgicel hemostatic agent sheets were placed under the liver and on the incised edge. Hemostatic agents were also placed. Hemostatic agent was also placed on the vessels. No major bleeding or other issues. Gerota's tissues were replaced utilizing clips to cover the area. The excised mass was placed in an endocatch bag for removal. The entire dissection space was inspected one final time. No bleeding or injuries or areas of concern were noted. No tumor or other concerning features were noted. At this point, the robot was undocked and moved away from the patient. The port sites were all assessed laparoscopically. The endoscopic bag was moved into the lower senior office support assistant sosa port. The 12 mm port sites were closed with a 1-0 Vicryl suture on a URS needle. The other ports were assessed and no issues observed. The senior office support assistant sosa port incision was opened further exposing fascia which was then opened in order to removed the mass within the bag. A running 1-0 PDS suture was used to close fascia. The skin at each site was closed with a stapler. The area was cleaned and bandages placed on each incision. The patient was cleaned and bandaged. The patient was moved back into the supine position The patient was cleaned, aroused from anesthesia, and transferred to the pacu in stable condition having tolerated the procedure well with no complications. I was present and participated in all aspects of the procedure. Pieter Welch MD was integral in the major portion of the procedure as above. JAXON Dodd was critical in the portions as mentioned above. Will plan to observe postoperatively and monitor. Hampton to be removed in the morning. Plan to monitor patient with followup for staple removal likely in 1-2 weeks with pathology at same time. I attest to the content of the Intraoperative Record and any orders documented therein. Any exceptions are noted below.
[2021-12-01] MEDS: fentaNYL citrate 100 MCG/2 ML VIAL IV PRN ×3 (12:32→13:10)
--- NOTE | 2021-12-01 12:59 | Anesthesiology Progress Note ---
Date of Service December 01, 2021 Anesthesia Post Procedure Vital Signs Vital Signs: Temp Pulse Pulse Resp BP Pulse Ox O2 Del Method 12/01/21 12:50 66 13 145/84 H 96 Nasal Cannula 12/01/21 12:40 72 12 140/85 94 Nasal Cannula 12/01/21 12:30 83 14 136/83 99 Oxymask 12/01/21 12:24 36.1 C L 94 H 18 165/95 H 94 Oxymask 12/01/21 07:29 36.6 C 71 18 143/96 H 100 Room Air O2 Flow Rate 12/01/21 12:50 4 12/01/21 12:40 4 12/01/21 12:30 6 12/01/21 12:24 6 12/01/21 07:29 Pain Intensity Abdomen: Pain Intensity: 6 Transfer of Care Handoff Completed per policy Notes Mental Status: alert / awake / arousable and participated in evaluation Patient Amnestic to Procedure: Yes Nausea / Vomiting: adequately controlled Pain: adequately controlled Airway Patency, RR, SpO2: stable & adequate BP & HR: stable & adequate Hydration State: stable & adequate Anesthetic Complications: no major complications apparent and Pt Satisfied with anesthetic care
[2021-12-01 13:08] LABS: Basophils # (auto) 0.09 K/uL (0-0.2); Basophils % (auto) 0.5 %; Eosinophils # (auto) 0.01 K/uL (0-0.50); Eosinophils % (auto) 0.1 %; Hematocrit (blood only) 37.9 % (40.1-51.0); Hemoglobin 13.3 g/dl (14.0-18.0); Immature Granulocytes # (auto) 0.13 K/uL (0.00-0.02); Immature Granulocytes % (auto) 0.7 %; Lymphocytes % (auto) 5.4 %; Mean Corpuscular Hemoglobin 31.9 pg (25.0-34.0); Mean Corpuscular Hgb Conc 35.1 g/dL (32.0-36.0); Mean Corpuscular Volume 90.9 fL (80.0-100.0); Mean Platelet Volume 10.5 fL (9.4-12.4); Monocytes # (auto) 0.86 K/uL (0.24-0.82); Monocytes % (auto) 4.6 %; Neutrophils # (auto) 16.46 K/uL (1.4-6.5); Neutrophils % (auto) 88.7 %; Platelet Count 262 K/uL (130-400); RDW Coefficient of Variation 12.5 % (11.5-14.5); RDW Standard Deviation 41.2 fL (36.4-46.3); Red Blood Count 4.17 M/uL (4.63-6.08); White Blood Count 18.55 K/ul (4.8-10.8)
[2021-12-01] MEDS ORDERED: DROPERIDOL 5 MG/2 ML VIAL IV STA (13:25)
[2021-12-01 13:30] LABS: BUN Creatinine Ratio 11.6 (10-20); Calcium 8.7 mg/dl (8.5-10.1); Creatinine Clr Calc Pharmacy 56.1 ml/min; Est GFR (African American) 61.3 ml/min; Est GFR (Non-African American) 52.9 ml/min; Potassium 3.9 mmol/L (3.5-5.1)
[2021-12-01] MEDS ORDERED: FAMOTIDINE 20 MG TAB PO PRN (14:51)
[2021-12-01] MEDS ORDERED: oxyCODONE HCL IR 5 MG TAB (IMMEDIATE RELEASE) PO PRN (14:51)
[2021-12-01] MEDS ORDERED: DOXEPIN HCL 10 MG CAPSULE PO PRN (14:51)
[2021-12-01] MEDS ORDERED: MoRPHine SULFATE 2 MG/ML CARP IV PRN ×2 (14:51→14:58)
[2021-12-01] MEDS ORDERED: ACETAMINOPHEN 325 MG TAB PO PRN (14:51)
[2021-12-01] MEDS: ONDANSETRON INJ 2 MG/ML 2 ML VIAL IV PRN (15:05)
[2021-12-01] MEDS: LACTATED RINGER'S 1,000 ML IV SCH (16:53)
[2021-12-01] MEDS: ceFAZolin 2000MG 2,000 MG/15 ML SYR IV SCH ×2 (16:53→23:34)
--- NOTE | 2021-12-01 19:50 | Hospitalist Consultation ---
Date of Consultation December 01, 2021 Assessment & Plan (1) Status post nephrectomy: -Post-op day #0 for left partial nephrectomy and left adhesion lysis with Dr. Castillo today -Currently afebrile, hemodynamically stable, and stable on room air -No reported complications, EBL of 50 cc, general anesthesia -Pain control, periop abx, IV fluids, and DVT PPX per primary team -FU with CBC and BMP in the am to monitor Hgb, renal function, and electrolytes -Ordered prn Narcan in case of narcotic overdose (2) Gastritis: -Continue famotidine and pantoprazole (3) Depression: -Continue Cymbalta (4) Hypertension: -Agree with holding amlodipine until tomorrow to avoid hypotension (5) BPH with obstruction/lower urinary tract symptoms: -Patient currently with lin in place as per Urology's plan and management -Continue Tamsulosin (6) Anxiety: -See depression Plan The patient was discussed with Dr. Vivas at the time of the consult Supervising Physician Co-Signing Physician Notes Patient seen and examined at bedside. During face to face encounter obtained a history and physical examination. I reviewed above note and agree with it. Plan of care discussed with patient and APC Peno. Consult placed for post op management of nephrectomy. Patient having nausea, will add oral Phenergan continue cymbalta for depression History of Present Illness Reason for Consultation: Post-op medical management Requesting Physician: Shemar Castillo, II, DO Attending Physician: Dr. Duc Vivas History of Present Illness Eric Scanlon is a 66 year old male with a PMH significant for recurrent C. diff colitis, Depression, anxiety, hx of bowel resection, panic disorder, HTN, BPH, and left renal mass is presented to the [facility] OR today and is S/P Robotic Assisted Laparoscopic Partial Nephrectomy, Left and Extensive lysis of adhesions with Dr. Shemar Castillo. Per the post-op report, there were no reported intraoperative complications, he received general anesthesia, and EBL was approximately 50 mL. At the time of the exam the patient was sitting on the side of his bed due to his post-anesthesia nausea. He states that he always gets severe nausea after anesthesia, he also has chronic nausea. He denies recent fevers, chills, chest pain, SOB, hematuria and diarrhea. He states that the pain medication is starting to wear off and his procedure site pain is currently an 8/10. He confirms that he does not have a history of diabetes or ADITYA. Allergies Allergy/AdvReac Type Severity Reaction Status Date / Time latex Allergy Mild REDNESS Verified 12/01/21 07:21 Home Medications Medication Instructions Recorded Confirmed Type acetaminophen 500 mg tablet 1,000 mg PO Q6H PRN Pain 03/07/20 12/01/21 History doxepin 10 mg capsule 10 mg PO .COMPLEX #60 caps 12/14/20 12/01/21 Rx duloxetine 20 mg capsule,delayed 20 mg PO DAILY #30 caps 06/02/21 12/01/21 Rx release (Cymbalta) promethazine 25 mg tablet 25 mg PO Q6H PRN Nausea #30 tabs 09/16/21 12/01/21 Rx tamsulosin 0.4 mg capsule (Flomax) 0.4 mg PO DAILY #30 caps 11/21/21 12/01/21 Rx amlodipine 5 mg tablet (Norvasc) 5 mg PO QAM 11/28/21 12/01/21 History dexlansoprazole 60 mg 60 mg PO QAM 11/28/21 12/01/21 History capsule,biphase delayed release (Dexilant) famotidine 20 mg tablet (Pepcid) 20 mg PO DAILY PRN Acid Reflux 11/28/21 12/01/21 History oxybutynin chloride 5 mg 5 mg PO QAM 11/28/21 12/01/21 History tablet,extended release 24 hr Patient History Medical History Acid reflux Actinic keratosis Anemia BPH with obstruction/lower urinary tract symptoms Depression with anxiety Diverticular disease Duodenitis Elevated PSA Hiatal hernia History of anesthesia reaction r/t airway - awaking-"DIFFICULTY REMOVING AIRWAY" X 1 History of COVID-14 June 2021 > not hospitalized > had stomach issues Hypertension Insomnia Irritable bowel syndrome Kidney stone at present Nausea CHRONIC Nephrolithiasis Panic disorder without agoraphobia Pericardial cyst just monitoring Peripheral neuropathy Vitamin B12 deficiency Surgical History History of arthroscopic knee surgery right History of bowel resection d/t diverticulitis - [place] - 2002 History of colonoscopy History of esophagogastroduodenoscopy (EGD) History of hemorrhoidectomy History of rectal fissure X 2 REPAIR Hx of appendectomy Hx of cholecystectomy Family History Grandmother (Paternal) Family history of diabetes mellitus Uncle Family history of diabetes mellitus Other No family history of adverse response to anesthesia Social History Smoking Status: Never smoker Second Hand Exposure: No; Do You Dip or Chew Tobacco: No (quit several yrs ago); Tobacco Cessation Education Requested by Patient: No Hx Alcohol Use: No Hx Substance Use: Yes Substance Use Type Other:: marijuana use few times per week > advised npo status Preferred Language: Malay Communication Ability: Effective Revenue Tax Specialist Required: No Beliefs That Will Affect Care: None Current Living Situation: Spouse Current Living Situation Comment: Lives with and son Other Information That Helps Us Care for You: No Feels Safe at Home: Yes Safety Concerns: Feels Safe At This Time Assistive Devices: None Assistive Devices Comment: partial to top Review of Systems Review of Systems: Denies current fever, chills, headache, changes in vision, hearing, taste, and smell, chest pain, SOB, cough,diarrhea, hematemesis, melena, dysuria, hematuria, and recent falls. All systems have been reviewed and are otherwise negative. Physical Exam Physical Exam: Physical Exam: General: In mild distress due to nausea, stated age, well-nourished, good hygiene, non-toxic appearing HEENT: Normocephalic, atraumatic, no scleral icterus, pupils around round, symmetrical, and reactive to light, moist mucus membranes, trachea midline, no thyromegaly Chest/Pulm: No respiratory distress, symmetrical chest expansion, clear breath sounds throughout Cardiac: tachycardic rate, regular rhythm, no murmurs noted Abdomen: Patient with procedure site currently bandaged and without signs of bleeding, Negative for ascites and bruising, normoactive bowel sounds, soft, tender to palpation over the surgical site : Currently with Lin in place, draining clear, yellow urine Musculoskeletal: Symmetrical and without signs of acute trauma, upper and lower extremities with full ROM, no atrophy, spasticity, or flaccidity Extremities: Radial, dorsalis pedis, and posterior tibial pulses are intact and symmetrical, no edema noted in the BL LE's Skin: Warm, dry, no rashes , lesions, or scars noted Neuro: Alert and oriented to person, place, month, year, and president, no focal defects, CN II-XII tested and intact, finger to nose test negative, no tremors noted Psych: No acute distress, calm and cooperative during the exam Results & Data Results & Data ([facility]) Vital Signs (Past 12 Hours) Vital Signs Temp Pulse Pulse Resp BP Pulse Ox O2 Del Method 12/01/21 18:08 95 Room Air 12/01/21 17:32 36.7 C 92 H 16 138/83 97 12/01/21 14:45 86 18 157/88 H 97 Nasal Cannula 12/01/21 15:35 72 18 143/80 H 95 12/01/21 14:30 73 24 128/75 97 Nasal Cannula 12/01/21 14:00 87 14 156/92 H 97 Nasal Cannula 12/01/21 13:30 36.0 C L 79 19 148/86 H 98 Nasal Cannula 12/01/21 13:10 68 13 143/83 H 100 Nasal Cannula 12/01/21 13:20 77 14 152/95 H 97 Nasal Cannula 12/01/21 13:00 61 12 133/83 96 Nasal Cannula 12/01/21 12:50 66 13 145/84 H 96 Nasal Cannula 12/01/21 12:40 72 12 140/85 94 Nasal Cannula 12/01/21 12:30 83 14 136/83 99 Oxymask 12/01/21 12:24 36.1 C L 94 H 18 165/95 H 94 Oxymask O2 Flow Rate 12/01/21 18:08 12/01/21 17:32 12/01/21 14:45 2 12/01/21 15:35 2 12/01/21 14:30 2 12/01/21 14:00 2 12/01/21 13:30 4 12/01/21 13:10 4 12/01/21 13:20 4 12/01/21 13:00 4 12/01/21 12:50 4 12/01/21 12:40 4 12/01/21 12:30 6 12/01/21 12:24 6 Laboratory Results Abnormal lab results 12/01/21 12/01/21 Range/Units 12:46 12:46 WBC 18.55 H (4.8-10.8) K/ul RBC 4.17 L (4.63-6.08) M/uL Hgb 13.3 L (14.0-18.0) g/dl Hct 37.9 L (40.1-51.0) % Neut # (Auto) 16.46 H (1.4-6.5) K/uL Lymph # (Auto) 1.00 L (1.2-3.4) K/uL [place] # (Auto) 0.86 H (0.24-0.82) K/uL Immature Gran # (Auto) 0.13 H (0.00-0.02) K/uL Glucose 183 H (70-99(Fasting)) mg/dl ECG Additional Comments: NO ECG available for this visit. PG Care Time/CCT Total # of Minutes Spent Total Time Spent with Patient: Total time spent is greater than 50% in coordination of care (as documented) at patient's floor/unit and/or counseling patient: C[place] [address] Inpt Consult Level 5 Patient Type Established Medical Decision Making Moderate Complexity Diagnoses Status post nephrectomy Z90.5 Gastritis K29.70 Depression F32.9 Hypertension I10 BPH with obstruction/lower urinary tract symptoms N40.1; N13.8 Anxiety F41.9
[2021-12-01] MEDS ORDERED: NALOXONE HCL 0.4 MG/1 ML VIAL/CARP IV PRN (20:22)
[2021-12-01] MEDS: PROMETHAZINE HCL 25 MG TAB PO PRN (20:54)
[2021-12-01] MEDS: oxyCODONE HCL IR 5 MG TAB (IMMEDIATE RELEASE) PO PRN (22:02)
[2021-12-01] MEDS: DOCUSATE SODIUM 100 MG CAP PO SCH (22:02)
[2021-12-01] MEDS: HEPARIN SOD 5,000 UNIT/0.5 ML VIAL SQ SCH (22:02)
[2021-12-02] MEDS: ONDANSETRON INJ 2 MG/ML 2 ML VIAL IV PRN ×2 (00:38→11:23)
[2021-12-02] MEDS: LACTATED RINGER'S 1,000 ML IV SCH ×3 (02:12→20:14)
[2021-12-02] MEDS: oxyCODONE HCL IR 5 MG TAB (IMMEDIATE RELEASE) PO PRN ×3 (05:09→20:14)
[2021-12-02] MEDS: PROMETHAZINE HCL 25 MG TAB PO PRN (05:11)
[2021-12-02 08:00] LABS: Basophils # (auto) 0.12 K/uL (0-0.2); Basophils % (auto) 0.9 %; Eosinophils # (auto) 0.05 K/uL (0-0.50); Eosinophils % (auto) 0.4 %; Hematocrit (blood only) 32.6 % (40.1-51.0); Hemoglobin 11.7 g/dl (14.0-18.0); Immature Granulocytes # (auto) 0.07 K/uL (0.00-0.02); Immature Granulocytes % (auto) 0.5 %; Lymphocytes # (auto) 1.04 K/uL (1.2-3.4); Lymphocytes % (auto) 8.1 %; Mean Corpuscular Hgb Conc 35.9 g/dL (32.0-36.0); Mean Corpuscular Volume 89.1 fL (80.0-100.0); Monocytes # (auto) 1.73 K/uL (0.24-0.82); Monocytes % (auto) 13.4 %; Neutrophils # (auto) 9.87 K/uL (1.4-6.5); Neutrophils % (auto) 76.7 %; Platelet Count 227 K/uL (130-400); RDW Coefficient of Variation 12.7 % (11.5-14.5); RDW Standard Deviation 41.3 fL (36.4-46.3); Red Blood Count 3.66 M/uL (4.63-6.08); White Blood Count 12.88 K/ul (4.8-10.8)
[2021-12-02 08:32] LABS: BUN Creatinine Ratio 11.3 (10-20); Calcium 8.5 mg/dl (8.5-10.1); Creatinine Clr Calc Pharmacy 54.9 ml/min; Est GFR (African American) 59.7 ml/min; Est GFR (Non-African American) 51.5 ml/min; Potassium 3.7 mmol/L (3.5-5.1)
[2021-12-02] MEDS: amLODIPine BESYLATE 5 MG TAB PO SCH (08:43)
[2021-12-02] MEDS: TAMSULOSIN HCL 0.4 MG CAP PO SCH (08:43)
[2021-12-02] MEDS: DULoxetine HCL 20 MG CAP PO SCH (08:43)
[2021-12-02] MEDS: PANTOprazole 40 MG TAB PO SCH (08:43)
[2021-12-02] MEDS: HEPARIN SOD 5,000 UNIT/0.5 ML VIAL SQ SCH ×2 (08:43→20:10)
[2021-12-02] MEDS: DOCUSATE SODIUM 100 MG CAP PO SCH ×2 (08:43→20:11)
--- NOTE | 2021-12-02 09:23 | Hospitalist Progress Note ---
Date of Service December 02, 2021 Assessment & Plan (1) Status post nephrectomy: Plan: POD#1 s/p Robotic Assisted Laparoscopic Partial Nephrectomy, Left. Extensive lysis of adhesions.(Left) - Shemar Castillo, DO on 12/01 EBL 50cc Path pending Nausea post op -- discussed likely would benefit scopolamine in future w/ anesthesia and always having nausea Pain management/PT/OT/DVT proph per primary service WBC 12.8k post-op, afebrile Remains on LR @ 100cc/hr -- slight dehydration on exam but suspect could finish after current bag. RN to contact primary service Of note, with nausea --> he states also on pepcid at home. Ordered IVP x 1 now, scheduled daily while inpatient Also discussed possible gastroparesis, follows with GI. Need outpt f/u GES Monitoring overnight with hopeful d/c in AM per patient (2) Gastritis: Plan: Continue protonix while inpatient , on dexilant 60mg outpatient also endosed lots of belching -- discussed pepcid --> patient also on pepcid outpatient Added pepcid IVP x 1 now given nausea/reflux symptoms, scheduled daily while inpatient Did not realize, however GI also consulted inpatient --> reviewed consultation and agreed to pepcid 20mg standing and trial gastroparesis diet outpatient gastric emptying study for further evaluation (3) Depression: Plan: anxiety/depression -Continue Cymbalta (4) Hypertension: Plan: Held amlodipine, resumed this AM BP stable 115/66 (5) BPH with obstruction/lower urinary tract symptoms: Plan: Lin removed this morning per urology 30 min prior to eval had not yet voided monitor UOP continue flomax (6) Anxiety: Plan continued inpatient stay for nausea/pain control but hopeful for d/c tomorrow Hospitalist service will follow along peripherally with chart checks but anticipate stable for d/c in AM if pain controlled/tolerating diet and labs stable. Please call with any questions/concerns. Admission and Anticipated Discharge Date Admission Date: December 01, 2021 Subjective evaluated around lunch doing well having some pain, controlled with ordered medications got something recently for such as well as zofran for nausea. usually Phenergan works, took pill without much effect did have episode of emesis last night belching but no BM. does take pepcid on occasion at home but hasn't gotten, will order. typically on daily Dexilant 60mg, on protonix 40mg while inpatient. discussed scopolamine patch for next time w/ anesthesia to prevent nausea post- procedure given chronic issues. lin removed about thirty minutes ago, no voiding yet or increased abdominal distention/feeling like he needs to urinate and will monitor. no fever/chills, chest pain or shortness of breath to be here this afternoon, hopeful to get up and ambulating more plans on staying overnight given nausea/pain control and plan for d/c tomorrow questions/concerns addressed at this time Review of Systems Review of Systems: All systems reviewed & are unremarkable except as noted in HPI & below Physical Exam Physical Exam: General: WN elderly male sitting up in bed, appears older than stated age, NAD HEENT: head normocephalic, atraumatic, mm DRY, trachea midline without deviation Resp: CTAB, no w/c, on room air CV: RRR, no m/r/g, no pitting edema/calf tenderness GI: hypoactive BS, appropriately tender around incisions, dressing c/d/i, voluntary guarding, no rigidity : NO LIN MSK/Neuro: moves all extremities, no facial droop, no focal deficit Psych: AO to person/place/event, cooperative Results & Data Results & Data ([facility]) Vital Signs (Past 12 Hours) Vital Signs Temp Pulse Resp BP Pulse Ox O2 Del Method 12/02/21 07:37 36.9 C 82 18 125/72 95 Room Air 12/02/21 05:10 36.9 C 87 22 127/71 95 Room Air 12/02/21 00:44 37.1 C 92 H 18 146/81 H 95 Room Air 12/01/21 23:28 36.7 C 90 22 128/85 97 Room Air Laboratory Results 12/02/21 12/02/21 Range/Units 07:14 07:14 WBC 12.88 H (4.8-10.8) K/ul RBC 3.66 L (4.63-6.08) M/uL Hgb 11.7 L (14.0-18.0) g/dl Hct 32.6 L (40.1-51.0) % MCV 89.1 (80.0-100.0) fL MCH 32.0 (25.0-34.0) pg MCHC 35.9 (32.0-36.0) g/dL RDW Std Deviation 41.3 (36.4-46.3) fL RDW Coeff of Suzy 12.7 (11.5-14.5) % Plt Count 227 (130-400) K/uL MPV 11.0 (9.4-12.4) fL Immature Gran % (Auto) 0.5 % Neut % (Auto) 76.7 % Lymph % (Auto) 8.1 % [place] % (Auto) 13.4 % Eos % (Auto) 0.4 % Baso % (Auto) 0.9 % Neut # (Auto) 9.87 H (1.4-6.5) K/uL Lymph # (Auto) 1.04 L (1.2-3.4) K/uL [place] # (Auto) 1.73 H (0.24-0.82) K/uL Eos # (Auto) 0.05 (0-0.50) K/uL Baso # (Auto) 0.12 (0-0.2) K/uL Immature Gran # (Auto) 0.07 H (0.00-0.02) K/uL Sodium 137 (136-145) mmol/L Potassium 3.7 (3.5-5.1) mmol/L Chloride 105 (98-107) mmol/L Carbon Dioxide 24 (21-32) mmol/L Anion Gap 8 (3-11) BUN 16 (6-23) mg/dl Creatinine 1.41 H (0.6-1.4) mg/dl Est Cr Clr Drug Dosing 54.9 ml/min Est GFR ( Amer) 59.7 ml/min Est GFR (Non-Af Amer) 51.5 ml/min BUN/Creatinine Ratio 11.3 (10-20) Glucose 98 (70-99(Fasting)) mg/dl Calcium 8.5 (8.5-10.1) mg/dl PG Care Time/CCT Total # of Minutes Spent Total Time Spent with Patient: Total time spent is greater than 50% in coordination of care (as documented) at patient's floor/unit and/or counseling patient: Coding Level of Care Code 79845 Subseq Hosp Care Lvl 3 Diagnoses Status post nephrectomy Z90.5 Gastritis K29.70 Depression F32.9 Hypertension I10 BPH with obstruction/lower urinary tract symptoms N40.1; N13.8 Anxiety F41.9
--- NOTE | 2021-12-02 09:41 | Urology Progress Note ---
Date of Service December 02, 2021 Assessment & Plan (1) Renal lesion: (2) Status post nephrectomy: Plan - POD #1 s/p Robotic Assisted Laparoscopic Left Partial Nephrectomy. - Doing well, progressing as expected. - Afebrile and hemodynamically stable. - Labs reviewed- Wbc 12.88, Hemoglobin 11.7, Creatinine up to 1.41 as expected. - Urine is clear, output appears adequate. - Tolerating diet. - Incisions appropriate. Plan- - Discontinue [place] catheter this morning and monitor for void. - Continue clear liquid diet. - Encourage ambulation. - Continue supportive care and prn pain management. - Will reassess after lunch, likely home later today or tomorrow pending patient progression. - Appreciate medicine consultation. Admission and Anticipated Discharge Date Admission Date: December 01, 2021 Subjective Patient examined at bedside this AM. Awake, resting in bed on arrival. No acute distress. [place] catheter intact, draining clear yellow urine. Denies significant pain. Notes some mild abd discomfort, noticed this more when sitting in the chair last evening. He did have an episode of nausea and vomiting overnight but has felt better since then. No fevers or chills. Tolerated clear liquid diet for breakfast and prefers to continue with this. Ambulated without issue yesterday. Review of Systems Constitutional: as per Subjective / HPI Gastrointestinal: as per Subjective / HPI Genitourinary: + as per Subjective / HPI Physical Exam Constitutional: no acute distress Respiratory: no respiratory distress and no labored breathing Gastrointestinal (Abdomen): Percussion/Palpation: + abdomen tender (Mild generalized tenderness with palpation) and abdomen soft; no guarding and abdomen not rigid Incisions appropriate, ledy intact. Neurologic: awake Psychiatric: Orientation: alert and oriented x 3 Genitourinary: Urine is clear Results & Data ([facility]) Vital Signs (Past 12 Hours) Vital Signs Temp Pulse Resp BP Pulse Ox O2 Del Method 12/02/21 07:37 36.9 C 82 18 125/72 95 Room Air 12/02/21 05:10 36.9 C 87 22 127/71 95 Room Air 12/02/21 00:44 37.1 C 92 H 18 146/81 H 95 Room Air 12/01/21 23:28 36.7 C 90 22 128/85 97 Room Air PG Care Time/CCT Total # of Minutes Spent Total Time Spent with Patient: Total time spent is greater than 50% in coordination of care (as documented) at patient's floor/unit and/or counseling patient: Coding Level of Care Code None Diagnoses Renal lesion N28.9 Status post nephrectomy Z90.5
[2021-12-02] MEDS ORDERED: FAMOTIDINE 20 MG in SYRINGE 3 ML IV ONE (12:30)
--- NOTE | 2021-12-02 13:49 | Gastrointestinal Consultation ---
Date of Consultation December 02, 2021 Assessment & Plan (1) Chronic nausea: Plan 66 yo male s/p left kidney surgery here with worsening chronic nausea; concern for gastroparesis, exacerbation of gastritis recs: -- continue PPI --add pepcid 20 mg qhs standing -- can try a gastroparesis diet empirically, low fat, low fiber, small meals 4 times a day --will need an outpatient gastric emptying study to further evaluate --zofran prn for now Thank you for allowing me to participate in the care of this patient. History of Present Illness Attending Physician: Shemar Castillo, II, DO History of Present Illness 66 yo male here with worsening nausea. He is s/p kidney surgery 12/01. Has had chronic nausea which we follow him for, on PPI as an outpatient for that and gastritis. When he gets his nausea he does not vomit but just doesn't have an appetite. Has not had a recent GES. CBC and CMP reviewed. Allergies Allergy/AdvReac Type Severity Reaction Status Date / Time latex Allergy Mild REDNESS Verified 12/01/21 07:21 Home Medications Medication Instructions Recorded Confirmed Type acetaminophen 500 mg tablet 1,000 mg PO Q6H PRN Pain 03/07/20 12/01/21 History doxepin 10 mg capsule 10 mg PO .COMPLEX #60 caps 12/14/20 12/01/21 Rx duloxetine 20 mg capsule,delayed 20 mg PO DAILY #30 caps 06/02/21 12/01/21 Rx release (Cymbalta) promethazine 25 mg tablet 25 mg PO Q6H PRN Nausea #30 tabs 09/16/21 12/01/21 Rx tamsulosin 0.4 mg capsule (Flomax) 0.4 mg PO DAILY #30 caps 11/21/21 12/01/21 Rx amlodipine 5 mg tablet (Norvasc) 5 mg PO QAM 11/28/21 12/01/21 History dexlansoprazole 60 mg 60 mg PO QAM 11/28/21 12/01/21 History capsule,biphase delayed release (Dexilant) famotidine 20 mg tablet (Pepcid) 20 mg PO DAILY PRN Acid Reflux 11/28/21 12/01/21 History oxybutynin chloride 5 mg 5 mg PO QAM 11/28/21 12/01/21 History tablet,extended release 24 hr Patient History Medical History Acid reflux Actinic keratosis Anemia BPH with obstruction/lower urinary tract symptoms Depression with anxiety Diverticular disease Duodenitis Elevated PSA Hiatal hernia History of anesthesia reaction r/t airway - awaking-"DIFFICULTY REMOVING AIRWAY" X 1 History of COVID-14 June 2021 > not hospitalized > had stomach issues Hypertension Insomnia Irritable bowel syndrome Kidney stone at present Nausea CHRONIC Nephrolithiasis Panic disorder without agoraphobia Pericardial cyst just monitoring Peripheral neuropathy Vitamin B12 deficiency Surgical History History of arthroscopic knee surgery right History of bowel resection d/t diverticulitis - [place] - 2002 History of colonoscopy History of esophagogastroduodenoscopy (EGD) History of hemorrhoidectomy History of rectal fissure X 2 REPAIR Hx of appendectomy Hx of cholecystectomy Family History Grandmother (Paternal) Family history of diabetes mellitus Uncle Family history of diabetes mellitus Other No family history of adverse response to anesthesia Social History Smoking Status: Never smoker Second Hand Exposure: No; Hx Alcohol Use: No Hx Substance Use: Yes Substance Use Type Other:: marijuana use few times per week > advised npo status Preferred Language: Iranian Communication Ability: Effective Leadership Program Associate Required: No Beliefs That Will Affect Care: None Current Living Situation: Spouse Current Living Situation Comment: Lives with and son Feels Safe at Home: Yes Assistive Devices: None Review of Systems Constitutional: no fever, no chills and no weight loss Eyes: as per Subjective / HPI Ear, Nose, Mouth, Throat: as per Subjective / HPI Respiratory: no dyspnea and no dyspnea on exertion Cardiovascular: no chest pain and no palpitations Gastrointestinal: as per Subjective / HPI Musculoskeletal: no joint pain and no swelling Integumentary: no rash and no lesions Neurologic: no numbness and no paresthesia Psychiatric: no depression and no anxiety Endocrine: no fatigue Hematologic / Lymphatic: no easy bleeding and no easy bruising Physical Exam Constitutional: WD/WN, vitals as above Eyes: EOM intact bilaterally Neck: normal visual inspection Respiratory: normal respiratory effort, lungs clear to auscultation Cardiovascular: RRR, no murmur, no edema Gastrointestinal (Abdomen): Inspection/Auscultation: abdomen normal to inspection; abdomen not distended Percussion/Palpation: abdomen soft; abdomen nontender and no hepatosplenomegaly Musculoskeletal: Extremities: no cyanosis Gait: normal gait Skin: no rashes, warm and dry Neurologic: moves all extremities Psychiatric: A+Ox3, euthymic affect Results & Data ([facility]) Vital Signs (Past 12 Hours) Vital Signs Temp Pulse Resp BP Pulse Ox O2 Del Method 12/02/21 07:37 36.9 C 82 18 125/72 95 Room Air 12/02/21 05:10 36.9 C 87 22 127/71 95 Room Air PG Care Time/CCT Total # of Minutes Spent Total Time Spent with Patient: Total time spent is greater than 50% in coordination of care (as documented) at patient's floor/unit and/or counseling patient: Coding Level of Care Code 31672 Initial Inpt Care Lvl 3 Diagnoses Chronic nausea R11.0
[2021-12-02] MEDS: PROMETHAZINE HCL 12.5 MG in SODIUM CHLORIDE 0.9% 50 ML IV PRN (15:49)
[2021-12-03] MEDS: oxyCODONE HCL IR 5 MG TAB (IMMEDIATE RELEASE) PO PRN ×4 (00:17→19:49)
[2021-12-03] MEDS: ONDANSETRON INJ 2 MG/ML 2 ML VIAL IV PRN ×2 (00:17→06:24)
--- NOTE | 2021-12-03 06:19 | Urology Progress Note ---
Date of Service December 03, 2021 Assessment & Plan (1) Kidney lesion, [place], left: Plan 66-year-old male who is status post robotic left partial nephrectomy on 12/01/2021 Patient was abdominal pain and nausea, not unexpected post procedurally and also with his history. Continue pain regimen. GI consulted, patient is currently on Pepcid as well as a PPI. We can advance him to a gastroparesis diet today Medicine consult as well, appreciate their recommendations Discussed with patient importance of ambulating as much as possible today [place] catheter out and voiding spontaneously Labs stable Anticipate patient will be here through tomorrow Admission and Anticipated Discharge Date Admission Date: December 01, 2021 Subjective Patient is postop day 2 from robot-assisted left partial nephrectomy. Did fairly well yesterday. [place] catheter was removed. Labs were stable. Hemodynamically stable and afebrile. Urine output appropriate. Labs pending this morning. Patient reports some abdominal pain and nausea. He does have a history of chronic nausea. Denies any vomiting. He is tolerating liquids. He has been ambulating minimally. Does not feel ready to go home. Voiding spontaneously. Review of Systems Review of Systems: 14 point review of systems negative outside of what is listed above in HPI Physical Exam Physical Exam: General: Alert and oriented, no acute distress HEENT: Normocephalic, mucous membranes moist Pulmonary: Nonlabored respirations Abdomen: soft, mildly tender, mildly distended. Incisions clean dry and intact. Extremities: Moves all 4 spontaneously Neuro: No gross deficits Skin: Warm, dry, no rashes noted Results & Data ([facility]) Vital Signs (Past 12 Hours) Vital Signs Temp Pulse Resp BP Pulse Ox O2 Del Method 12/02/21 23:26 37.4 C 82 18 119/69 90 12/02/21 20:10 Room Air PG Care Time/CCT Total # of Minutes Spent Total Time Spent with Patient: Total time spent is greater than 50% in coordination of care (as documented) at patient's floor/unit and/or counseling patient: Coding Level of Care Code 99452 Subseq Hosp Care Lvl 2 Diagnoses Kidney lesion, [place], left N28.9
[2021-12-03] MEDS: LACTATED RINGER'S 1,000 ML IV SCH (06:23)
[2021-12-03 07:46] LABS: Basophils # (auto) 0.14 K/uL (0-0.2); Basophils % (auto) 1.1 %; Eosinophils # (auto) 0.17 K/uL (0-0.50); Eosinophils % (auto) 1.4 %; Hematocrit (blood only) 32.9 % (40.1-51.0); Hemoglobin 11.6 g/dl (14.0-18.0); Immature Granulocytes # (auto) 0.09 K/uL (0.00-0.02); Immature Granulocytes % (auto) 0.7 %; Lymphocytes # (auto) 0.87 K/uL (1.2-3.4); Mean Corpuscular Hemoglobin 32.1 pg (25.0-34.0); Mean Corpuscular Hgb Conc 35.3 g/dL (32.0-36.0); Mean Corpuscular Volume 91.1 fL (80.0-100.0); Monocytes # (auto) 1.41 K/uL (0.24-0.82); Monocytes % (auto) 11.4 %; Neutrophils # (auto) 9.67 K/uL (1.4-6.5); Neutrophils % (auto) 78.4 %; Platelet Count 191 K/uL (130-400); RDW Coefficient of Variation 12.5 % (11.5-14.5); RDW Standard Deviation 41.6 fL (36.4-46.3); Red Blood Count 3.61 M/uL (4.63-6.08); White Blood Count 12.35 K/ul (4.8-10.8)
[2021-12-03] MEDS: PANTOprazole 40 MG TAB PO SCH (07:49)
[2021-12-03] MEDS: DULoxetine HCL 20 MG CAP PO SCH (07:49)
[2021-12-03] MEDS: amLODIPine BESYLATE 5 MG TAB PO SCH (07:49)
[2021-12-03] MEDS: TAMSULOSIN HCL 0.4 MG CAP PO SCH (07:49)
[2021-12-03] MEDS: DOCUSATE SODIUM 100 MG CAP PO SCH ×2 (07:49→19:51)
[2021-12-03] MEDS: HEPARIN SOD 5,000 UNIT/0.5 ML VIAL SQ SCH ×2 (07:50→19:51)
[2021-12-03] MEDS: FAMOTIDINE 20 MG in SYRINGE 3 ML IV SCH (07:53)
[2021-12-03 08:13] LABS: BUN Creatinine Ratio 9.3 (10-20); Calcium 8.6 mg/dl (8.5-10.1); Creatinine Clr Calc Pharmacy 55.3 ml/min; Est GFR (African American) 60.3 ml/min; Magnesium 1.4 mg/dl (1.7-2.4); Potassium 3.7 mmol/L (3.5-5.1)
--- NOTE | 2021-12-03 09:23 | Hospitalist Progress Note ---
Date of Service December 03, 2021 Assessment & Plan (1) Status post nephrectomy: Plan: POD#2 s/p Robotic Assisted Laparoscopic Partial Nephrectomy, Left. Extensive lysis of adhesions.(Left) - Shemar Castillo, DO on 12/01 EBL 50cc Path pending Nausea post op -- discussed likely would benefit scopolamine in future w/ anesthesia and always having nausea. Pain management/PT/OT/DVT proph per primary service WBC stable, afebrile. IVF decreased this morning, pushing oral fluids and tolerating advancement of diet with antiemetics Discussed with Dr Welch and will d/c IVF now (11:00am), encouraged continued PO hydration Checked mag given nausea/cramping at baseline (chronic issue) -Mag LOW 1.4 -> IV replacement ordered, repeat lab to monitor -Consider PO mag oxide at d/c -Scheduled pepcid, ordered gastroparesis diet per GI. Need outpt GES with GI B12 also checked given prior reported history --> LOW 155 -IM replacement ordered for today/tomorrow, recommended to continue PO at discharge Patient continued inpatient stay for pain control/nausea (no further vomiting) but hopeful for d/c in AM as those symptoms improving. (2) Hypomagnesemia: Plan: Checked given abd cramping/PPI use Mag 1.4 on AM labs, IV replacement ordered monitor on repeat (3) B12 deficiency: Plan: checked given prior listed but not on supplementation, also lists hx substance abuse B12 level back at 155 --> IM replacement ordered for today/tomorrow while inpatient, recommend continuing PO at discharge, consider IM injections with PCP Also consulted PT to ensure safety to return home as not out of bed much since surgery (4) Gastritis: Plan: Continue protonix while inpatient , on dexilant 60mg outpatient also endorsed lots of belching -- discussed pepcid --> patient also on pepcid outpatient Added pepcid IVP x 1 given nausea/reflux symptoms, scheduled daily while inpatient Did not realize, however GI also consulted inpatient --> reviewed consultation and agreed to pepcid 20mg standing and trial gastroparesis diet outpatient gastric emptying study for further evaluation Consider carafate , but defer to GI to start Of note, uses marijuana few times per week, consider [facility] as contributing as well if issues after mag replacement (5) Depression: Plan: anxiety/depression -Continue Cymbalta (6) Hypertension: Plan: Continue amlodipine BP 143/77 in setting of pain (7) BPH with obstruction/lower urinary tract symptoms: Plan: Voiding since removal of bean continue flomax (8) Anxiety: Plan continued inpatient stay for pain/nausea IV mag/IM b12 ordered D/c IVF Hospitalist service will check labs in AM but officially sign off. Messaged Dr Welch to message if any questions/concerns. Thank you for allowing hospitalist service to participate in the care of Mr Scanlon Admission and Anticipated Discharge Date Admission Date: December 01, 2021 Subjective Patient evaluated this morning. Some nausea but improved with phenergan. Discussed low mag/replacement. Should assist. Passing gas but no BM. States was up ambulating earlier. Pain controlled with ordered medications. Urine clearing up and drinking plenty of water, wanting to know if IVF need to be continued. Will check with Urology to see about d/c IVF. He would feel more comfortable waiting overnight and d/c in AM. to stay overnight [place]. Review of Systems Review of Systems: All systems reviewed & are unremarkable except as noted in HPI & below Physical Exam Physical Exam: General: WN elderly male sitting up in bed, appears older than stated age, NAD, at bedside HEENT: head normocephalic, atraumatic, mm MUCH IMPROVED, minimal dehydration. trachea midline without deviation Resp: CTAB, diminished in the bases, on room air, faint end expiratory wheezing, on room air CV: RRR, no m/r/g, no pitting edema/calf tenderness GI: + BS throughout, appropriately tender around incisions, dressing c/d/i, no shadowing, voluntary guarding, no rigidity : NO BEAN MSK/Neuro: moves all extremities, no facial droop, no focal deficit Psych: AO to person/place/event, cooperative Results & Data Results & Data ([facility]) Vital Signs (Past 12 Hours) Vital Signs Temp Pulse Resp BP BP Pulse Ox O2 Del Method 12/03/21 07:37 36.9 C 80 20 143/77 H 90 Room Air 12/02/21 23:26 37.4 C 82 18 119/69 90 Laboratory Results 12/03/21 12/03/21 12/03/21 Range/Units 07:12 07:12 07:12 WBC 12.35 H (4.8-10.8) K/ul RBC 3.61 L (4.63-6.08) M/uL Hgb 11.6 L (14.0-18.0) g/dl Hct 32.9 L (40.1-51.0) % MCV 91.1 (80.0-100.0) fL MCH 32.1 (25.0-34.0) pg MCHC 35.3 (32.0-36.0) g/dL RDW Std Deviation 41.6 (36.4-46.3) fL RDW Coeff of Suzy 12.5 (11.5-14.5) % Plt Count 191 (130-400) K/uL MPV 11.0 (9.4-12.4) fL Immature Gran % (Auto) 0.7 % Neut % (Auto) 78.4 % Lymph % (Auto) 7.0 % [place] % (Auto) 11.4 % Eos % (Auto) 1.4 % Baso % (Auto) 1.1 % Neut # (Auto) 9.67 H (1.4-6.5) K/uL Lymph # (Auto) 0.87 L (1.2-3.4) K/uL [place] # (Auto) 1.41 H (0.24-0.82) K/uL Eos # (Auto) 0.17 (0-0.50) K/uL Baso # (Auto) 0.14 (0-0.2) K/uL Immature Gran # (Auto) 0.09 H (0.00-0.02) K/uL Sodium 136 (136-145) mmol/L Potassium 3.7 (3.5-5.1) mmol/L Chloride 103 (98-107) mmol/L Carbon Dioxide 27 (21-32) mmol/L Anion Gap 6 (3-11) BUN 13 (6-23) mg/dl Creatinine 1.40 (0.6-1.4) mg/dl Est Cr Clr Drug Dosing 55.3 ml/min Est GFR ( Amer) 60.3 ml/min Est GFR (Non-Af Amer) 52.0 ml/min BUN/Creatinine Ratio 9.3 L (10-20) Glucose 97 (70-99(Fasting)) mg/dl Calcium 8.6 (8.5-10.1) mg/dl Magnesium 1.4 L (1.7-2.4) mg/dl Vitamin B12 155 L (180-914) pg/ml PG Care Time/CCT Total # of Minutes Spent Total Time Spent with Patient: Total time spent is greater than 50% in coordination of care (as documented) at patient's floor/unit and/or counseling patient: Coding Level of Care Code 28165 Subseq Hosp Care Lvl 3 Diagnoses Status post nephrectomy Z90.5 Hypomagnesemia E83.42 B12 deficiency E53.8 Gastritis K29.70 Depression F32.9 Hypertension I10 BPH with obstruction/lower urinary tract symptoms N40.1; N13.8 Anxiety F41.9
[2021-12-03] MEDS: MAGNESIUM SULFATE / D5W 1 GM/100 ML BAG IV SCH ×3 (10:37→14:24)
[2021-12-03] MEDS: PROMETHAZINE HCL 12.5 MG in SODIUM CHLORIDE 0.9% 50 ML IV PRN (12:05)
[2021-12-03] MEDS: CYANOCOBALAMIN 1000 MCG/ML VIAL IM SCH (12:25)
--- NOTE | 2021-12-03 15:46 | XRay Report ---
XR chest 1V portable CLINICAL HISTORY: Shortness of breath, eval volume overload. Status post partial left nephrectomy on December 01, 2021. COMPARISON STUDY: Chest radiograph November 25, 2021. FINDINGS: Surgical skin ledy are noted. Moderate pneumoperitoneum is noted. This is expected in th e early postoperative setting. There is mild elevation of the right hemidiaphragm. There is no eviden ce for pulmonary edema. Cardiac size is at the upper limits of normal. There is hazy left basilar opa city. IMPRESSION: 1. Pneumoperitoneum, likely postsurgical. 2. Low lung volumes with elevation of the right hemidiaphragm. Hazy left basilar opacity which favors atelectasis or less likely an infectious process. 3. No evidence for pulmonary edema. ACT 112: Negative or not required by law. Electronically signed by: Oscar Alberts M.D. 12/03/2021 3:45 PM
[2021-12-03] MEDS ORDERED: ALBUTEROL HFA 8 GM INHALER INH ONE (16:00)
[2021-12-03] MEDS ORDERED: ALBUTEROL HFA 8 GM INHALER INH PRN (16:18)
[2021-12-03] MEDS ORDERED: hydrOXYzine HCl 25 MG TAB PO STA (16:37)
--- NOTE | 2021-12-03 17:07 | Electrocardiogram Report ---
Test Reason : Blood Pressure : / mmHG Vent. Rate : 073 BPM Atrial Rate : 073 BPM P-R Int : 148 ms QRS Dur : 104 ms QT Int : 396 ms P-R-T Axes : 054 -32 014 degrees QTc Int : 436 ms Normal sinus rhythm Left axis deviation Abnormal ECG When compared with ECG of 25-NOV-2021 15:18, T wave inversion now evident in Inferior leads T wave amplitude has decreased in Anterior leads Confirmed by Leon House ([id number]) on 12/03/2021 5:07:04 PM Referred By: Shemar Castillo Confirmed By:Leon House
[2021-12-03] MEDS: SUCRALFATE 1 GM TAB PO SCH ×2 (17:18→19:52)
[2021-12-03] MEDS ORDERED: PSYLLIUM or GUAR GUM FIBER POWDER PACKET PO ONE (20:19)
[2021-12-04] MEDS: oxyCODONE HCL IR 5 MG TAB (IMMEDIATE RELEASE) PO PRN ×3 (01:19→20:11)
[2021-12-04] MEDS: ONDANSETRON INJ 2 MG/ML 2 ML VIAL IV PRN (01:19)
[2021-12-04 06:44] LABS: Basophils # (auto) 0.09 K/uL (0-0.2); Eosinophils % (auto) 2.2 %; Hematocrit (blood only) 32.4 % (40.1-51.0); Hemoglobin 11.4 g/dl (14.0-18.0); Immature Granulocytes # (auto) 0.03 K/uL (0.00-0.02); Immature Granulocytes % (auto) 0.3 %; Lymphocytes # (auto) 1.15 K/uL (1.2-3.4); Lymphocytes % (auto) 12.4 %; Mean Corpuscular Hemoglobin 31.8 pg (25.0-34.0); Mean Corpuscular Hgb Conc 35.2 g/dL (32.0-36.0); Mean Corpuscular Volume 90.5 fL (80.0-100.0); Mean Platelet Volume 10.2 fL (9.4-12.4); Monocytes # (auto) 1.19 K/uL (0.24-0.82); Monocytes % (auto) 12.9 %; Neutrophils % (auto) 71.2 %; Platelet Count 177 K/uL (130-400); RDW Coefficient of Variation 12.2 % (11.5-14.5); RDW Standard Deviation 40.7 fL (36.4-46.3); Red Blood Count 3.58 M/uL (4.63-6.08); White Blood Count 9.26 K/ul (4.8-10.8)
[2021-12-04 07:03] LABS: BUN Creatinine Ratio 8.4 (10-20); Calcium 8.8 mg/dl (8.5-10.1); Creatinine Clr Calc Pharmacy 59.1 ml/min; Est GFR (African American) 65.3 ml/min; Est GFR (Non-African American) 56.3 ml/min; Potassium 3.4 mmol/L (3.5-5.1)
[2021-12-04] MEDS: PANTOprazole 40 MG TAB PO SCH (08:20)
[2021-12-04] MEDS: DULoxetine HCL 20 MG CAP PO SCH (08:20)
[2021-12-04] MEDS: SUCRALFATE 1 GM TAB PO SCH ×4 (08:20→20:11)
[2021-12-04] MEDS: amLODIPine BESYLATE 5 MG TAB PO SCH (08:20)
[2021-12-04] MEDS: HEPARIN SOD 5,000 UNIT/0.5 ML VIAL SQ SCH ×2 (08:20→20:12)
[2021-12-04] MEDS: TAMSULOSIN HCL 0.4 MG CAP PO SCH (08:20)
[2021-12-04] MEDS: CYANOCOBALAMIN 1000 MCG/ML VIAL IM SCH (08:20)
[2021-12-04] MEDS: DOCUSATE SODIUM 100 MG CAP PO SCH ×2 (08:20→20:12)
[2021-12-04] MEDS: FAMOTIDINE 20 MG in SYRINGE 3 ML IV SCH (08:20)
[2021-12-04] MEDS: PSYLLIUM or GUAR GUM FIBER POWDER PACKET PO SCH (08:20)
--- NOTE | 2021-12-04 08:51 | Urology Progress Note ---
Date of Service December 04, 2021 Assessment & Plan (1) Kidney lesion, [place], left: Plan 66-year-old male who is status post robotic left partial nephrectomy on 12/01/2021 Abdominal pain and nausea improving Continue gastroparesis diet as well as PPI and Pepcid per GI recommendation Medicine following the patient is stable Patient did have hyponatremia today but reportedly numerous patient's have had low sodium levels and suspect error. We will resend this value. [place] catheter out and voiding spontaneously Hemoglobin stable Hopeful for discharge home later this evening if continues to clinically improve Admission and Anticipated Discharge Date Admission Date: December 01, 2021 Subjective Afebrile with stable vitals. Urine output appropriate. Hemoglobin and labs stable outside of some hyponatremia. Reports feeling better today. Nausea has improved. Tolerating regular diet. Yet to pass flatus or have a bowel movement. Voiding without issue. Pain is controlled with oral medication. Review of Systems Review of Systems: 14 point review of systems negative outside of what is listed above in HPI Physical Exam Physical Exam: General: Alert and oriented, no acute distress HEENT: Normocephalic, mucous membranes moist Pulmonary: Nonlabored respirations Abdomen: Nondistended, nontender, soft Extremities: Moves all 4 spontaneously Neuro: No gross deficits Skin: Warm, dry, no rashes noted Results & Data ([facility]) Vital Signs (Past 12 Hours) Vital Signs Temp Pulse Resp BP Pulse Ox O2 Del Method 12/04/21 07:59 36.8 C 72 18 136/74 92 Room Air 12/04/21 01:27 36.8 C 12/03/21 22:03 36.9 C 89 18 129/74 92 Room Air PG Care Time/CCT Total # of Minutes Spent Total Time Spent with Patient: Total time spent is greater than 50% in coordination of care (as documented) at patient's floor/unit and/or counseling patient: Coding Level of Care Code 27991 Subseq Hosp Care Lvl 2 Diagnoses Kidney lesion, [place], left N28.9
[2021-12-04] MEDS ORDERED: POTASSIUM CHLORIDE CRTAB 20 MEQ TABCR PO STA (09:38)
[2021-12-04 11:28] LABS: BUN Creatinine Ratio 8.7 (10-20); Calcium 8.5 mg/dl (8.5-10.1); Creatinine Clr Calc Pharmacy 60.9 ml/min; Est GFR (African American) 67.8 ml/min; Est GFR (Non-African American) 58.5 ml/min; Potassium 3.6 mmol/L (3.5-5.1)
--- NOTE | 2021-12-04 11:58 | Communication Note ---
Date of Service: December 04, 2021 Patient repeat CXR for nausea/sob evening 12/03, negative titrated back to RA Given dose of vistaril which helped drastically for nerves -- discussed with urology consider continuing Planned for d/c today but low Na. Discussed with primary issues with lab analyzer this AM, repeat stable 135 Ok for d/c and outpatient follow up from medical standpoint and encouraged continued bowel regimen/ambulation at d/c (seen walking halls with this morning) Please call with any questions/concerns.
[2021-12-04] MEDS: PROMETHAZINE HCL 12.5 MG in SODIUM CHLORIDE 0.9% 50 ML IV PRN ×2 (13:19→22:42)
[2021-12-04] MEDS: MAGNESIUM HYDROXIDE SUSP 30 ML UDC PO PRN ×2 (13:32→20:10)
[2021-12-04 17:45] LABS: Anion Gap 7.9 (3-11)
[2021-12-04] MEDS: hydrOXYzine HCl 10 MG TAB PO PRN (22:42)
[2021-12-05] MEDS: PSYLLIUM or GUAR GUM FIBER POWDER PACKET PO SCH (08:11)
[2021-12-05] MEDS: amLODIPine BESYLATE 5 MG TAB PO SCH ×2 (08:12→08:54)
[2021-12-05] MEDS: DOCUSATE SODIUM 100 MG CAP PO SCH ×3 (08:12→21:19)
[2021-12-05] MEDS: FAMOTIDINE 20 MG in SYRINGE 3 ML IV SCH (08:12)
[2021-12-05] MEDS: TAMSULOSIN HCL 0.4 MG CAP PO SCH ×2 (08:12→08:54)
[2021-12-05] MEDS: PANTOprazole 40 MG TAB PO SCH (08:12)
[2021-12-05] MEDS: HEPARIN SOD 5,000 UNIT/0.5 ML VIAL SQ SCH ×2 (08:12→21:16)
[2021-12-05] MEDS: SUCRALFATE 1 GM TAB PO SCH ×4 (08:12→21:18)
[2021-12-05] MEDS: DULoxetine HCL 20 MG CAP PO SCH (08:12)
--- NOTE | 2021-12-05 08:43 | Urology Progress Note ---
Date of Service December 05, 2021 Assessment & Plan (1) Kidney lesion, [place], left: Plan 66-year-old male who is status post robotic left partial nephrectomy on 12/01/2021 - Postop day #4. - Remains afebrile and hemodynamically stable. - Labs reviewed- Wbc 7.84, Hemoglobin 11.2, Creatinine 1.27. - Still with some nausea this morning, managing with IV Phenergan and not unexpected given his hx of chronic nausea. - Minimal pain, continue PO analgesics as needed. - Voiding spontaneously, urine output appears adequate. - Continue gastroparesis diet as well as PPI and Pepcid per GI recommendation. - Encourage ambulation. - Hopeful for discharge home later today if continues to clinically improve. - Appreciate medicine and gastroenterology recommendations. Admission and Anticipated Discharge Date Admission Date: December 01, 2021 Subjective Postop day #4 status post robot-assisted left partial nephrectomy. Patient examined at bedside this AM. Awake, resting bed on arrival. No acute distress. Denies any significant pain at present. Incisions are appropriate, ledy intact. Some nausea this morning, received IV Phenergan. He did have a bowel movement earlier this morning as well. Feeling a little better now. He ate half of his breakfast this morning and tolerated well. +Belching. No vomiting. No fevers or chills. Voiding without issue. Urine output appears adequate. He does not feel ready to go home at this point, possibly later today. Review of Systems Constitutional: as per Subjective / HPI Cardiovascular: no chest pain and no dyspnea Gastrointestinal: as per Subjective / HPI Genitourinary: + as per Subjective / HPI Physical Exam Constitutional: no acute distress Respiratory: no respiratory distress and no labored breathing Cardiovascular: Extremities: no calf tenderness Gastrointestinal (Abdomen): Percussion/Palpation: + abdomen tender (Mild generalized tenderness with palpation) and abdomen soft; no guarding and abdomen not rigid Incisions appropriate, ledy intact Skin: No visible rashes or lesions Neurologic: awake Psychiatric: Orientation: alert and oriented x 3 Results & Data ([facility]) Vital Signs (Past 12 Hours) Vital Signs Temp Pulse Resp BP Pulse Ox O2 Del Method 12/05/21 08:05 36.9 C 73 16 151/79 H 95 Room Air 12/04/21 22:42 36.9 C 83 18 147/81 H 92 Room Air PG Care Time/CCT Total # of Minutes Spent Total Time Spent with Patient: Total time spent is greater than 50% in coordination of care (as documented) at patient's floor/unit and/or counseling patient: Coding Level of Care Code None Diagnoses Kidney lesion, [place], left N28.9
[2021-12-05] MEDS: PROMETHAZINE HCL 12.5 MG in SODIUM CHLORIDE 0.9% 50 ML IV PRN (08:55)
[2021-12-05 10:02] LABS: Basophils # (auto) 0.06 K/uL (0-0.2); Basophils % (auto) 0.8 %; Eosinophils # (auto) 0.19 K/uL (0-0.50); Eosinophils % (auto) 2.4 %; Hematocrit (blood only) 31.9 % (40.1-51.0); Hemoglobin 11.2 g/dl (14.0-18.0); Immature Granulocytes # (auto) 0.05 K/uL (0.00-0.02); Immature Granulocytes % (auto) 0.6 %; Lymphocytes % (auto) 10.2 %; Mean Corpuscular Hemoglobin 31.6 pg (25.0-34.0); Mean Corpuscular Hgb Conc 35.1 g/dL (32.0-36.0); Mean Corpuscular Volume 90.1 fL (80.0-100.0); Mean Platelet Volume 10.4 fL (9.4-12.4); Monocytes # (auto) 0.86 K/uL (0.24-0.82); Neutrophils # (auto) 5.88 K/uL (1.4-6.5); Platelet Count 214 K/uL (130-400); RDW Standard Deviation 39.8 fL (36.4-46.3); Red Blood Count 3.54 M/uL (4.63-6.08); White Blood Count 7.84 K/ul (4.8-10.8)
[2021-12-05 10:28] LABS: BUN Creatinine Ratio 9.4 (10-20); Calcium 8.7 mg/dl (8.5-10.1); Creatinine Clr Calc Pharmacy 60.9 ml/min; Est GFR (African American) 67.8 ml/min; Est GFR (Non-African American) 58.5 ml/min; Potassium 3.6 mmol/L (3.5-5.1)
[2021-12-05] MEDS: oxyCODONE HCL IR 5 MG TAB (IMMEDIATE RELEASE) PO PRN (11:45)
[2021-12-05] MEDS: hydrOXYzine HCl 10 MG TAB PO PRN (14:24)
--- NOTE | 2021-12-05 14:41 | Communication Note ---
Date of Service: December 05, 2021 Patient seen this afternoon to discuss Vistaril at d/c for anxiety as discussed with Urology. Patient questioned if the Duloxetine is substitutes for his Dexilant Dr Henao gives him. Discussed Duloxetine is Cymbalta, he hasn't taken this for some time. Discontinued and likely causing GI upset as had caused in the past. Vistaril given and improvement. He states prior addition to Xanax in the past and he did take Vistaril at rehab to get off this. Discussed addiction risk low, low dose. He would like to take with Tylenol tonight to limit oxycodone and is hopeful for discharge tomorrow. Of note, also states no longer takes oxybutynin. Not getting inpatient, and discontinued from home medication rec. Otherwise ambulating/feeling well, pain improving and spacing out his oxycodone. +BM this morning. Questions/concerns addressed. D/c in AM per urology. Please call with any questions/concerns.
[2021-12-06] MEDS: hydrOXYzine HCl 10 MG TAB PO PRN (00:08)
[2021-12-06] MEDS: PROMETHAZINE HCL 12.5 MG in SODIUM CHLORIDE 0.9% 50 ML IV PRN (04:57)
[2021-12-06] MEDS: PANTOprazole 40 MG TAB PO SCH (08:16)
[2021-12-06] MEDS: DOCUSATE SODIUM 100 MG CAP PO SCH (08:16)
[2021-12-06] MEDS: amLODIPine BESYLATE 5 MG TAB PO SCH (08:16)
[2021-12-06] MEDS: SUCRALFATE 1 GM TAB PO SCH (08:17)
[2021-12-06] MEDS: HEPARIN SOD 5,000 UNIT/0.5 ML VIAL SQ SCH (08:17)
[2021-12-06] MEDS: TAMSULOSIN HCL 0.4 MG CAP PO SCH (08:17)
[2021-12-06] MEDS: PSYLLIUM or GUAR GUM FIBER POWDER PACKET PO SCH (08:17)
[2021-12-06] MEDS: FAMOTIDINE 20 MG in SYRINGE 3 ML IV SCH (08:21)
[2021-12-06 09:03] LABS: BUN Creatinine Ratio 8.9 (10-20); Calcium 9.1 mg/dl (8.5-10.1); Creatinine Clr Calc Pharmacy 62.4 ml/min; Est GFR (African American) 69.8 ml/min; Est GFR (Non-African American) 60.2 ml/min; Potassium 3.7 mmol/L (3.5-5.1)
--- NOTE | 2021-12-06 09:17 | Urology Progress Note ---
Date of Service December 06, 2021 Assessment & Plan (1) Kidney lesion, [place], left: Plan: 66-year-old male who is status post robotic left partial nephrectomy on 12/01/2021. - Postop day #5. - Remains afebrile and hemodynamically stable. - Labs reviewed -Creatinine 1.24 today. - Still with some nausea this morning, managing with IV Phenergan and not unexpected given his hx of chronic nausea. - Continue gastroparesis diet as well as PPI and Pepcid per GI recommendation. - Appreciate medicine and gastroenterology recommendations. - Home medications reconciled yesterday. - Minimal pain, continue PO analgesics as needed. - Voiding spontaneously, urine output appears adequate. - He is ambulating will continue to encourage. - Incisions appropriate. - Hopeful for discharge home later this am if continues to clinically improve. Patient reassessed at 1000. He is ready for discharge. Case discussed with medicine. Orders placed for discharge to home today. Expected clinical course reviewed, all questions answered. Follow-up appointments in place. Admission and Anticipated Discharge Date Admission Date: December 01, 2021 Subjective Postop day #5 status post robot-assisted left partial nephrectomy. Patient examined at bedside this AM. Awake, sitting up at the side of the bed on arrival. No acute distress. Denies any significant pain at present. Incisions are appropriate, ledy intact. Some nausea this morning, received IV Phenergan. He has been passing gas, notes about 3 BMs post surgery. Tolerating regular diet. +Belching. No vomiting. No fevers or chills. Voiding without issue. Urine output appears adequate. Review of Systems Constitutional: as per Subjective / HPI Gastrointestinal: as per Subjective / HPI Genitourinary: + as per Subjective / HPI Physical Exam Constitutional: no acute distress Respiratory: no respiratory distress and no labored breathing Cardiovascular: Extremities: no calf tenderness and no pedal edema Gastrointestinal (Abdomen): Percussion/Palpation: + abdomen tender (Mild generalized tenderness with palpation) and abdomen soft; no guarding and abdomen not rigid Musculoskeletal: Head/Neck/Chest: normocephalic and head atraumatic Skin: Dressings C/D/I. Dressings removed. Incisions healthy and well approximated, ledy intact Neurologic: awake Psychiatric: Orientation: alert and oriented x 3 Results & Data ([facility]) Vital Signs (Past 12 Hours) Vital Signs Temp Pulse Resp BP Pulse Ox O2 Del Method 12/06/21 08:01 36.9 C 68 16 167/86 H 96 Room Air 12/05/21 21:15 Room Air 12/05/21 21:58 37.1 C 75 14 149/83 H 94 Room Air PG Care Time/CCT Total # of Minutes Spent Total Time Spent with Patient: Total time spent is greater than 50% in coordination of care (as documented) at patient's floor/unit and/or counseling patient: Coding Level of Care Code None Diagnoses Kidney lesion, [place], left N28.9
--- NOTE | 2021-12-06 09:28 | Communication Note ---
Date of Service: December 06, 2021 Patient seen this morning per discussion with Urology and labs stable but patient with ongoing nausea, chronic. As discussed with patient, likely GI sx exacerbated by continued Cymbalta use while inpatient as top side effects. Did get 10mg dose vistaril last evening but didn't get great sleep. Also discussed maybe better sleep at home and increased dose of Vistaril as needed. Had BM and using fiber, continued. 3BM during inpatient stay. Discussed continuing with lots of water as long as having bowel movements. After discussion, arrive, re-discussed. Patient would like to go home then today and agreeable to continue Vistaril. He would like to discuss pain control -- consider breakthrough oxycodone, short course 2-3 tablets for breakthrough ONLY and close follow up with PCP given prior addiction issues. Did discuss tramadol, patient unable to tolerate that in the past. Messaged Urology about discussion, to come back around and see patient/prepare for discharge. Please call with any questions/concerns.
[2021-12-06 10:15] LABS: Basophils # (auto) 0.04 K/uL (0-0.2); Basophils % (auto) 0.6 %; Eosinophils # (auto) 0.18 K/uL (0-0.50); Eosinophils % (auto) 2.8 %; Hematocrit (blood only) 33.7 % (40.1-51.0); Immature Granulocytes # (auto) 0.02 K/uL (0.00-0.02); Immature Granulocytes % (auto) 0.3 %; Lymphocytes # (auto) 0.97 K/uL (1.2-3.4); Lymphocytes % (auto) 15.3 %; Mean Corpuscular Hemoglobin 32.2 pg (25.0-34.0); Mean Corpuscular Hgb Conc 35.6 g/dL (32.0-36.0); Mean Corpuscular Volume 90.3 fL (80.0-100.0); Mean Platelet Volume 11.6 fL (9.4-12.4); Monocytes # (auto) 0.89 K/uL (0.24-0.82); Neutrophils # (auto) 4.26 K/uL (1.4-6.5); Platelet Count 176 K/uL (130-400); RDW Coefficient of Variation 12.1 % (11.5-14.5); RDW Standard Deviation 39.8 fL (36.4-46.3); Red Blood Count 3.73 M/uL (4.63-6.08); White Blood Count 6.36 K/ul (4.8-10.8)
--- NOTE | 2021-12-06 12:39 | Discharge Summary ---
Date of Service December 06, 2021 Admission HPI Per Admitting Provider Patient with enhancing left renal mass. Risk and benefits were discussed at length. Patient elected to undergo robotic assisted laparoscopic partial nephrectomy. Admission Exam Per Admitting Provider General: Alert in no acute distress. HEENT: Inspection normal Psychologic: Normal affect. Respiratory: Nonlabored. No use of accessory muscles. Skin: [place] and Dry. No rashes or visible lesions. Abdomen: Soft, nontender Principal Diagnosis Kidney lesion, red devil, left Discharge Exam Constitutional no acute distress Respiratory no respiratory distress and no labored breathing Cardiovascular Extremities: no calf tenderness and no pedal edema Gastrointestinal (Abdomen) Percussion/Palpation: + abdomen tender (Mild generalized tenderness with palpation) and abdomen soft; no guarding and abdomen not rigid Musculoskeletal Head/Neck/Chest: normocephalic and head atraumatic Neurologic awake Psychiatric Orientation: alert and oriented x 3 Discharge Data Allergies Allergy/AdvReac Type Severity Reaction Status Date / Time latex Allergy Mild REDNESS Verified 12/01/21 07:21 Consultations 12/01/21 14:51 Consult Gastroenterology Routine Consult Hospitalist Routine Procedures Performed Operation Date: 12/01/21 08:15 Actual Procedures p Robotic Assisted Laparoscopic Partial Nephrectomy, Left. Extensive lysis of adhesions.(Left) - Shemar Castillo, DO Hospital Course (1) Kidney lesion, red devil, left: 66-year-old male who is status post robotic left partial nephrectomy on 12/01/2021. - Postop day #5. - Remains afebrile and hemodynamically stable. - Labs reviewed -Creatinine 1.24 today. - Still with some nausea this morning, managing with IV Phenergan and not unexpected given his hx of chronic nausea. - Continue gastroparesis diet as well as PPI and Pepcid per GI recommendation. - Appreciate medicine and gastroenterology recommendations. - Home medications reconciled yesterday. - Minimal pain, continue PO analgesics as needed. - Voiding spontaneously, urine output appears adequate. - He is ambulating will continue to encourage. - Incisions appropriate. - Hopeful for discharge home later this am if continues to clinically improve. Patient reassessed at 1000. He is ready for discharge. Case discussed with medicine. Orders placed for discharge to home today. Expected clinical course reviewed, all questions answered. Follow-up appointments in place. Total Time Total Time Spent Total Time Spent (In Minutes): 29 Discharge Plan Discharge Items Patient Disposition: Home - Self-Care Reason For Visit: Left renal mass Discharge Diagnosis: Left renal mass Condition on Discharge: Good Activity: Per Instructions section Lifting: No more than 25 pounds Bathing Comment: OK to shower. No tub baths or soaks. Sexual Activity: Wait until after follow-up appointment Exercise/Sports: Wait until after follow-up appointment Driving/Machine Use: Do not drive if taking prescription pain medication. Non-emergency contact: Surgeon and Urologist Call non-emergency contact if: you have any medication questions, your pain is not controlled, your pain is worsening, you have a fever, your wound has increased redness, your wound has increased drainage and your wound pain has increased Follow-up/Referrals: Shemar Castillo DO [Physician] - 12/13/21 11:20 am Fuad Mace DO [Primary Care Provider] - 12/09/21 9:15 am Diet: Regular Addtl Attending Provider Instructions: Please take all medications as prescribed and keep all follow-ups as scheduled. Please call our office at [phone] with any questions, concerns or need to reschedule appointments for any reason. We are happy to assist you. You can take Tylenol as needed for pain. A prescription was sent for Percocet to take as needed for breakthrough pain. This medication contains Tylenol. Do not exceed 3000 mg of Tylenol per day. Recovering at home: We recommend having someone with you for the first few days after surgery to help care for you. It is okay to shower tomorrow. Please avoid swimming, bathing or using hot tub until incisions are well healed. Avoid driving until you are not requiring pain medication any further. Walk at least a few times a day. Increase your distance, as you feel able. Stairs in your home are okay. Please avoid strenuous or sexual activity until your follow-up. We recommend using stool softener (i.e. Colace) to prevent constipation and straining, especially the first two weeks post operatively. Call [facility] at [phone] if you experience: Chest pain or trouble breathing (call 911 or go to the hospital). Fever of 101F or higher Symptoms of infection at incision site, including redness or swelling, warmth, or bad-smelling drainage If you are unable to urinate Pain that is not controlled with medicines Addtl Demand Planner Provider Instructions: We checked a B12 level on you and this was low. You have been given shots while in the hospital and should continue oral at discharge 1000mcg daily. Pending Studies at Discharge: Yes Studies:: Pathology Stand-Alone Forms: [facility], Opioid Pain Management, Smoking Cessation Medications and DC Order Prescriptions: New docusate sodium [Colace] 100 mg capsule 100 mg PO BID PRN (Reason: Constipation) Qty: 30 0RF Rx Instructions: Take twice daily for 2 weeks, then as needed thereafter hydroxyzine HCl 10 mg tablet 10 mg PO HS PRN (Reason: nausea) Qty: 7 0RF oxycodone-acetaminophen [Percocet] 5-325 mg tablet 1 tab PO Q8H PRN (Reason: pain) Qty: 3 0RF Rx Instructions: post operative pain cyanocobalamin (vitamin B-12) 1,000 mcg capsule 1,000 mcg PO DAILY Qty: 30 0RF Continued tamsulosin [Flomax] 0.4 mg capsule 0.4 mg PO DAILY Qty: 30 0RF promethazine 25 mg tablet 25 mg PO Q6H PRN (Reason: Nausea) Qty: 30 3RF doxepin 10 mg capsule 10 mg PO .COMPLEX Qty: 60 5RF Rx Instructions: 10 mg PO One or 2 as needed for sleep at night; acetaminophen 500 mg Tablet 1,000 mg PO Q6H PRN (Reason: Pain) amlodipine [Norvasc] 5 mg tablet 5 mg PO QAM famotidine [Pepcid] 20 mg tablet 20 mg PO DAILY PRN (Reason: Acid Reflux) dexlansoprazole [Dexilant] 60 mg capsule,biphase delayed releas 60 mg PO QAM Discharge Orders: Discharge Order (Routine); Ordered 12/06/21 Ordered By: Sarah Cazares Admission Data Admit Date/Time: 12/01/21 12:32 Attending Provider: Shemar Castillo Admit Provider: Shemar Castillo Primary Care Provider: Fuad Mace Other Providers: Lela Dennis ; Saqib Henao ; Aislinn Rivers ; Ayala Faust ; Noy Berry ; Osiris Tinoco ; Wesley Frazier ; Love Ramirez ; Obi Carlisle ; Petty Floyd ; Sue Muñoz ; James Rai ; Giovana Talamantes ; Kori De La Vega ; Mar Ferrari ; Chioma Dominguez ; Lubna Sanchez ; Abner Patel ; Nick Sr ; Kaela Parks ; Anson Joseph Jr ; Delonte Abdi ; Tata Campbell ; Rylan Lopez ; Hernandez Camarillo ; Milad Marin ; Geovany Goddard ; Kayla Olson ; Kaela Soriano ; Gael Chandler ; Vanessa Montilla ; Kyler Prescott ; Shakeel George ; Kadie Nayak ; Shea Malcolm ; Yudy Harris ; Juliocesar Roman ; Satya Arreguin ; Tata Larson ; Zbigniew Burton ; Garrett Cartwright ; Rylan Sherwood ; Danae Garibay ; Mary Alice Merritt ; Duc Vivas ; Viola Smith ; Pedro Meeks ; Franci Le ; Dominguez Howell ; Chely Dobbs ; Arsh Goldberg ; Lucian Freitas Other Interventions: Discharge Summary Assessment (RN) Last Done: 12/06/21 11:29 Coding Level of Care Code D/C DAY MANAGEMENT <30 MINS Diagnoses Kidney lesion, red devil, left N28.9
--- NOTE | 2021-12-13 13:19 | Coding Query ---
PATHOLOGY To promote full compliance with coding requirements relating to patient care, physician participation is requested in all cases of l d rn uncertainty. Please assist us with the question(s) below: Please review the Pathology report and please document any relevant diagnosis(es) below: Diagnosis(es): T1a Papillary Renal Cell Carcinoma Thank you ANIYA Crow [facility]
== END 2021-12-06 12:56 | disposition home or self-care (01) | DRG 658 ==
LOC: ASU 06:53 → 3W 12:32

== ENCOUNTER 2023-12-15 12:58 | Inpatient (IN) ==
[2023-12-15 13:36] LABS: Appearance Urine Clear (Clear); Bacteria Urine Automated None Seen (None Seen); Bilirubin Urine Negative (Negative); Blood Urine 3+ (Negative); Cast Urine Automated 0-2 /lpf (0-2); Color Urine Orange; Epithelial Cell Urine Auto 0-2 /hpf (0-2); Glucose Urine UA Negative (Negative); Ketones Urine Negative (Negative); Leukocyte Esterase Urine 1+ (Negative); Nitrite Urine Negative (Negative); Protein Urine 1+ (Negative); RBC Urine Automated >20 /hpf (0-2); Specific Gravity Urine 1.004 (1.000-1.030); Urobilinogen Urine Negative (Negative)
[2023-12-15] MEDS: KETOROLAC TROMETHAMINE 15 MG/ML VIAL IV STA (13:45)
[2023-12-15] MEDS: ONDANSETRON INJ 2 MG/ML 2 ML VIAL IV STA (13:45)
[2023-12-15 14:03] LABS: Basophils # (auto) 0.07 K/uL (0.00-0.20); Basophils % (auto) 0.8 %; Eosinophils # (auto) 0.07 K/uL (0.00-0.50); Eosinophils % (auto) 0.8 %; Hematocrit (blood only) 40.2 % (42.0-52.0); Hemoglobin 13.6 g/dl (14.0-18.0); Immature Granulocytes # (auto) 0.04 K/uL (0.01-0.20); Immature Granulocytes % (auto) 0.5 %; Lymphocytes # (auto) 1.21 K/uL (1.20-3.40); Lymphocytes % (auto) 13.8 %; Mean Corpuscular Hemoglobin 30.4 pg (25.0-34.0); Mean Corpuscular Hgb Conc 33.8 g/dL (32.0-36.0); Mean Corpuscular Volume 89.7 fL (80.0-100.0); Monocytes # (auto) 0.89 K/uL (0.11-0.59); Monocytes % (auto) 10.2 %; Neutrophils # (auto) 6.47 K/uL (1.40-6.50); Neutrophils % (auto) 73.9 %; Platelet Count 255 K/uL (130-400); RDW Coefficient of Variation 12.8 % (11.5-14.5); Red Blood Count 4.48 M/uL (4.70-6.10); White Blood Count 8.75 K/ul (4.8-10.8)
[2023-12-15 14:17] LABS: BUN Creatinine Ratio 7.7 (10-20); Calcium 9.2 mg/dl (8.6-10.3); Creatinine Clr Calc Pharmacy 49.6 ml/min; Potassium 3.8 mmol/L (3.5-5.1)
[2023-12-15] MEDS ORDERED: ONDANSETRON INJ 2 MG/ML 2 ML VIAL IV PRN (14:53)
[2023-12-15] MEDS ORDERED: ACETAMINOPHEN 325 MG TAB PO PRN (14:53)
[2023-12-15] MEDS: SODIUM CHLORIDE 0.9% 1,000 ML IV SCH (15:03)
[2023-12-15] MEDS: cefTRIAXone SODIUM 2,000 MG/50 ML BAG IV SCH (15:03)
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
--- NOTE | 2023-12-15 15:08 | Emergency Department Note ---
History of Present Illness General Chief complaint: Hematuria Stated complaint: BLOOD IN URINE Time Seen by Provider: 12/15/23 13:13 History of Present Illness Provider complaint: Abdominal pain hematuria. Maximum Pain Intensity: 8 Home Medications Medication Instructions Recorded Confirmed Type acetaminophen 500 mg tablet 1,000 mg PO Q6H PRN Pain 03/07/20 12/12/23 History famotidine 20 mg tablet (Pepcid) 20 mg PO PM Acid Reflux #90 tabs 12/22/22 12/12/23 Rx promethazine 25 mg tablet 25 mg PO Q6H PRN Nausea #30 tabs 02/27/23 12/12/23 Rx amlodipine 5 mg tablet (Norvasc) 5 mg PO QAM #90 tabs 07/16/23 12/12/23 Rx oxybutynin chloride 5 mg 5 mg PO QAM 3 months #90 tabs 08/22/23 12/12/23 Rx tablet,extended release 24 hr cyanocobalamin (vitamin B-12) 1,000 mcg PO QAM 11/26/23 12/12/23 History 1,000 mcg tablet pantoprazole 40 mg tablet,delayed 40 mg PO QAM 11/26/23 12/12/23 History release (Protonix) ciprofloxacin HCl 500 mg tablet 500 mg PO Q12H #14 tabs 12/06/23 12/12/23 Rx (Cipro) phenazopyridine 200 mg tablet 200 mg PO Q8H PRN pain #10 tabs 12/06/23 12/12/23 Rx (Pyridium) Saccharomyces boulardii 250 mg 250 mg PO BID #20 caps 12/12/23 Rx capsule (Florastor) sulfamethoxazole 800 1 tab PO Q12H 10 days #20 tabs 12/12/23 Rx mg-trimethoprim 160 mg tablet tamsulosin 0.4 mg capsule 0.4 mg PO HS #30 caps 12/12/23 Rx Allergies Allergy/AdvReac Type Severity Reaction Status Date / Time latex Allergy Mild skin Verified 12/12/23 18:02 redness Past Med/Surg History Problem List Abdominal pain (Acute) S/P ureteral stent placement (Acute) UTI (urinary tract infection) (Acute) Chronic diarrhea Encounter for preventive care Basal cell carcinoma of forearm Dilated pancreatic duct Pigmented skin lesion of uncertain behavior of torso Skin lesion of back Atypical nevi Genitofemoral neuralgia of left side Chronic pain Elevated serum creatinine Renal cell cancer B12 deficiency Hypomagnesemia Status post nephrectomy Chronic nausea Depression Gastritis Peripheral neuropathy (Chronic) Pericardial cyst (Chronic) just monitoring Nephrolithiasis (Chronic) Irritable bowel syndrome (Chronic) Insomnia (Chronic) Hypertension (Chronic) Hiatal hernia (Chronic) Diverticulosis of colon (Chronic) Anxiety (Chronic) Acid reflux (Chronic) History of bowel resection d/t diverticulitis - [place] - 2002 Medical History Anxiety Peripheral neuropathy Pericardial cyst monitoring, [facility] PRN and PCP. Insomnia IBS (irritable bowel syndrome) Chronic nausea Hx of renal cell carcinoma (2021) partial nephrectomy Renal calculi Hx of diverticulitis of colon Hx of basal cell carcinoma History of COVID-14 June 2021 > not hospitalized > had stomach issues Depression with anxiety BPH with obstruction/lower urinary tract symptoms Anemia hx History of anesthesia reaction (2002) r/t airway - awaking-"difficulty removing airway" X 1 (remote history, unsure of when) [facility] Surgical History History of colon resection [facility], unsure of date (r/t diverticulitis) History of basal cell carcinoma excision H/O partial nephrectomy (11/2021) left (r/t renal cell carcinoma) Skin lesion (07/17/22) FINAL DIAGNOSIS In office procedure Dr. Menchaca A. Skin, "right abdominal wall" (excision): - Compound melanocytic nevus (see comment). B. Skin, right posterior shoulder (excision): - Seborrheic keratoses (see comment). History of hemorrhoidectomy History of arthroscopic knee surgery right History of rectal fissure x2 repair History of colonoscopy History of esophagogastroduodenoscopy (EGD) Hx of cholecystectomy Hx of appendectomy Family History Grandmother (Paternal) Family history of diabetes mellitus Cancer Uncle Family history of diabetes mellitus Diabetes Other No family history of adverse response to anesthesia Social History Smoking Status: Never smoker Tobacco Type: Smokeless Tobacco (Dip or Chew) Second Hand Exposure: No; Do You Dip or Chew Tobacco: No (quit several yrs ago); Hx Alcohol Use: No Hx Substance Use: Yes Last Used Substance Other:: ~11/17/23 (advised on policy) Substance Use Type Other:: marijuana use few times per week Preferred Language: Georgian Communication Ability: Effective Visual Impairment: No Limitations Tube Building Machine Operator Required: No Beliefs That Will Affect Care: None marital status: Current Living Situation: Spouse Current Living Situation Comment: Lives with and son current occupational status: retired How many Children do You have: 2 Feels Safe at Home: Yes during the past year weight has: increased > 10 lbs Physical Exam Vital Signs Vital Signs - 24 hr 12/15/23 13:08 12/15/23 13:49 12/15/23 13:49 Temperature 36.5 C Temperature Source Temporal Artery Scan Pulse Rate 78 Pulse Rate [Apical] 68 Respiratory Rate 18 18 Respiratory Effort / Characteristics Non-Labored Spontaneous Respiratory Depth Normal Respiratory Pattern Regular Blood Pressure 150/81 H Blood Pressure [Right Arm] 127/89 Blood Pressure Mean 104 Blood Pressure Mean [Right Arm] 101 Pulse Oximetry 97 96 96 Oxygen Delivery Method Room Air Sepsis Recent Fever Within 48 Hours No Sepsis New/Unexplained Change in Mental Status N/A Sepsis Action Taken by Nursing No Action Required 12/15/23 14:01 Temperature Temperature Source Pulse Rate 71 Pulse Rate [Apical] Respiratory Rate Respiratory Effort / Characteristics Respiratory Depth Respiratory Pattern Blood Pressure Blood Pressure [Right Arm] Blood Pressure Mean Blood Pressure Mean [Right Arm] Pulse Oximetry Oxygen Delivery Method Sepsis Recent Fever Within 48 Hours Sepsis New/Unexplained Change in Mental Status Sepsis Action Taken by Nursing Course Administered Medications Ceftriaxone Sodium (Rocephin) 2,000 mg in 50 mls @ 100 mls/hr IV Q24H [facility] Stop: 12/25/23 14:59 Last Admin: 12/15/23 15:03 Dose: 100 mls/hr Documented By: LISA Sodium Chloride (Nss) 1,000 mls @ 100 mls/hr IV .Q10H [facility] Stop: 12/16/23 00:59 Last Admin: 12/15/23 15:03 Dose: 100 mls/hr Documented By: LISA Discontinued Medications Ketorolac Tromethamine (Ketorolac Tromethamine 15 Mg/Ml Vial) 15 mg IV NOW STA Stop: 12/15/23 13:27 Last Admin: 12/15/23 13:45 Dose: 15 mg Documented By: LISA Ondansetron HCl (Ondansetron Inj 2 Mg/Ml 2 Ml Vial) 4 mg IV NOW STA Stop: 12/15/23 13:27 Last Admin: 12/15/23 13:45 Dose: 4 mg Documented By: LISA Medical Decision Making Laboratory Data 12/15/23 13:42 12/15/23 13:42 Lab Results 12/15/23 12/15/23 Range/Units 13:12 13:42 WBC 8.75 (4.8-10.8) K/ul RBC 4.48 L (4.70-6.10) M/uL Hgb 13.6 L (14.0-18.0) g/dl Hct 40.2 L (42.0-52.0) % MCV 89.7 (80.0-100.0) fL MCH 30.4 (25.0-34.0) pg MCHC 33.8 (32.0-36.0) g/dL RDW Std Deviation 42.0 (36.4-46.3) fL RDW Coeff of Suzy 12.8 (11.5-14.5) % Plt Count 255 (130-400) K/uL MPV 10.0 (9.4-12.4) fL Immature Gran % (Auto) 0.5 % Neut % (Auto) 73.9 % Lymph % (Auto) 13.8 % [place] % (Auto) 10.2 % Eos % (Auto) 0.8 % Baso % (Auto) 0.8 % Neut # (Auto) 6.47 (1.40-6.50) K/uL Lymph # (Auto) 1.21 (1.20-3.40) K/uL [place] # (Auto) 0.89 H (0.11-0.59) K/uL Eos # (Auto) 0.07 (0.00-0.50) K/uL Baso # (Auto) 0.07 (0.00-0.20) K/uL Immature Gran # (Auto) 0.04 (0.01-0.20) K/uL Sodium 138 (136-145) mmol/L Potassium 3.8 (3.5-5.1) mmol/L Chloride 108 H (98-107) mmol/L Carbon Dioxide 22 (21-32) mmol/L Anion Gap 8 (3-11) BUN 13 (6-23) mg/dl Creatinine 1.68 H (0.6-1.4) mg/dl Est Cr Clr Drug Dosing 49.6 ml/min eGFR 43.99 BUN/Creatinine Ratio 7.7 L (10-20) Glucose 108 H (70-99(Fasting)) mg/dl Lactate 1.1 (0.4-2.0) mmol/L Calcium 9.2 (8.6-10.3) mg/dl Urine Color [place] Urine Appearance Clear (Clear) Urine pH 7.0 (4.5-7.5) Ur Specific [place] 1.004 (1.000-1.030) Urine Protein 1+ H (Negative) Urine Glucose (UA) Negative (Negative) Urine Ketones Negative (Negative) Urine Blood 3+ H (Negative) Urine Nitrite Negative (Negative) Urine Bilirubin Negative (Negative) Urine Urobilinogen Negative (Negative) Ur Leukocyte Esterase 1+ H (Negative) Urine WBC (Auto) 6-10 H (0-5) /hpf Urine RBC (Auto) >20 H (0-2) /hpf U Hyaline Cast (Auto) 0-2 (0-2) /lpf U Epithel Cells (Auto) 0-2 (0-2) /hpf Urine Bacteria (Auto) None Seen (None Seen) Discharge Plan Visit Data Chief Complaint: Hematuria Stated Complaint: BLOOD IN URINE ED Provider: Thomas Sequeira Forms Stand Alone Forms: [facility] Prescriptions Prescriptions: No Action promethazine 25 mg tablet 25 mg PO Q6H PRN (Reason: Nausea) Qty: 30 3RF oxybutynin chloride 5 mg tablet extended release 24hr 5 mg PO QAM 90 Days Qty: 90 3RF famotidine [Pepcid] 20 mg tablet 20 mg PO PM Qty: 90 3RF amlodipine [Norvasc] 5 mg tablet 5 mg PO QAM Qty: 90 1RF acetaminophen 500 mg Tablet 1,000 mg PO Q6H PRN (Reason: Pain) sulfamethoxazole-trimethoprim 800-160 mg tablet 1 tab PO Q12H 10 Days Qty: 20 0RF Saccharomyces boulardii [Florastor] 250 mg capsule 250 mg PO BID Qty: 20 0RF Rx Instructions: swallow whole tamsulosin 0.4 mg capsule 0.4 mg PO HS Qty: 30 0RF cyanocobalamin (vitamin B-12) 1,000 mcg tablet 1,000 mcg PO QAM pantoprazole [Protonix] 40 mg tablet,delayed release (DR/EC) 40 mg PO QAM phenazopyridine [Pyridium] 200 mg tablet 200 mg PO Q8H PRN (Reason: pain) Qty: 10 0RF ciprofloxacin HCl [Cipro] 500 mg tablet 500 mg PO Q12H Qty: 14 0RF Referrals Referrals: Fuad Mace DO [Primary Care Provider] -
--- NOTE | 2023-12-15 19:06 | Emergency Department Note ---
History of Present Illness General Chief Complaint: Hematuria Stated Complaint: BLOOD IN URINE Time Seen by Provider: 12/15/23 13:13 History of Present Illness Provider Complaint: abdominal pain and flank pain Onset (ago): 1 week(s) Pain Consistency: intermittent Location: diffuse Maximum Pain Intensity: 8 Current Pain Intensity: 8 Quality: + stabbing and + sharp Relieved By: + nothing Exacerbated By: + other (Urinating) Context: + recent surgery/procedure (Recent stent placement by Dr. Castillo and removal of stent); no foreign travel, no possible food poisoning or no recent antibiotic use Associated Symptoms: + nausea, + dysuria and + hematuria; no vomiting, no diarrhea, no fever, no chills, no constipation, no hematemesis, no chest pain and no breathing difficulty Home Medications Medication Instructions Recorded Confirmed Type acetaminophen 500 mg tablet 1,000 mg PO Q6H PRN Pain 03/07/20 12/15/23 History promethazine 25 mg tablet 25 mg PO Q6H PRN Nausea #30 tabs 02/27/23 12/15/23 Rx amlodipine 5 mg tablet (Norvasc) 5 mg PO QAM #90 tabs 07/16/23 12/15/23 Rx oxybutynin chloride 5 mg 5 mg PO QAM 3 months #90 tabs 08/22/23 12/15/23 Rx tablet,extended release 24 hr cyanocobalamin (vitamin B-12) 1,000 mcg PO QAM 11/26/23 12/15/23 History 1,000 mcg tablet pantoprazole 40 mg tablet,delayed 40 mg PO QAM 11/26/23 12/15/23 History release (Protonix) phenazopyridine 200 mg tablet 200 mg PO Q8H PRN pain #10 tabs 12/06/23 12/15/23 Rx (Pyridium) Saccharomyces boulardii 250 mg 250 mg PO BID #20 caps 12/12/23 12/15/23 Rx capsule (Florastor) sulfamethoxazole 800 1 tab PO Q12H 10 days #20 tabs 12/12/23 12/15/23 Rx mg-trimethoprim 160 mg tablet tamsulosin 0.4 mg capsule 0.4 mg PO HS #30 caps 12/12/23 12/15/23 Rx Allergies Allergy/AdvReac Type Severity Reaction Status Date / Time latex Allergy Mild skin Verified 12/12/23 18:02 redness Past Med/Surg History Problem List SHAGUFTA (acute kidney injury) (Acute) Abdominal pain (Acute) S/P ureteral stent placement (Acute) UTI (urinary tract infection) (Acute) Chronic diarrhea Encounter for preventive care Basal cell carcinoma of forearm Dilated pancreatic duct Pigmented skin lesion of uncertain behavior of torso Skin lesion of back Atypical nevi Genitofemoral neuralgia of left side Chronic pain Elevated serum creatinine Renal cell cancer B12 deficiency Hypomagnesemia Status post nephrectomy Chronic nausea Depression Gastritis Peripheral neuropathy (Chronic) Pericardial cyst (Chronic) just monitoring Nephrolithiasis (Chronic) Irritable bowel syndrome (Chronic) Insomnia (Chronic) Hypertension (Chronic) Hiatal hernia (Chronic) Diverticulosis of colon (Chronic) Anxiety (Chronic) Acid reflux (Chronic) History of bowel resection d/t diverticulitis - [place] - 2002 Medical History Anxiety Peripheral neuropathy Pericardial cyst monitoring, [facility] PRN and PCP. Insomnia IBS (irritable bowel syndrome) Chronic nausea Hx of renal cell carcinoma (2021) partial nephrectomy Renal calculi Hx of diverticulitis of colon Hx of basal cell carcinoma History of COVID-14 June 2021 > not hospitalized > had stomach issues Depression with anxiety BPH with obstruction/lower urinary tract symptoms Anemia hx History of anesthesia reaction (2002) r/t airway - awaking-"difficulty removing airway" X 1 (remote history, unsure of when) [facility] [place] Surgical [facility] (r/t diverticulitis) History of basal cell carcinoma excision H/O partial nephrectomy (11/2021) left (r/t renal cell carcinoma) Skin lesion (07/17/22) FINAL DIAGNOSIS In office procedure Dr. Menchaca A. Skin, "right abdominal wall" (excision): - Compound melanocytic nevus (see comment). B. Skin, right posterior shoulder (excision): - Seborrheic keratoses (see comment). History of hemorrhoidectomy History of arthroscopic knee surgery right History of rectal fissure x2 repair History of colonoscopy History of esophagogastroduodenoscopy (EGD) Hx of cholecystectomy Hx of appendectomy Family History Grandmother (Paternal) Family history of diabetes mellitus Cancer Uncle Family history of diabetes mellitus Diabetes Other No family history of adverse response to anesthesia Social History Smoking Status: Never smoker Tobacco Type: Smokeless Tobacco (Dip or Chew) Second Hand Exposure: No; Do You Dip or Chew Tobacco: No; Hx Alcohol Use: No Hx Substance Use: No Preferred Language: Guyanese Communication Ability: Effective Visual Impairment: No Limitations Residential Case Manager Required: No Beliefs That Will Affect Care: None marital status: Current Living Situation: Spouse Current Living Situation Comment: Lives with and son current occupational status: retired How many Children do You have: 2 Feels Safe at Home: Yes during the past year weight has: increased > 10 lbs Assistive Devices: None Physical Exam 2 Vital Signs: Vital Signs - 24 hr 12/15/23 13:08 12/15/23 13:49 12/15/23 13:49 Temperature 36.5 C Temperature Source Temporal Artery Sc an Pulse Rate 78 Pulse Rate [Apical ] 68 Respiratory Rate 18 18 Respiratory Effort / Characteristics Non-Labored Sponta neous Respiratory Depth Normal Respiratory Patter n Regular Blood Pressure 150/81 H Blood Pressure [Ri ght Arm] 127/89 Blood Pressure Dionna n 104 Blood Pressure Dionna n [Right Arm] 101 Pulse Oximetry 97 96 96 Oxygen Delivery Me thod Room Air Sepsis Recent Feve r Within 48 Hours No Sepsis New/Unexpla ined Change in Men kerwin Status N/A Sepsis Action Take n by Nursing No Action Required 12/15/23 14:01 Temperature Temperature Source Pulse Rate 71 Pulse Rate [Apical ] Respiratory Rate Respiratory Effort / Characteristics Respiratory Depth Respiratory Patter n Blood Pressure Blood Pressure [Ri ght Arm] Blood Pressure Dionna n Blood Pressure Dionna n [Right Arm] Pulse Oximetry Oxygen Delivery Me thod Sepsis Recent Feve r Within 48 Hours Sepsis New/Unexpla ined Change in Men kerwin Status Sepsis Action Take n by Nursing Physical Exam: Physical Exam GENERAL: oriented to person, place, and time. appears well-developed and well- nourished. She does not appear distressed. HENT: Exam performed. -Head: Normocephalic and atraumatic. -Right Ear: External ear normal. No mastoid erythema -Left Ear: External ear normal. No mastoid erythema -Mouth/Throat: The oropharynx is clear and moist. No trismus in the jaw. No dental abscesses or uvula swelling. No oropharyngeal exudate or tonsillar abscesses. EYES: Conjunctivae and EOM are normal.Right eye exhibits no discharge. Left eye exhibits no discharge. No scleral icterus. NECK: Normal range of motion. Neck supple. No JVD present. No tracheal deviation and normal range of motion present. CV: Normal rate, regular rhythm, normal heart sounds and intact distal pulses. There is no peripheral edema. Palpable radial pulses bue. PULM/CHEST: Effort normal and breath sounds normal. No respiratory distress. No stridor. no wheezes.no rales. -Chest Wall: no tenderness to palpation ABD: The abdomen is soft. Bowel sounds are normal. no distension. No mass is present. There is diffuse tenderness to palpation. There is no rebound, no guarding. No CVA tenderness bilaterally. MUSC/SKEL: Normal range of motion. There is no peripheral edema, tenderness or deformity. NEURO: Motor and sensation grossly intact. SKIN: Skin is warm and dry. not diaphoretic. PSYCH: normal mood and affect. Behavior is normal. Judgment and thought content normal. Course Course 1313: The patient was evaluated in room B10. A complete history and physical exam was performed Cardiac monitoring: An order was placed for continuous cardiac monitoring. The monitor shows a rate of 80 with sinus rhythm interpreted by nd 1430: Vital signs stable. Labs are significant for an SHAGUFTA. Discussed case with Dr. Tate on-call urology for Dr. Castillo. He states that patient can be admitted if his pain is not under control or we can try to do a postvoid scan and if its within normal limits patient can be discharged. He states that if the postvoid scan has a significant amount of urine to place a catheter in him. Patient is very uncomfortable. Will plan to admit the patient to the hospitalist team. Discussed case with Dr. Veloz who came to bedside to evaluate patient for admission. It is thought that the patient's SHAGUFTA could be due to the Bactrim that he is on. Administered Medications Ceftriaxone Sodium (Rocephin) 2,000 mg in 50 mls @ 100 mls/hr IV Q24H [facility] Stop: 10/29/24 14:59 Last Infusion: 12/15/23 15:35 Dose: Infused Documented By: Admin: 12/15/23 15:03 Dose: 100 mls/hr Documented By: LISA Sodium Chloride (Nss) 1,000 mls @ 100 mls/hr IV .Q10H [facility] Stop: 12/16/23 00:59 Last Admin: 12/15/23 15:03 Dose: 100 mls/hr Documented By: LISA Discontinued Medications Ketorolac Tromethamine (Ketorolac Tromethamine 15 Mg/Ml Vial) 15 mg IV NOW STA Stop: 12/15/23 13:27 Last Admin: 12/15/23 13:45 Dose: 15 mg Documented By: LISA Ondansetron HCl (Ondansetron Inj 2 Mg/Ml 2 Ml Vial) 4 mg IV NOW STA Stop: 12/15/23 13:27 Last Admin: 12/15/23 13:45 Dose: 4 mg Documented By: LISA Medical Decision Making Medical Records Attestation: I reviewed the patient's medical records. External medical records reviewed. CT from December 12, 2023 showed right ureteral stent in place with urothelial thickening of the right renal pelvis and ureter. Urine culture from that day is negative. 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 Laboratory Data Attestation: I reviewed the patient's lab results. 12/15/23 13:42 12/15/23 13:42 Lab Results 12/15/23 12/15/23 Range/Units 13:12 13:42 WBC 8.75 (4.8-10.8) K/ul RBC 4.48 L (4.70-6.10) M/uL Hgb 13.6 L (14.0-18.0) g/dl Hct 40.2 L (42.0-52.0) % MCV 89.7 (80.0-100.0) fL MCH 30.4 (25.0-34.0) pg MCHC 33.8 (32.0-36.0) g/dL RDW Std Deviation 42.0 (36.4-46.3) fL RDW Coeff of Suzy 12.8 (11.5-14.5) % Plt Count 255 (130-400) K/uL MPV 10.0 (9.4-12.4) fL Immature Gran % (Auto) 0.5 % Neut % (Auto) 73.9 % Lymph % (Auto) 13.8 % [place] % (Auto) 10.2 % Eos % (Auto) 0.8 % Baso % (Auto) 0.8 % Neut # (Auto) 6.47 (1.40-6.50) K/uL Lymph # (Auto) 1.21 (1.20-3.40) K/uL [place] # (Auto) 0.89 H (0.11-0.59) K/uL Eos # (Auto) 0.07 (0.00-0.50) K/uL Baso # (Auto) 0.07 (0.00-0.20) K/uL Immature Gran # (Auto) 0.04 (0.01-0.20) K/uL Sodium 138 (136-145) mmol/L Potassium 3.8 (3.5-5.1) mmol/L Chloride 108 H (98-107) mmol/L Carbon Dioxide 22 (21-32) mmol/L Anion Gap 8 (3-11) BUN 13 (6-23) mg/dl Creatinine 1.68 H (0.6-1.4) mg/dl Est Cr Clr Drug Dosing 49.6 ml/min eGFR 43.99 BUN/Creatinine Ratio 7.7 L (10-20) Glucose 108 H (70-99(Fasting)) mg/dl Lactate 1.1 (0.4-2.0) mmol/L Calcium 9.2 (8.6-10.3) mg/dl Urine Color [place] Urine Appearance Clear (Clear) Urine pH 7.0 (4.5-7.5) Ur Specific [place] 1.004 (1.000-1.030) Urine Protein 1+ H (Negative) Urine Glucose (UA) Negative (Negative) Urine Ketones Negative (Negative) Urine Blood 3+ H (Negative) Urine Nitrite Negative (Negative) Urine Bilirubin Negative (Negative) Urine Urobilinogen Negative (Negative) Ur Leukocyte Esterase 1+ H (Negative) Urine WBC (Auto) 6-10 H (0-5) /hpf Urine RBC (Auto) >20 H (0-2) /hpf U Hyaline Cast (Auto) 0-2 (0-2) /lpf U Epithel Cells (Auto) 0-2 (0-2) /hpf Urine Bacteria (Auto) None Seen (None Seen) [facility] Narrative 1313: The patient was evaluated in room B10. A complete history and physical exam was performed Cardiac monitoring: An order was placed for continuous cardiac monitoring. The monitor shows a rate of 80 with sinus rhythm interpreted by me 1430: Vital signs stable. Labs are significant for an SHAGUFTA. Discussed case with Dr. Tate on-call urology for Dr. Castillo. He states that patient can be admitted if his pain is not under control or we can try to do a postvoid scan and if its within normal limits patient can be discharged. He states that if the postvoid scan has a significant amount of urine to place a catheter in him. Patient is very uncomfortable. Will plan to admit the patient to the hospitalist team. Discussed case with Dr. Veloz who came to bedside to evaluate patient for admission. It is thought that the patient's SHAGUFTA could be due to the Bactrim that he is on. Impression & Plan SHAGUFTA (acute kidney injury) Discharge Plan Visit Data Chief Complaint: Hematuria Stated Complaint: BLOOD IN URINE ED Provider: Thomas Sequeira Discharge Problem: SHAGUFTA (acute kidney injury) Patient Disposition: Admitted As Inpatient Discharge Instructions Interventions: ED Discharge Assessment Last Done: 12/15/23 15:58
--- NOTE | 2023-12-15 19:32 | Urology Consultation ---
Date of Consultation December 15, 2023 Assessment & Plan (1) SHAGUFTA (acute kidney injury): (2) S/P ureteral stent placement: (3) UTI (urinary tract infection): (4) Prostate cancer: Plan This is a 68-year-old male s/p ureteroscopy and laser lithotripsy with ureteral stent placement as well as transrectal ultrasound-guided prostate biopsy. Given his recent transrectal prostate biopsy, one major concern would be the possibility of sepsis. He has not been having fevers and he has no leukocytosis. He does not appear septic at this point, however agree with broad-spectrum antibiotic coverage in the form of ceftriaxone. If he clinically worsens, would consider blood cultures and further broadening antibiotic coverage. Ureteral stent was in good position when last imaged and it would be uncommon for this to move. He may be having some irritation within the bladder from the distal curl of the stent. This could be managed with Tylenol, Pyridium, potentially try oxybutynin for bladder spasms. Continue to monitor output and check PVR. If postvoid residual is elevated, could consider catheter placement or CIC. For now, would recommend holding off stent removal. He is scheduled for this as an outpatient in the upcoming week. Hematuria has resolved at this time. It is not uncommon to have intermittent blood in the urine as long as the ureteral stent is in place. As long as he is not passing clots or unable to void, would continue to encourage hydration and monitoring. Prostate cancer was present in a single focus of grade group 1 disease on his biopsy. I will review these results with him on 12/23, however will overall defer management of prostate cancer to his primary urologist, Dr. Castillo. 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 He underwent cystoscopy, right ureteroscopy and laser lithotripsy with stent placement on 12/06/2023. He additionally underwent transrectal ultrasound- guided prostate biopsy at that time. He was discharged home on ciprofloxacin however return to the emergency department on 12/12/2023 with lower abdominal pain, nausea and gross hematuria. Lab work at that time was reassuring. Urinalysis was suspicious for infection. He was given a dose of IV ceftriaxone in the ED, then was switched to Bactrim and discharged home. He returned to the ED on 12/14 with recurrence of hematuria, feeling fatigued and having vague abdominal pain. Labs in the ED demonstrated normal WBC (8.75). His creatinine was slightly elevated at 1.68. Glucose was slightly elevated at 108. Due to ongoing pain and not feeling well, he was admitted to the hospital. Urology was consulted given his recent procedure. At the bedside, he feels like he is emptying his bladder well, although feels the stent is somewhat irritating. Hematuria has cleared and he is trying to stay well-hydrated. He denies any fevers or chills but overall feels fatigued and achy. Allergies Allergy/AdvReac Type Severity Reaction Status Date / Time latex Allergy Mild skin Verified 12/12/23 18:02 redness Home Medications Medication Instructions Recorded Confirmed Type acetaminophen 500 mg tablet 1,000 mg PO Q6H PRN Pain 03/07/20 12/15/23 History promethazine 25 mg tablet 25 mg PO Q6H PRN Nausea #30 tabs 02/27/23 12/15/23 Rx amlodipine 5 mg tablet (Norvasc) 5 mg PO QAM #90 tabs 07/16/23 12/15/23 Rx oxybutynin chloride 5 mg 5 mg PO QAM 3 months #90 tabs 08/22/23 12/15/23 Rx tablet,extended release 24 hr cyanocobalamin (vitamin B-12) 1,000 mcg PO QAM 11/26/23 12/15/23 History 1,000 mcg tablet pantoprazole 40 mg tablet,delayed 40 mg PO QAM 11/26/23 12/15/23 History release (Protonix) phenazopyridine 200 mg tablet 200 mg PO Q8H PRN pain #10 tabs 12/06/23 12/15/23 Rx (Pyridium) Saccharomyces boulardii 250 mg 250 mg PO BID #20 caps 12/12/23 12/15/23 Rx capsule (Florastor) sulfamethoxazole 800 1 tab PO Q12H 10 days #20 tabs 12/12/23 12/15/23 Rx mg-trimethoprim 160 mg tablet tamsulosin 0.4 mg capsule 0.4 mg PO HS #30 caps 12/12/23 12/15/23 Rx Patient History Medical History Anxiety Peripheral neuropathy Pericardial cyst monitoring, [facility] PRN and PCP. Insomnia IBS (irritable bowel syndrome) Chronic nausea Hx of renal cell carcinoma (2021) partial nephrectomy Renal calculi Hx of diverticulitis of colon Hx of basal cell carcinoma History of COVID-14 June 2021 > not hospitalized > had stomach issues Depression with anxiety BPH with obstruction/lower urinary tract symptoms Anemia hx History of anesthesia reaction (2002) r/t airway - awaking-"difficulty removing airway" X 1 (remote history, unsure of when) [facility] History of colon resection [facility], unsure of date (r/t diverticulitis) History of basal cell carcinoma excision H/O partial nephrectomy (11/2021) left (r/t renal cell carcinoma) Skin lesion (07/17/22) FINAL DIAGNOSIS In office procedure Dr. Menchaca A. Skin, "right abdominal wall" (excision): - Compound melanocytic nevus (see comment). B. Skin, right posterior shoulder (excision): - Seborrheic keratoses (see comment). History of hemorrhoidectomy History of arthroscopic knee surgery right History of rectal fissure x2 repair History of colonoscopy History of esophagogastroduodenoscopy (EGD) Hx of cholecystectomy Hx of appendectomy Family History Grandmother (Paternal) Family history of diabetes mellitus Cancer Uncle Family history of diabetes mellitus Diabetes Other No family history of adverse response to anesthesia Social History Smoking Status: Never smoker Tobacco Type: Smokeless Tobacco (Dip or Chew) Second Hand Exposure: No; Do You Dip or Chew Tobacco: No; Hx Alcohol Use: No Hx Substance Use: No Preferred Language: Amharic Communication Ability: Effective Visual Impairment: No Limitations Fiber Designer Required: No Beliefs That Will Affect Care: None marital status: Current Living Situation: Spouse Current Living Situation Comment: Lives with and son current occupational status: retired How many Children do You have: 2 Feels Safe at Home: Yes during the past year weight has: increased > 10 lbs Assistive Devices: None Review of Systems Review of Systems: 12 point review of systems negative exce pt for otherwise indicated. Physical Exam Constitutional: well developed and well nourished; no acute distress Eyes: + anicteric sclerae; pupils not irregula r Respiratory: normal respiratory effort; no respiratory distress, does not use accessory muscles and no cough Cardiovascular: well perfused Gastrointestinal (Abdomen): Inspection/Auscultation: abdomen normal to inspection; abdomen not distended Musculoskeletal: Extremities: extremities normal to inspection Skin: normal turgor; no rashes and no lesions Neurologic: moves all extremities and awake Psychiatric: Orientation: alert and oriented x 3 Results & Data Vital Signs (Past 12 Hours) Vital Signs Temp Pulse Pulse Resp BP BP Pulse Ox 12/15/23 16:16 36.6 C 83 18 154/83 H 80 L 12/15/23 15:08 73 18 132/85 98 12/15/23 14:01 71 12/15/23 13:49 96 12/15/23 13:49 68 18 127/89 96 12/15/23 13:08 36.5 C 78 18 150/81 H 97 O2 Del Method 12/15/23 16:16 Room Air 12/15/23 15:08 12/15/23 14:01 12/15/23 13:49 12/15/23 13:49 12/15/23 13:08 Room Air PG Care Time/CCT Total # of Minutes Spent Total Time Spent with Patient: Total time spent is greater than 50% in coordination of care (as documented) at patient's floor/unit and/or counseling patient: Coding Level of Care Code 37762 IN/OBS CONSULT LVL 4,60M Diagnoses SHAGUFTA (acute kidney injury) N17.9 S/P ureteral stent placement Z96.0 UTI (urinary tract infection) N39.0; R31.9 Hematuria presence: with hematuria Urinary tract infection type: site unspecified Prostate cancer C61 (3) UTI (urinary tract infection) Hematuria presence: with hematuria Urinary tract infection type: site unspecified Qualified Code(s): N39.0 - Urinary tract infection, site not specified; R31.9 - Hematuria, unspecified
[2023-12-15] MEDS: PROMETHAZINE 6.25 MG/50.25 ML BAG IV PRN (20:20)
[2023-12-15] MEDS ORDERED: PHENAZOPYRIDINE HCL 200 MG TAB PO PRN (20:22)
[2023-12-15] MEDS: TAMSULOSIN HCL 0.4 MG CAP PO SCH (21:55)
[2023-12-15] MEDS: SACCHAROMYCES BOULARDII 250 MG CAP PO SCH (21:55)
[2023-12-16 06:55] LABS: Basophils # (auto) 0.07 K/uL (0.00-0.20); Basophils % (auto) 1.2 %; Eosinophils # (auto) 0.19 K/uL (0.00-0.50); Eosinophils % (auto) 3.2 %; Hematocrit (blood only) 36.8 % (42.0-52.0); Hemoglobin 12.7 g/dl (14.0-18.0); Immature Granulocytes # (auto) 0.02 K/uL (0.01-0.20); Immature Granulocytes % (auto) 0.3 %; Lymphocytes # (auto) 1.23 K/uL (1.20-3.40); Mean Corpuscular Hgb Conc 34.5 g/dL (32.0-36.0); Mean Corpuscular Volume 89.8 fL (80.0-100.0); Mean Platelet Volume 10.1 fL (9.4-12.4); Monocytes # (auto) 0.64 K/uL (0.11-0.59); Monocytes % (auto) 10.9 %; Neutrophils # (auto) 3.71 K/uL (1.40-6.50); Neutrophils % (auto) 63.4 %; Platelet Count 245 K/uL (130-400); RDW Coefficient of Variation 12.6 % (11.5-14.5); RDW Standard Deviation 41.5 fL (36.4-46.3); White Blood Count 5.86 K/ul (4.8-10.8)
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
[2023-12-16 07:20] LABS: Albumin Globulin Ratio 1.6 (0.9-2); Albumin Level 3.8 gm/dl (3.4-5.0); BUN Creatinine Ratio 6.4 (10-20); Bilirubin,Total 0.6 mg/dl (0.2-1.0); Calcium 8.7 mg/dl (8.6-10.3); Chol HDL Ratio 3.2 (0-5); Creatinine Clr Calc Pharmacy 53.4 ml/min; Globulin 2.4 gm/dl (2.5-4.0); Potassium 3.9 mmol/L (3.5-5.1); Total Protein 6.2 gm/dl (6.0-8.3)
[2023-12-16 07:35] LABS: Thyroid Stimulating Hormone 2.687 uIu/ml (0.300-4.500)
[2023-12-16] MEDS: PANTOprazole 40 MG TAB PO SCH (07:58)
[2023-12-16] MEDS: amLODIPine BESYLATE 5 MG TAB PO SCH (07:58)
[2023-12-16] MEDS: OXYBUTYNIN CHLORIDE XL 5 MG TABCR PO SCH (07:58)
[2023-12-16] MEDS: CYANOCOBALAMIN (B-12) 500 MCG TABLET PO SCH (07:58)
--- NOTE | 2023-12-16 09:05 | Urology Progress Note ---
Date of Service December 16, 2023 Assessment & Plan (1) SHAGUFTA (acute kidney injury): Plan: SHAGUFTA is improving. Would recommend continuing to encourage hydration, monitor urine output. Reasonable to check bladder scan/postvoid residual to make sure he is emptying. There may have been a component of elevation in his creatinine from Bactrim that is now improving off of this medication. (2) S/P ureteral stent placement: Plan: Would maintain his ureteral stent for now. He is scheduled for stent removal in the upcoming week in the office. (3) UTI (urinary tract infection): Plan: Agree with ongoing ceftriaxone. Prior urine culture was negative, however with transrectal prostate biopsy at the same time as recent surgery, he is at elevated risk for infection. (4) Prostate cancer: Plan: We briefly discussed his biopsy results, specifically that they demonstrated grade group 1 prostate cancer in a single core. We briefly discussed management options such as surgery, radiation or active surveillance. I encouraged him to think about these options and plan to talk to Dr. Castillo for more information as an outpatient (5) Hematuria: Plan: Hematuria has resolved. Will continue to treat infection and recommend he stay well-hydrated. As long as his ureteral stent is in place, he may have some blood in the urine. Plan If he is feeling better today, I think would be reasonable for discharge home with follow-up as scheduled in the urology office for stent removal. Would consider sending him on Keflex given reactions to ciprofloxacin and Bactrim. Admission and Anticipated Discharge Date Admission Date: December 15, 2023 Subjective Feeling okay, slightly better than yesterday Denies any significant flank pain, still some fullness of the lower abdomen Still having a little bit of nausea Not having any more hematuria. Denies dysuria. Denies any fevers or chills No leukocytosis (WBC 5.86), creatinine improved slightly from 1.68-1.56. Physical Exam Physical Exam: Well-appearing, NAD Urine is clear, light yellow in the urinal at the bedside Results & Data Vital Signs (Past 12 Hours) Vital Signs Temp Pulse Resp BP Pulse Ox O2 Del Method 12/16/23 07:55 83 16 144/85 H 97 Room Air 12/16/23 07:25 36.7 C 68 18 128/84 97 Room Air PG Care Time/CCT Total # of Minutes Spent Total Time Spent with Patient: Total time spent is greater than 50% in coordination of care (as documented) at patient's floor/unit and/or counseling patient: Coding Level of Care Code 00775 SUB INP/OBS CARE Diagnoses SHAGUFTA (acute kidney injury) N17.9 S/P ureteral stent placement Z96.0 UTI (urinary tract infection) N39.0; R31.9 Hematuria presence: with hematuria Urinary tract infection type: site unspecified Prostate cancer C61 Hematuria R31.9 (3) UTI (urinary tract infection) Hematuria presence: with hematuria Urinary tract infection type: site unspecified Qualified Code(s): N39.0 - Urinary tract infection, site not specified; R31.9 - Hematuria, unspecified
[2023-12-16] MEDS: METOCLOPRAMIDE HCL INJ 5 MG/ML 2 ML VIAL IV STA (13:54)
[2023-12-16] MEDS: METOCLOPRAMIDE HCL INJ 5 MG/ML 2 ML VIAL IV PRN (21:39)
[2023-12-17 07:24] VITALS: RESP 18; TEMP 97.9; O2SAT 96
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
[2023-12-17 08:14] LABS: Hematocrit (blood only) 40.1 % (42.0-52.0); Hemoglobin 13.5 g/dl (14.0-18.0); Mean Corpuscular Hemoglobin 30.6 pg (25.0-34.0); Mean Corpuscular Hgb Conc 33.7 g/dL (32.0-36.0); Mean Corpuscular Volume 90.9 fL (80.0-100.0); Platelet Count 277 K/uL (130-400); RDW Coefficient of Variation 12.7 % (11.5-14.5); RDW Standard Deviation 42.1 fL (36.4-46.3); Red Blood Count 4.41 M/uL (4.70-6.10); White Blood Count 6.06 K/ul (4.8-10.8)
[2023-12-17 08:30] LABS: BUN Creatinine Ratio 8.2 (10-20); Calcium 9.2 mg/dl (8.6-10.3); Creatinine Clr Calc Pharmacy 56.7 ml/min; Potassium 4.2 mmol/L (3.5-5.1)
--- NOTE | 2023-12-17 12:28 | Billing Data ---
Date of Service December 17, 2023 Coding Level of Care Code 04464 IN/OBS DISCH 30 MIN/LESS
[2023-12-17 12:43] VITALS: BP 154/83; PULSE 83
== END 2023-12-17 13:01 | disposition home or self-care (01) | DRG 683 ==
LOC: ED 12:58 → SUATTDRO 14:53 → 3E 14:53